=== PATIENT | female | born 1960 | race Caucasian/White ===

== ENCOUNTER → 2016-07-10 | Outpatient (CLI) | payer OTHER ==
[~2016-07-10] MED LIST: ALBUAER INH; AMLO-110 PO; ASCO1CAP3 PO; BACL10TA PO; BENZ100C7 PO; BENZ100C84 PO; BROM500T2 PO; CALC500C3; CLR10 PO; COEN30CA8 PO; COEN400C5 PO; CYAN500T PO; DRGTP12; DRGTP12 TOP; DXM/4 PO; FENT25DI10 TD; FLV1 PO; FNTTP25 TD; GFNSR600 PO; IMD2X PO; IPRASOL4 INH; LEVO112T4 PO; LVQ750 PO; MULT-506 PO; NAPR220T PO; NEBMAC; NYSS5 PO; OMEP40CA41 PO; ONDA8TAB6 PO; OPTIRAY 320 IV PRN; OXGN; OXYC1TAB3 PO; PRED5PAK3 PO; PROC1TAB5 PO; PSYL48.59 PO; SACC250C3 PO; SENN-61 PO; TRAM-10 PO; Tumeric PO; tumeric PO
--- NOTE | 2016-07-10 10:41 | DIAGNOSTIC IMAGING REPORT ---
CT SCAN OF THE ABDOMEN AND PELVIS WITH IV CONTRAST CLINICAL HISTORY: Lung cancer follow-up. COMPARISON STUDY: Abdominal CT dated 03/11/2016. TECHNIQUE: Following the IV administration of 115 cc of Optiray 320, CT scan of the abdomen and pelvis is performed from the lung bases to the proximal femora. Images are reviewed in the axial, sagittal, and coronal planes. IV contrast was administered without complication. Automated dose control exposure was utilized. CT DOSE: 1181.13 mGy.cm FINDINGS: Lung bases: The heart is normal in size noting trace pericardial effusion. There is extensive intralobular septal thickening and diffuse nodularity identified throughout the lower lobes bilaterally. The appearance is consistent with multifocal metastatic disease with probable lymphangitic spread of tumor. The largest nodule seen image #1 in the right lower lobe and measures 1.7 cm. No airspace consolidation is identified typical for pneumonia. There is a trace right pleural effusion. Liver: The contrast-enhanced liver is normal in size, contour, and attenuation. A 7 mm cyst is present in the right lobe. There is no intrahepatic biliary ductal dilatation. The hepatic veins and portal veins are patent. Gallbladder: There are calcified gallstones. Spleen: Normal in size and attenuation. Pancreas: Unremarkable. Adrenal glands: Unremarkable. Kidneys: The contrast enhanced kidneys demonstrate mild cortical atrophy and are without hydronephrosis. The kidneys enhance symmetrically. Left renal cysts measure up to 1.8 cm. Additional subcentimeter cortical hypodensities also likely represent cysts but are too small for definitive characterization. Abdominal vasculature: The abdominal aorta is normal in course and caliber. Bowel: The small bowel and colon are normal in course and caliber. The appendix is well-visualized and normal. Peritoneum: There is no intraperitoneal free air or abdominal ascites. There is a fat-containing umbilical hernia. Lymphadenopathy: Prominent iliac chain lymph nodes are again noted. These measure up to 9 mm in maximum length and are similar to the 03/11/2016 examination. Pelvic viscera: The bladder, uterus, and adnexa are normal as visualized. Calcified phleboliths are present in the pelvis. Skeletal structures: Subtle osteolytic/osteoblastic lesions are identified. The largest lesion is seen involving the superior left acetabulum on image #64. Additional subtle lesions are present within both radha, in the right sacrum. IMPRESSION: 1. Multifocal osseous metastatic disease throughout the bony pelvis is similar in appearance to 03/11/2016. 2. Extensive metastatic disease is present at both lung bases, likely representing lymphangitic spread of tumor. 3. No evidence of progressive metastatic disease is seen in the abdomen or pelvis. 4. Cholelithiasis. 5. Trace right pleural effusion. 6. Additional findings as above. Electronically signed by: Khang Whalen M.D. 07/10/2016 10:39 AM Dictated Date/Time: 07/10/2016 10:27 AM
--- NOTE | 2016-07-10 10:47 | DIAGNOSTIC IMAGING REPORT ---
CHEST CT WITH CONTRAST CT DOSE: HISTORY: Lung cancer. TECHNIQUE: Multiaxial CT images of the chest were performed following the intravenous administration of contrast. COMPARISON: Chest CT 03/11/2016. FINDINGS: The central airways are patent. No pneumothorax. No pleural effusions. No suspicious lytic or blastic osseous lesions. No significant pericardial effusion. No significant mediastinal or hilar lymphadenopathy. The central pulmonary arteries are patent. Interval progression of the nodular interstitial thickening consistent with lymphangitic spread of metastatic disease. The multiple scattered pulmonary nodules have also increased in size. Dominant masslike opacity within the right upper lobe has increased in size. This currently measures 3.9 cm, previous measuring 2.4 cm. IMPRESSION: Interval progression of the pulmonary metastatic disease. Electronically signed by: Michael Rodriguez M.D. 07/10/2016 10:45 AM Dictated Date/Time: 07/10/2016 10:39 AM
== END | disposition home or self-care (01) ==
LOC: C.CTS 09:38
PROVIDERS: ATTEND Internal Medicine Hematology & Oncology
DX: C34.80 Malignant neoplasm of overlapping sites of unspecified bronchus and lung (principal)

== ENCOUNTER → 2016-09-03 | Outpatient (CLI) | payer OTHER ==
--- NOTE | 2016-09-03 15:10 | DIAGNOSTIC IMAGING REPORT ---
CT OF THE CHEST WITH IV CONTRAST CLINICAL HISTORY: NON SMALL CELL LUNG CANCER COMPARISON STUDY: 07/10/2016 TECHNIQUE: Following the IV administration of 92 mL of Optiray-320, CT of the thorax was performed from the thoracic inlet to the lung bases. Images are reviewed in the axial, sagittal, and coronal planes. IV contrast was administered without complication. CT DOSE: 542.22 mGy.cm FINDINGS: Thyroid: Imaged portions of the thyroid gland are normal in appearance. Thoracic aorta: The thoracic aorta is normal in course and caliber, noting standard 3-vessel arch anatomy. No aneurysm or dissection is seen. Pulmonary vasculature: The pulmonary trunk is normal in caliber. There are no central filling defects identified to suggest pulmonary embolus. Note that this examination was not protocoled for the evaluation of pulmonary emboli. HEART: The heart is mildly enlarged. There is no significant pericardial effusion. Lungs and pleural spaces: There is septal edema. There is interval increase in the innumerable bilateral pulmonary nodules which now appear somewhat confluent. The dominant right upper lobe masslike opacity measures 5.5 cm. Mediastinum: There is no mediastinal lymphadenopathy. [place]: There is no evidence of pathologic hilar adenopathy. Axilla: Clear. Upper abdomen: There is a stable 1 cm hypodensity within the liver likely representing a cyst. The 17 mm left renal cyst. There is cholelithiasis. Skeletal structures: There are no lytic or blastic osseous lesions. IMPRESSION: 1. Significant interval progression in the extensive bilateral nodular airspace opacities with interstitial thickening. The findings are likely secondary to progressive metastatic disease with lymphangitic spread. Electronically signed by: Leon Calvin M.D. 09/03/2016 3:08 PM Dictated Date/Time: 09/03/2016 3:03 PM
== END | disposition home or self-care (01) ==
LOC: C.CTS 14:40
PROVIDERS: ATTEND Internal Medicine Hematology & Oncology
DX: R06.02 Shortness of breath (principal); R05 Cough; Z85.118 Personal history of other malignant neoplasm of bronchus and lung

== ENCOUNTER 2016-11-16 16:57 | Inpatient (IN) | payer OTHER ==
[~2016-11-16] VITALS: Ht 162.6 cm; Wt 77.6 kg
[~2016-11-16 16:57] MED LIST changes: -BENZ100C7 PO; -BENZ100C84 PO; -CALC500C3; -COEN30CA8 PO; -DRGTP12 TOP; -FNTTP25 TD; -GFNSR600 PO; -IMD2X PO; -IPRASOL4 INH; -LVQ750 PO; -NEBMAC; -NYSS5 PO; -OMEP40CA41 PO; -OPTIRAY 320 IV PRN; -OXGN; -PRED5PAK3 PO; -SACC250C3 PO; -tumeric PO
[2016-11-16] MEDS ORDERED: SODIUM CHLORIDE 0.9% 1000ML 2,000 ML IV STA (17:30)
[2016-11-16 17:48] LABS: VEN BLOOD GAS BASE EXCESS 3.7 mEq/L; VENOUS BLOOD GAS PCO2 45 mmHg (38.0-50.0); VENOUS BLOOD GAS PO2 31 mmHg
[2016-11-16 17:51] LABS: VEN BLD GAS O2 SATURATION < 60.0 %
--- NOTE | 2016-11-16 17:58 | DIAGNOSTIC IMAGING REPORT ---
CHEST ONE VIEW PORTABLE HISTORY: 56 years-old Female acute chest pain with shortness of breath. History of lung cancer. COMPARISON: Chest CT 09/03/2016, chest radiograph 12/19/2015 TECHNIQUE: Portable upright AP view of the chest. FINDINGS: Cardiac silhouette is enlarged. There is progression of the multifocal somewhat confluent appearance of pulmonary nodules throughout the lungs bilaterally with conglomerate opacities present within the left lung base. There is blunting of left costophrenic angle. No pneumothorax identified. The bones appear grossly intact. IMPRESSION: Progression of multifocal confluent appearance of bilateral multilobar distribution of pulmonary nodules. Focal airspace opacities within the left lung base with small left pleural effusion concerning for superimposed pneumonia. The above report was generated using voice recognition software. It may contain grammatical, syntax or spelling errors. Electronically signed by: Raul Coreas M.D. 11/16/2016 5:57 PM Dictated Date/Time: 11/16/2016 5:54 PM
[2016-11-16] MEDS ORDERED: CEFEPIME IV 1,000 MG in DEXTROSE 5% 100ML 100 ML IV STA (18:02)
[2016-11-16] MEDS ORDERED: SODIUM CHLORIDE 0.9% 1000ML 1,000 ML IV STA (18:02)
[2016-11-16 18:14] LABS: BASO % 0.1 %; BASO ABS # 0.01 K/uL (0-0.2); EOS % 0.5 %; HEMATOCRIT 33.2 % (37-47); IG% 2.2 %; LYMPH % 0.8 %; LYMPH ABS # 0.16 K/uL (1.2-3.4); MEAN CELL VOLUME 73.8 fL (80-100); MEAN CORPUSCULAR HEMOGLOBIN 23.1 pg (25-34); MEAN CORPUSCULAR HGB CONC 31.3 g/dl (32-36); MEAN PLATELET VOLUME 9.3 fL (7.4-10.4); MONO % 5.7 %; NEUT % 90.7 %; PLATELET COUNT 293 K/uL (130-400); WHITE BLOOD COUNT 19.13 K/uL (4.8-10.8)
[2016-11-16 18:19] LABS: ISTAT CREATININE 0.5 mg/dl (0.6-1.3); ISTAT HEMOGLOBIN 12.6 g/dl (12.0-16.0)
[2016-11-16] MEDS ORDERED: LEVAQUIN 750MG / 150ML D5W IV STA (18:20)
[2016-11-16 18:25] VITALS: PULSE 114; O2SAT 96
[2016-11-16 18:27] LABS: INR 1.1 (0.9-1.1)
[2016-11-16] MEDS ORDERED: OPTIRAY 320 IV PRN (18:30)
[2016-11-16 18:33] LABS: BUN/CREATININE RATIO 37.6 (10-20); CALCIUM 8.2 mg/dl (8.5-10.1); CREATININE 0.45 mg/dl (0.60-1.20); POTASSIUM 4.2 mmol/L (3.5-5.1)
--- NOTE | 2016-11-16 18:38 | DIAGNOSTIC IMAGING REPORT ---
(CHEST FOR PE) ANGIO WITH CT DOSE: 598.21 mGy.cm HISTORY: 56 years-old Female presents with acute shortness of breath, hypoxia and confusion. History of lung cancer. TECHNIQUE: Multiple CTA images of the chest were obtained after the intravenous administration of 94 ml Optiray 320. Coronal and sagittal MIPS were obtained from the axial data set and were submitted for review. A dose lowering technique was utilized adhering to the principles of ALARA. COMPARISON: Chest CT 09/03/2016 FINDINGS: CTA: Heart is normal in size with trace pericardial effusion. Thoracic aorta is normal in course and caliber without dissection or aneurysm. The pulmonary arterial tree is well-opacified to the subsegmental branches, however evaluation is limited secondary to extensive respiratory motion. No focal pulmonary arterial tree filling defects are seen to suggest pulmonary embolus. There is reflux of contrast into the IVC, likely secondary to technique. CT CHEST: No dominant thyroid nodule is identified. No pathologic adenopathy about the chest is seen. There is a small left pleural effusion. Segmental airspace consolidation is present within the left lower lobe, notably involving the basilar segments. Additional scattered consolidative opacities are seen within the superior segment left lower lobe. This consolidation demonstrates nonuniform enhancement suggesting pneumonia. There is progression of diffuse nodular intralobular septal thickening with confluent pulmonary nodules and scattered groundglass opacities in a multilobar distribution bilaterally. There is a crazy paving pattern present within the left upper lobe. Central airways appear patent. 8 mm low attenuating lesion of the hepatic dome is unchanged from comparison. Nonspecific mild marek hepatis adenopathy is seen with lymph nodes measuring up to 1.0 cm. There is mild edema about the left flank subcutaneous tissues. Lytic lesions measuring up to 4 mm are seen within the mid vertebral bodies, notably at T6, T7 and T8, new from prior exam suspicious for metastasis no associated pathologic fracture. Similar-appearing lesion is seen at L1. IMPRESSION: 1. Limited study secondary to extensive respiratory motion. Within the limitations of the study, there is no acute aortic pathology or evidence of pulmonary thromboembolic disease. 2. Segmental airspace opacities of the left lower lobe with small left pleural effusion suggests pneumonia. 3. 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 Crazy paving pattern of disease involves the left upper lobe. 4. Interval development of scattered lytic lesions throughout the thoracic and imaged upper lumbar spine without pathologic fracture suggest bony metastasis. The above report was generated using voice recognition software. It may contain grammatical, syntax or spelling errors. Electronically signed by: Raul Coreas M.D. 11/16/2016 6:36 PM Dictated Date/Time: 11/16/2016 6:23 PM
[2016-11-16 18:45] LABS: CKMB/CK RATIO 4.4 (0-3.0)
[2016-11-16 18:52] LABS: ANISOCYTOSIS PRESENT; COMPLETE YES; HYPERSEGMENTED POLYS 1+; SPHEROCYTE 1+
[2016-11-16] MEDS ORDERED: OXYCODONE HCL IR 5 MG TAB (IMMEDIATE RELEASE) PO PRN (19:15)
[2016-11-16] MEDS ORDERED: ONDANSETRON INJ 2 MG/ML 2 ML VIAL IV PRN (19:15)
[2016-11-16] MEDS ORDERED: ACETAMINOPHEN 325 MG TAB PO PRN (19:15)
[2016-11-16] MEDS ORDERED: TRAMADOL HCL 50 MG TAB PO PRN (19:15)
[2016-11-16] MEDS ORDERED: BACLOFEN 10 MG TAB PO PRN (19:15)
[2016-11-16] MEDS ORDERED: NITROGLYCERIN 0.4 MG SL PER TAB CHARGE SL PRN (19:15)
[2016-11-16] MEDS ORDERED: VANCOMYCIN 1GM/270ML NSS ONE (19:26)
[2016-11-16] MEDS ORDERED: VANCOMYCIN INJ 2,000 MG in SODIUM CHLORIDE 0.9% 500ML 500 ML IV STA (19:31)
[2016-11-16] MEDS ORDERED: PIPERACILLIN/TAZOBACTAM 4.5 GM/100ML D5W IV STA (19:32)
[2016-11-16 19:39] LABS: URINE APPEARANCE CLEAR (CLEAR); URINE BILIRUBIN NEG (NEG); URINE COLOR YELLOW; URINE EPITHELIAL CELL AUTO 20-30 /lpf (0-5); URINE NITRITE POS (NEG); URINE PH 6.5 (4.5-7.5); URINE SPECIFIC GRAVITY > 1.045 (1.000-1.030); UROBILINOGEN NEG (NEG); ZZUR CULT IF INDIC CLEAN CATCH YES
[2016-11-16] MEDS ORDERED: FNTTP25 TD (19:41)
[2016-11-16 19:45] LABS: MANUAL MICROSCOPIC REQUIRED? NO; REVIEW REQ? NO
[2016-11-16] MEDS ORDERED: PIPERACILL/TAZOBAC CONSULT ACTIVE PRN (19:45)
[2016-11-16] MEDS ORDERED: VANCOMYCIN CONSULT ACTIVE PRN (19:45)
[2016-11-16 20:22] VITALS: PULSE 117; O2SAT 94
[2016-11-16 20:28] VITALS: BP 164/101; PULSE 117; TEMP 36.9; O2SAT 91; Ht 162.6 cm; Wt 77.6 kg
[2016-11-16] MEDS: FENTANYL PATCH REMOVE & WASTE SCH (20:59)
[2016-11-16] MEDS ORDERED: METHYLPREDNISOLONE IV 125 MG in SYRINGE 0 ML IV ONE (21:00)
[2016-11-16] MEDS: FENTANYL 12 MCG/HR TDSY TD SCH (21:00)
[2016-11-16] MEDS: ENOXAPARIN 40 MG/0.4 ML SYR SC SCH (21:12)
--- NOTE | 2016-11-16 21:14 | History and Physical ---
History & Physical Date & Time of Service: Nov 16, 2016 at 21:03 Chief Complaint: Acute Respiratory Failure With Hypoxia And Primary Care Physician: Reynold Marks M.D. History of Present Illness Source: patient, family The patient is a 56-year-old female who underwent combination chemotherapy and radiation therapy for lung cancer, and has had progressively worsening shortness of breath over the past several days. She became acutely worse today , presents to the emergency department, and was immediately placed on BiPAP with improvement in her breathing. She reports having an intermittently productive cough. Social History Smoking Status: Former Smoker Smokeless Tobacco Use: No Alcohol Use: none Drug Use: none Immunizations History of Influenza Vaccine: Unknown History of Tetanus Vaccine?: Unknown History of Pneumococcal: Unknown History of Hepatitis B Vaccine: Unknown Multi-Drug Resistant Organisms History of MDRO: No Allergies Coded Allergies: No Known Allergies (Unverified , 11/16/16) PER PATIENT AND DEION IN ASU Home Medications Scheduled Amlodipine (Norvasc), 5 MG PO DAILY Ascorbic Acid (Vitamin C), 1 CAP PO BID Bromelains (Bromelain), 1 TAB PO DAILY Coenzyme Q10 (Ubidecarenone) (Coq10), 1 CAP PO DAILY Cyanocobalamin (Vitamin B-12), 500 MCG PO DAILY Dexamethasone (Decadron), 8 MG PO BID Fentanyl (Duragesic), 12 MCG TD CQ72HR Fentanyl (Fentanyl), q72 hrs Fentanyl (Fentanyl), 25 MCG TD Q72 Folic Acid (Folic Acid), 1 MG PO DAILY Levothyroxine Sodium (Levothyroxine Sodium), 112 MCG PO DAILY Loratadine (Claritin), 10 MG PO DAILY Multivitamin (Multivitamin), 1 TAB PO DAILY Psyllium (Metamucil), 1 DOSE PO DAILY [Tumeric], 400 MG PO DAILY Scheduled PRN Albuterol Sulfate (Proventil Hfa), 1 INHA INH QID PRN for Shortness of Breath Baclofen (Lioresal), 10 MG PO TID PRN for Pain Naproxen Sodium (Aleve), 220 MG PO BID PRN for Pain Ondansetron Hcl (Zofran), 8 MG PO Q8 PRN for Nausea or Vomiting Oxycodone Ir (Roxicodone Ir), 5 MG PO Q6H PRN for Pain Prochlorperazine Maleate (Compazine), 10 MG PO QID PRN for Nausea or Vomiting Senna (Senokot), 1 TAB PO BID PRN for Constipation Tramadol (Ultram), 50 MG PO Q4H PRN for Pain Review of Systems The patient denies lower extremity swelling, vision change, hearing change, sore throat, fevers, chills, sweats, weight change, fatigue, nausea, vomiting, diarrhea or constipation, abdominal pain, pelvic pain, blood in urine or stool, dysuria, urinary frequency or urgency, lightheadedness, dizziness, headache, memory loss, rash, abnormal bruising or bleeding, imbalance, focal or generalized weakness, numbness or tingling in arms or legs, generalized arthralgias or myalgias, back or neck pain, night sweats. The review of systems is otherwise negative other than for that already noted above, and at least 10 systems have been reviewed. Physical Exam Vital Signs Date Time Temp Pulse Resp B/P (MAP) Pulse Ox O2 Delivery O2 Flow Rate FiO2 11/16/16 20:28 36.9 117 30 164/101 91 BiPAP 60 11/16/16 19:36 114 32 145/88 96 BiPAP 11/16/16 19:28 113 36 170/98 98 BiPAP 11/16/16 18:23 115 40 133/101 96 BiPAP 11/16/16 17:55 117 11/16/16 17:49 117 135/90 96 Non-Rebreather 11/16/16 17:20 36.7 116 30 108/73 40 Room Air 11/16/16 17:20 40 Room Air The patient is awake, alert and oriented 3, normocephalic and atraumatic, lying in bed , on BiPAP, and no longer in moderate respiratory distress. HEENT--PERRL, EOMI, mucous membranes and oropharynx dry. Neck--supple, no JVD or bruits, thyroid normal, trachea midline, no adenopathy. Heart--normal S1 and S2, no extra beats, no murmurs, rubs or gallops. Lungs--coarse breath sounds bilaterally, no respiratory distress, no accessory muscle use. Abdomen--normal bowel sounds and soft, nontender and nondistended, no hernias or masses, no organomegaly. Extremities--no cyanosis, clubbing or edema. There are good distal pulses b/l. Dermatologic--normal skin turgor, normal color, warm and dry, no abnormal lymph nodes, no rash. Neurologic--cranial nerves II through XII grossly intact, motor and sensory examination normal. Rheumatologic--normal range of motion, nontender, muscles and joints. Psychiatric--normal affect. Diagnostics Laboratory Results Results Past 24 Hours Test 11/16/16 17:40 11/16/16 17:55 11/16/16 17:58 11/16/16 18:03 Range/Units Venous Blood pH 7.43 7.36-7.41 Venous Blood Partial Pressure CO2 45 38.0-50.0 mmHg Venous Blood Partial Pressure O2 31 mmHg Venous Blood HCO3 29 mmol/L Venous Blood Oxygen Saturation < 60.0 % Venous Blood Base Excess 3.7 mEq/L White Blood Count 19.13 4.8-10.8 K/uL Red Blood Count 4.50 4.2-5.4 M/uL Hemoglobin 10.4 12.0-16.0 g/dL Hematocrit 33.2 37-47 % Mean Corpuscular Volume 73.8 80-100 fL Mean Corpuscular Hemoglobin 23.1 25-34 pg Mean Corpuscular Hemoglobin Concent 31.3 32-36 g/dl Platelet Count 293 130-400 K/uL Mean Platelet Volume 9.3 7.4-10.4 fL Neutrophils (%) (Auto) 90.7 % Lymphocytes (%) (Auto) 0.8 % Monocytes (%) (Auto) 5.7 % Eosinophils (%) (Auto) 0.5 % Basophils (%) (Auto) 0.1 % Neutrophils # (Auto) 17.34 1.4-6.5 K/uL Lymphocytes # (Auto) 0.16 1.2-3.4 K/uL Monocytes # (Auto) 1.09 0.11-0.59 K/uL Eosinophils # (Auto) 0.10 0-0.5 K/uL Basophils # (Auto) 0.01 0-0.2 K/uL RDW Standard Deviation 50.1 36.4-46.3 fL RDW Coefficient of Variation 20.4 11.5-14.5 % Immature Granulocyte % (Auto) 2.2 % Immature Granulocyte # (Auto) 0.43 0.00-0.02 K/uL Nucleated RBC Absolute Count (auto) 0.10 0-0 K/uL Nucleated Red Blood Cells % 0.5 % Hypersegmented Polys 1+ Anisocytosis PRESENT Spherocytes 1+ Prothrombin Time 12.0 9.0-12.0 SECONDS Prothromb Time International Ratio 1.1 0.9-1.1 Sodium Level 128 136-145 mmol/L Potassium Level 4.2 3.5-5.1 mmol/L Chloride Level 92 98-107 mmol/L Carbon Dioxide Level 29 21-32 mmol/L Anion Gap 7.0 16.0 16-25 mmol/L Blood Urea Nitrogen 17 7-18 mg/dl Creatinine 0.45 0.60-1.20 mg/dl Est Creatinine Clear Calc Drug Dose 136.6 ml/min Estimated GFR () 130.7 Estimated GFR (Non- 112.8 BUN/Creatinine Ratio 37.6 10-20 Random Glucose 112 70-99 mg/dl Calcium Level 8.2 8.5-10.1 mg/dl Magnesium Level 2.0 1.8-2.4 mg/dl Total Bilirubin 0.5 0.2-1 mg/dl Direct Bilirubin 0.2 0-0.2 mg/dl Aspartate Amino Transf (AST/SGOT) 17 15-37 U/L Alanine Aminotransferase (ALT/SGPT) 11 12-78 U/L Alkaline Phosphatase 122 45-117 U/L Total Creatine Kinase 59 26-192 U/L Creatine Kinase MB 2.6 0.5-3.6 ng/ml Creatine Kinase MB Ratio 4.4 0-3.0 Troponin I 0.188 0-0.045 ng/ml Total Protein 6.4 6.4-8.2 gm/dl Albumin 2.1 3.4-5.0 gm/dl Bedside Hemoglobin 12.6 12.0-16.0 g/dl Bedside Hematocrit 37 37-47 % Bedside Sodium 128 135-144 mEq/L Bedside Potassium 4.3 3.3-5.0 mEq/L Bedside Chloride 90 101-112 mEq/L Bedside Total CO2 28 24-31 mEq/l Bedside Blood Urea Nitrogen 17 7-18 mg/dl Bedside Creatinine 0.5 0.6-1.3 mg/dl Bedside Glucose (other) 116 70-99 mg/dl Bedside Ionized Calcium (Anival) 1.00 1.12-1.32 mmol/l Bedside Lactic Acid Venous 1.61 0.90-1.70 mmol/L Test 11/16/16 19:20 Range/Units Urine Color YELLOW Urine Appearance CLEAR CLEAR Urine pH 6.5 4.5-7.5 Urine Specific [place] > 1.045 1.000-1.030 Urine Protein TRACE NEG Urine Glucose (UA) NEG NEG Urine Ketones 2+ NEG Urine Occult Blood NEG NEG Urine Nitrite POS NEG Urine Bilirubin NEG NEG Urine Urobilinogen NEG NEG Urine Leukocyte Esterase TRACE NEG Urine WBC (Auto) 1-5 0-5 /hpf Urine RBC (Auto) 0-4 0-4 /hpf Urine Hyaline Casts (Auto) 1-5 0-5 /lpf Urine Epithelial Cells (Auto) 20-30 0-5 /lpf Urine Bacteria (Auto) 4+ NEG Microbiology Results 11/16/16 Blood Culture, Received Pending 11/16/16 Blood Culture, Received Pending 11/16/16 Urine Culture, Received Pending Diagnostic Radiology Patient Name: DUNG CELAYA Unit Number: [id number] Dictated: 11/16/161753 Transcribed: 11/16/161753 [employer] Printed Date/Time: [~ rep prt dt]/[~ rep prt tm] [~ rep ct labl] - [~ rep ct ivnm] [facility] Radiology Department [place] [id number] Dictated: 11/16/161753 Transcribed: 11/16/161753 [employer] Printed Date/Time: [~ rep prt dt]/[~ rep prt tm] [~ rep ct labl] - [~ rep ct ivnm] [~ rep ct add3]] CHEST ONE VIEW PORTABLE HISTORY: 56 years-old Female acute chest pain with shortness of breath. History of lung cancer. COMPARISON: Chest CT 09/03/2016, chest radiograph 12/19/2015 TECHNIQUE: Portable upright AP view of the chest. FINDINGS: Cardiac silhouette is enlarged. There is progression of the multifocal somewhat confluent appearance of pulmonary nodules throughout the lungs bilaterally with conglomerate opacities present within the left lung base. There is blunting of left costophrenic angle. No pneumothorax identified. The bones appear grossly intact. IMPRESSION: Progression of multifocal confluent appearance of bilateral multilobar distribution of pulmonary nodules. Focal airspace opacities within the left lung base with small left pleural effusion concerning for superimposed pneumonia. The above report was generated using voice recognition software. It may contain grammatical, syntax or spelling errors. Electronically signed by: Raul Coreas M.D. 11/16/2016 5:57 PM Dictated Date/Time: 11/16/2016 5:54 PM The status of this report is Signed. Draft = Not yet reviewed or approved by Radiologist. Signed = Reviewed and approved by Radiologist. <AttendingPhy></AttendingPhy> <FamilyPhy>Reynold Marks M.D.</FamilyPhy> < PrimaryPhy>Reynold Marks M.D.</PrimaryPhy> <UnitNumber>[id number]</UnitNumber > <VisitNumber>[id number]</VisitNumber> <PatientName>DUNG CELAYA</ PatientName> <DateOfBirth>1960</DateOfBirth> <Location>C.EDB</Location> < ServiceDate>11/16/16</ServiceDate> <MNE>ESINDI</MNE> <OrderingPhy>Lj Moreno DO</OrderingPhy> <OrderingPhyMNE>f rep ord dr mendez</OrderingPhyMNE> < DictatingPhyMNE>f rep dict dr mendez</DictatingPhyMNE> <CCListMNE>f rep ct mne</ CCListMNE> <AdmittingPhyMNE>f pt admit dr mendez</AdmittingPhyMNE> <AttendingPhyMNE >f pt attend dr mendez</AttendingPhyMNE> <ConsultingPhyMNE>f pt consult dr mendez</ConsultingPhyMNE> <FamilyPhyMNE>f pt fam dr mendez</FamilyPhyMNE> <OtherPhyMNE>f pt other dr mendez</OtherPhyMNE> < PrimaryPhyMNE>f pt prim care dr mendez</PrimaryPhyMNE> <ReferringPhyMNE>f pt referring dr mendez</ReferringPhyMNE> Patient Name: DUNG CELAYA Unit Number: [id number] Dictated: 11/16/161822 Transcribed: 11/16/161822 JRB Printed Date/Time: [~ rep prt dt]/[~ rep prt tm] [~ rep ct labl] - [~ rep ct ivnm] [facility] Radiology Department [place], [place] [id number] Dictated: 11/16/161822 Transcribed: 11/16/161822 [employer]ESM[employer] Printed Date/Time: [~ rep prt dt]/[~ rep prt tm] [~ rep ct labl] - [~ rep ct ivnm] [~ rep ct add3]] (CHEST FOR PE) ANGIO WITH CT DOSE: 598.21 mGy.cm HISTORY: 56 years-old Female presents with acute shortness of breath, hypoxia and confusion. History of lung cancer. TECHNIQUE: Multiple CTA images of the chest were obtained after the intravenous administration of 94 ml Optiray 320. Coronal and sagittal MIPS were obtained from the axial data set and were submitted for review. A dose lowering technique was utilized adhering to the principles of ALARA. COMPARISON: Chest CT 09/03/2016 FINDINGS: CTA: Heart is normal in size with trace pericardial effusion. Thoracic aorta is normal in course and caliber without dissection or aneurysm. The pulmonary arterial tree is well-opacified to the subsegmental branches, however evaluation is limited secondary to extensive respiratory motion. No focal pulmonary arterial tree filling defects are seen to suggest pulmonary embolus. There is reflux of contrast into the IVC, likely secondary to technique. CT CHEST: No dominant thyroid nodule is identified. No pathologic adenopathy about the chest is seen. There is a small left pleural effusion. Segmental airspace consolidation is present within the left lower lobe, notably involving the basilar segments. Additional scattered consolidative opacities are seen within the superior segment left lower lobe. This consolidation demonstrates nonuniform enhancement suggesting pneumonia. There is progression of diffuse nodular intralobular septal thickening with confluent pulmonary nodules and scattered groundglass opacities in a multilobar distribution bilaterally. There is a crazy paving pattern present within the left upper lobe. Central airways appear patent. 8 mm low attenuating lesion of the hepatic dome is unchanged from comparison. Nonspecific mild marek hepatis adenopathy is seen with lymph nodes measuring up to 1.0 cm. There is mild edema about the left flank subcutaneous tissues. Lytic lesions measuring up to 4 mm are seen within the mid vertebral bodies, notably at T6, T7 and T8, new from prior exam suspicious for metastasis no associated pathologic fracture. Similar-appearing lesion is seen at L1. IMPRESSION: 1. Limited study secondary to extensive respiratory motion. Within the limitations of the study, there is no acute aortic pathology or evidence of pulmonary thromboembolic disease. 2. Segmental airspace opacities of the left lower lobe with small left pleural effusion suggests pneumonia. 3. 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 Crazy paving pattern of disease involves the left upper lobe. 4. Interval development of scattered lytic lesions throughout the thoracic and imaged upper lumbar spine without pathologic fracture suggest bony metastasis. The above report was generated using voice recognition software. It may contain grammatical, syntax or spelling errors. Electronically signed by: Raul Coeras M.D. 11/16/2016 6:36 PM Dictated Date/Time: 11/16/2016 6:23 PM The status of this report is Signed. Draft = Not yet reviewed or approved by Radiologist. Signed = Reviewed and approved by Radiologist. <AttendingPhy></AttendingPhy> <FamilyPhy>Reynold Marks M.D.</FamilyPhy> < PrimaryPhy>Reynold Marks M.D.</PrimaryPhy> <UnitNumber>[id number]</UnitNumber > <VisitNumber>[id number]</VisitNumber> <PatientName>DUNG CELAYA</ PatientName> <DateOfBirth>1960</DateOfBirth> <Location>C.EDB</Location> < ServiceDate>11/16/16</ServiceDate> <MNE>ESINDI</MNE> <OrderingPhy>Lj Moreno DO</OrderingPhy> <OrderingPhyMNE>f rep ord dr mendez</OrderingPhyMNE> < DictatingPhyMNE>f rep dict dr mendez</DictatingPhyMNE> <CCListMNE>f rep ct mne</ CCListMNE> <AdmittingPhyMNE>f pt admit dr mendez</AdmittingPhyMNE> <AttendingPhyMNE >f pt attend dr mendez</AttendingPhyMNE> <ConsultingPhyMNE>f pt consult dr mendez</ConsultingPhyMNE> <FamilyPhyMNE>f pt fam dr mendez</FamilyPhyMNE> <OtherPhyMNE>f pt other dr mendez</OtherPhyMNE> < PrimaryPhyMNE>f pt prim care dr mendez</PrimaryPhyMNE> <ReferringPhyMNE>f pt referring dr mendez</ReferringPhyMNE> EKG EKG shows sinus tachycardia at 117 bpm, right bundle branch block, no acute ST- T changes Impression Assessment and Plan Acute respiratory failure with hypoxia and hypercapnia--The patient will be admitted to telemetry for serial cardiac enzymes, cardiac rhythm monitoring and a 2-D echocardiogram with Dopplers. Due to a combination of worsening metastatic disease and pneumonia. Continue BiPAP. Xopenex with Atrovent nebulizers/HFA. Vancomycin IV, Zosyn IV and Levaquin IV. Solu-Medrol 125 mg IV now and then 60 mg IV every 6 hours. Hypertension--continue current regimen. Hypothyroidism--continue levothyroxine. Chronic pain syndrome--continue baclofen, tramadol, hydrocodone and had morphine IV Level of Care Telemetry Advanced Directives Existing Advance Directive: No Existing Living Will: No Existing Power of Manufacturing Group Leader: No Resuscitation Status FULL RESUSCITATION VTE Prophylaxis VTE Risk Assessment Done? Y/N: Yes Risk Level: Moderate Given or contraindicated: SCD's Social Service Consult Cancer Patient Under [place]
--- NOTE | 2016-11-16 22:30 | Pharmacy Progress Note ---
Pharmacy Abx Initial Consult Date of Service Nov 16, 2016. Pharmacy Dosing Scope Date of Consult: 11/16/16 Consultation requested by: Dr. Reilly Pharmacy is consulted to initiate vancomycin IV dosing therapy, order appropriate labs and adjust drug dose/frequency. Subjective The patient is a 56 year old female admitted on Nov 16, 2016 at 19:17. Objective Height (Feet): 5 Height (Inches): 4.00 Weight (Kilograms): 78.000 Vital Signs (Past 12Hrs) Vital Signs Past 12 Hours Date Time Temp Pulse Resp B/P (MAP) Pulse Ox O2 Delivery O2 Flow Rate FiO2 11/16/16 20:28 36.9 117 30 164/101 91 BiPAP 60 11/16/16 20:22 117 94 60 11/16/16 19:36 114 32 145/88 96 BiPAP 11/16/16 19:28 113 36 170/98 98 BiPAP 11/16/16 18:25 114 37 96 BiPAP 60 11/16/16 18:25 114 96 60 11/16/16 18:23 115 40 133/101 96 BiPAP 11/16/16 17:55 117 11/16/16 17:49 117 135/90 96 Non-Rebreather 11/16/16 17:20 36.7 116 30 108/73 40 Room Air 11/16/16 17:20 40 Room Air Lab Results (24Hrs) Laboratory Tests (24 Hours) Test 11/16/16 17:55 White Blood Count 19.13 K/uL (4.8-10.8) H Red Blood Count 4.50 M/uL (4.2-5.4) Hemoglobin 10.4 g/dL (12.0-16.0) L Hematocrit 33.2 % (37-47) L Mean Corpuscular Volume 73.8 fL (80-100) L Mean Corpuscular Hemoglobin 23.1 pg (25-34) L Mean Corpuscular Hemoglobin Concent 31.3 g/dl (32-36) L Platelet Count 293 K/uL (130-400) Mean Platelet Volume 9.3 fL (7.4-10.4) Neutrophils (%) (Auto) 90.7 % Lymphocytes (%) (Auto) 0.8 % Monocytes (%) (Auto) 5.7 % Eosinophils (%) (Auto) 0.5 % Basophils (%) (Auto) 0.1 % Neutrophils # (Auto) 17.34 K/uL (1.4-6.5) H Lymphocytes # (Auto) 0.16 K/uL (1.2-3.4) L Monocytes # (Auto) 1.09 K/uL (0.11-0.59) H Eosinophils # (Auto) 0.10 K/uL (0-0.5) Basophils # (Auto) 0.01 K/uL (0-0.2) Total Creatine Kinase 59 U/L (26-192) Micro Results Date/Time Source Procedure Growth Status 11/16/16 17:55 Blood Blood Culture Pending Received 11/16/16 17:35 Blood Blood Culture Pending Received 11/16/16 19:20 Urine , Clean Catch Urine Culture Pending Received Risk Factors for Resistance * Immunocompromised (chemotherapy) Assessment & Plan Assessment 56 year old female with a PMH of lung cancer receiving radiation and chemotherapy who is admitted with sudden SOB. She improved on BiPAP in the ED. Plan vancomycin/Zosyn/Levaquin for treatment of pneumonia Vancomycin IV * Loading dose: 2000 mg (25 mg/kg) * Maintenance dose: 1250 mg IV (16 mg/kg) every 10 hours * Goal trough level for pulmonary source : 15 to 20 mcg/mL * Trough ordered for 11/18/16 prior to noon dose Piperacillin/tazobactam * 3.375 g bolus administered over 30 minutes, then 3.375 g IV extended infusion every 8 hours for CrCl greater than 20 mL/min Pharmacy will continue to follow and will adjust dose/frequency as necessary. Thank you.
--- NOTE | 2016-11-16 22:54 | EMERGENCY ROOM VISIT NOTE ---
History Report prepared by Geovannaibjackelyn: Genia Ku Under the Supervision of: Dr. Lj Moreno D.O. First contact with patient: 17:24 Chief Complaint: SHORTNESS OF BREATH Stated Complaint: SOB,CONFUSED,LATHARGIC,CHEMO/RADIATION Nursing Triage Summary: Right lung CA with mets to the left pelvis and hip; s/p radiation x 10 days on wednesday. she had both chemo and radiation. Lethargic since that time. Diarrhea. Confused today with difficulty breathing. Labored breathing. History of Present Illness The patient is a 56 year old female who presents to the Emergency Room with complaints of worsening shortness of breath for the past day. She is accompanied by her sister and boyfriend. 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 She last underwent radiation and chemotherapy 10 days ago. She has been lethargic since that time and became confused with increased difficulty breathing today. The patient has also experienced diarrhea for the past few days, but her sister states it seems to have resolved. She reports the patient had very labored breathing when she went to visit her this afternoon, so they decided to bring her to the ED. Her family admits to increased coughing but denies any fevers. Source of History: patient, family, spouse/significant other (boyfriend) Onset: past day Position: chest Quality: other (shortness of breath) Timing: worsening Associated Symptoms: + cough, No fevers, No headache, No chest pain, No nausea, No vomiting, No melena, No diarrhea, No urinary symptoms Review of Systems See HPI for pertinent positives & negatives. A total of 10 systems reviewed and were otherwise negative. Past Medical & Surgical Medical Problems: (1) Acute respiratory failure with hypoxia and hypercapnia (2) Hypoxia (3) Small cell lung cancer Social History Smoking Status: Never Smoker Smokeless Tobacco Use: No Alcohol Use: none Drug Use: none Marital Status: in relationship Housing Status: lives with significant other Occupation Status: unemployed Current/Historical Medications Scheduled Amlodipine (Norvasc), 5 MG PO DAILY Ascorbic Acid (Vitamin C), 1 CAP PO BID Bromelains (Bromelain), 1 TAB PO DAILY Coenzyme Q10 (Ubidecarenone) (Coq10), 1 CAP PO DAILY Cyanocobalamin (Vitamin B-12), 500 MCG PO DAILY Dexamethasone (Decadron), 8 MG PO BID Fentanyl (Duragesic), 12 MCG TD CQ72HR Fentanyl (Fentanyl), q72 hrs Fentanyl (Fentanyl), 25 MCG TD Q72 Folic Acid (Folic Acid), 1 MG PO DAILY Levothyroxine Sodium (Levothyroxine Sodium), 112 MCG PO DAILY Loratadine (Claritin), 10 MG PO DAILY Multivitamin (Multivitamin), 1 TAB PO DAILY Psyllium (Metamucil), 1 DOSE PO DAILY [Tumeric], 400 MG PO DAILY Scheduled PRN Albuterol Sulfate (Proventil Hfa), 1 INHA INH QID PRN for Shortness of Breath Baclofen (Lioresal), 10 MG PO TID PRN for Pain Naproxen Sodium (Aleve), 220 MG PO BID PRN for Pain Ondansetron Hcl (Zofran), 8 MG PO Q8 PRN for Nausea or Vomiting Oxycodone Ir (Roxicodone Ir), 5 MG PO Q6H PRN for Pain Prochlorperazine Maleate (Compazine), 10 MG PO QID PRN for Nausea or Vomiting Senna (Senokot), 1 TAB PO BID PRN for Constipation Tramadol (Ultram), 50 MG PO Q4H PRN for Pain Allergies Coded Allergies: No Known Allergies (Unverified , 11/16/16) PER PATIENT AND DEION IN ASU Physical Exam Vital Signs Date Time Temp Pulse Resp B/P (MAP) Pulse Ox O2 Delivery O2 Flow Rate FiO2 11/16/16 18:25 114 37 96 BiPAP 60 11/16/16 18:25 114 96 60 11/16/16 18:23 115 40 133/101 96 BiPAP 11/16/16 17:55 117 11/16/16 17:49 117 135/90 96 Non-Rebreather 11/16/16 17:20 36.7 116 30 108/73 40 Room Air 11/16/16 17:20 40 Room Air Physical Exam GENERAL: Patient is sitting up in bed, ill appearing, dyspneic and appears confused. EYE EXAM: normal conjunctiva, PERRL and EOM's grossly intact OROPHARYNX: no exudate, no erythema, lips, buccal mucosa, and tongue normal and mucous membranes are moist NECK: supple, no nuchal rigidity, no adenopathy, non-tender LUNGS: Lung sounds are diminished bilaterally. Normal chest wall mechanics HEART: Tachycardic heart rate, regular rhythm, no murmurs, S1 normal and S2 normal ABDOMEN: abdomen soft, non-tender, normo-active bowel sounds, no masses, no rebound or guarding. BACK: Back is symmetrical on inspection and there is no deformity, no midline tenderness, no CVA tenderness. SKIN: no rashes and no bruising UPPER EXTREMITIES: upper extremities are grossly normal. LOWER EXTREMITIES: No pitting edema. NEURO EXAM: Patient is alert, able to state her name and location, but not oriented to year. She appears lethargic, moving all extremities, no focal deficits. Medical Decision & Procedures ER Provider Diagnostic Interpretation: Radiology results as stated below per my review and the radiologist's interpretation: CHEST ONE VIEW PORTABLE HISTORY: 56 years-old Female acute chest pain with shortness of breath. History of lung cancer. COMPARISON: Chest CT 09/03/2016, chest radiograph 12/19/2015 TECHNIQUE: Portable upright AP view of the chest. FINDINGS: Cardiac silhouette is enlarged. There is progression of the multifocal somewhat confluent appearance of pulmonary nodules throughout the lungs bilaterally with conglomerate opacities present within the left lung base. There is blunting of left costophrenic angle. No pneumothorax identified. The bones appear grossly intact. IMPRESSION: Progression of multifocal confluent appearance of bilateral multilobar distribution of pulmonary nodules. Focal airspace opacities within the left lung base with small left pleural effusion concerning for superimposed pneumonia. The above report was generated using voice recognition software. It may contain grammatical, syntax or spelling errors. Electronically signed by: Raul Coreas M.D. 11/16/2016 5:57 PM (CHEST FOR PE) ANGIO WITH CT DOSE: 598.21 mGy.cm HISTORY: 56 years-old Female presents with acute shortness of breath, hypoxia and confusion. History of lung cancer. TECHNIQUE: Multiple CTA images of the chest were obtained after the intravenous administration of 94 ml Optiray 320. Coronal and sagittal MIPS were obtained from the axial data set and were submitted for review. A dose lowering technique was utilized adhering to the principles of ALARA. COMPARISON: Chest CT 09/03/2016 FINDINGS: CTA: Heart is normal in size with trace pericardial effusion. Thoracic aorta is normal in course and caliber without dissection or aneurysm. The pulmonary arterial tree is well-opacified to the subsegmental branches, however evaluation is limited secondary to extensive respiratory motion. No focal pulmonary arterial tree filling defects are seen to suggest pulmonary embolus. There is reflux of contrast into the IVC, likely secondary to technique. CT CHEST: No dominant thyroid nodule is identified. No pathologic adenopathy about the chest is seen. There is a small left pleural effusion. Segmental airspace consolidation is present within the left lower lobe, notably involving the basilar segments. Additional scattered consolidative opacities are seen within the superior segment left lower lobe. This consolidation demonstrates nonuniform enhancement suggesting pneumonia. There is progression of diffuse nodular intralobular septal thickening with confluent pulmonary nodules and scattered groundglass opacities in a multilobar distribution bilaterally. There is a crazy paving pattern present within the left upper lobe. Central airways appear patent. 8 mm low attenuating lesion of the hepatic dome is unchanged from comparison. Nonspecific mild marek hepatis adenopathy is seen with lymph nodes measuring up to 1.0 cm. There is mild edema about the left flank subcutaneous tissues. Lytic lesions measuring up to 4 mm are seen within the mid vertebral bodies, notably at T6, T7 and T8, new from prior exam suspicious for metastasis no associated pathologic fracture. Similar-appearing lesion is seen at L1. IMPRESSION: 1. Limited study secondary to extensive respiratory motion. Within the limitations of the study, there is no acute aortic pathology or evidence of pulmonary thromboembolic disease. 2. Segmental airspace opacities of the left lower lobe with small left pleural effusion suggests pneumonia. 3. 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 Crazy paving pattern of disease involves the left upper lobe. 4. Interval development of scattered lytic lesions throughout the thoracic and imaged upper lumbar spine without pathologic fracture suggest bony metastasis. The above report was generated using voice recognition software. It may contain grammatical, syntax or spelling errors. Electronically signed by: Raul Coreas M.D. 11/16/2016 6:36 PM Laboratory Results 11/16/16 17:55 Red Blood Count 4.50, Mean Corpuscular Volume 73.8, Mean Corpuscular Hemoglobin 23.1, Mean Corpuscular Hemoglobin Concent 31.3, Mean Platelet Volume 9.3, Neutrophils (%) (Auto) 90.7, Lymphocytes (%) (Auto) 0.8, Monocytes (%) (Auto) 5.7, Eosinophils (%) (Auto) 0.5, Basophils (%) (Auto) 0.1, Neutrophils # (Auto) 17.34, Lymphocytes # (Auto) 0.16, Monocytes # (Auto) 1.09, Eosinophils # (Auto) 0.10, Basophils # (Auto) 0.01 11/16/16 17:55 Test 11/16/16 17:40 11/16/16 17:55 11/16/16 17:58 11/16/16 18:03 Venous Blood pH 7.43 (7.36-7.41) Venous Blood Partial Pressure CO2 45 mmHg (38.0-50.0) Venous Blood Partial Pressure O2 31 mmHg Venous Blood HCO3 29 mmol/L Venous Blood Oxygen Saturation < 60.0 % Venous Blood Base Excess 3.7 mEq/L White Blood Count 19.13 K/uL (4.8-10.8) Red Blood Count 4.50 M/uL (4.2-5.4) Hemoglobin 10.4 g/dL (12.0-16.0) Hematocrit 33.2 % (37-47) Mean Corpuscular Volume 73.8 fL (80-100) Mean Corpuscular Hemoglobin 23.1 pg (25-34) Mean Corpuscular Hemoglobin Concent 31.3 g/dl (32-36) Platelet Count 293 K/uL (130-400) Mean Platelet Volume 9.3 fL (7.4-10.4) Neutrophils (%) (Auto) 90.7 % Lymphocytes (%) (Auto) 0.8 % Monocytes (%) (Auto) 5.7 % Eosinophils (%) (Auto) 0.5 % Basophils (%) (Auto) 0.1 % Neutrophils # (Auto) 17.34 K/uL (1.4-6.5) Lymphocytes # (Auto) 0.16 K/uL (1.2-3.4) Monocytes # (Auto) 1.09 K/uL (0.11-0.59) Eosinophils # (Auto) 0.10 K/uL (0-0.5) Basophils # (Auto) 0.01 K/uL (0-0.2) RDW Standard Deviation 50.1 fL (36.4-46.3) RDW Coefficient of Variation 20.4 % (11.5-14.5) Immature Granulocyte % (Auto) 2.2 % Immature Granulocyte # (Auto) 0.43 K/uL (0.00-0.02) Nucleated RBC Absolute Count (auto) 0.10 K/uL (0-0) Nucleated Red Blood Cells % 0.5 % Hypersegmented Polys 1+ Anisocytosis PRESENT Spherocytes 1+ Prothrombin Time 12.0 SECONDS (9.0-12.0) Prothromb Time International Ratio 1.1 (0.9-1.1) Est Creatinine Clear Calc Drug Dose 136.6 ml/min Estimated GFR () 130.7 Estimated GFR (Non- 112.8 BUN/Creatinine Ratio 37.6 (10-20) Calcium Level 8.2 mg/dl (8.5-10.1) Magnesium Level 2.0 mg/dl (1.8-2.4) Total Bilirubin 0.5 mg/dl (0.2-1) Direct Bilirubin 0.2 mg/dl (0-0.2) Aspartate Amino Transf (AST/SGOT) 17 U/L (15-37) Alanine Aminotransferase (ALT/SGPT) 11 U/L (12-78) Alkaline Phosphatase 122 U/L (45-117) Total Creatine Kinase 59 U/L (26-192) Creatine Kinase MB 2.6 ng/ml (0.5-3.6) Creatine Kinase MB Ratio 4.4 (0-3.0) Troponin I 0.188 ng/ml (0-0.045) Total Protein 6.4 gm/dl (6.4-8.2) Albumin 2.1 gm/dl (3.4-5.0) Bedside Hemoglobin 12.6 g/dl (12.0-16.0) Bedside Hematocrit 37 % (37-47) Bedside Sodium 128 mEq/L (135-144) Bedside Potassium 4.3 mEq/L (3.3-5.0) Bedside Chloride 90 mEq/L (101-112) Bedside Total CO2 28 mEq/l (24-31) Anion Gap 16.0 mmol/L (16-25) Bedside Blood Urea Nitrogen 17 mg/dl (7-18) Bedside Creatinine 0.5 mg/dl (0.6-1.3) Bedside Glucose (other) 116 mg/dl (70-99) Bedside Ionized Calcium (Anival) 1.00 mmol/l (1.12-1.32) Bedside Lactic Acid Venous 1.61 mmol/L (0.90-1.70) Laboratory results per my review. Medications Administered Medications (Trade) Dose Ordered Sig/Jaziel Route Start Time Stop Time Status Last Admin Dose Admin Sodium Chloride 2,000 ml @ 999 mls/hr Q2H1M STAT IV 11/16/16 17:30 11/16/16 17:48 DC 11/16/16 17:46 999 MLS/HR Cefepime HCl 1000 mg/Dextrose 111.3 ml @ 200 mls/hr NOW STAT IV 11/16/16 18:02 11/16/16 18:35 DC 11/16/16 18:35 200 MLS/HR Sodium Chloride 1,000 ml @ 999 mls/hr Q1H1M STAT IV 11/16/16 18:02 11/16/16 19:02 DC 11/16/16 18:35 999 MLS/HR Levofloxacin (Levaquin / D5W) 750 mg NOW STAT IV 11/16/16 18:20 11/16/16 18:21 DC 11/16/16 18:35 750 MG ECG Indication: SOB/dyspnea Rate (beats per minute): 117 Rhythm: sinus tachycardia Findings: other (normal axis, poor baseline, R prime in septal leads) ED Course ED COURSE: Vital signs were reviewed and showed the patient is hypoxic. The patients medical record was reviewed The above diagnostic studies were performed and reviewed. ED treatments and interventions as stated above. 1726: The patient was evaluated in room B1. A complete history and physical examination was performed. 1730: NSS 2000 ml @ 999 mls/hr IV. 1802: NSS 1000 ml @ 999 mls/hr IV, Cefepime HCl 1000 mg/Dextrose 111.3 ml @ 20 mls/hr IV. 1820: Levaquin 750 mg IV. 1910: Upon reevaluation, the patient is resting comfortably. I discussed my findings with the patient and she and her family understand and agrees with the treatment plan. 1918: I discussed the patients case with Dr. Reilly, [facility] Hospitalist. The patient will be further evaluated. Based on the patients age, coexisting illnesses, exam and lab findings the decision to treat as an inpatient was made. The patient remained stable while under my care. The patient will be evaluated for further management. Medical Decision Differential diagnosis includes etiologies such as sepsis, UTI, pneumonia, metabolic, electrolyte abnormalities, cardiac sources, intracerebral event, toxicologic, neurologic, as well as others were entertained. Patient is a 56-year-old female with metastatic cancer that presents the ER altered short of breath. She is hypoxic with a pulse ox in the 50s. Chest x- ray supports bilateral infiltrates. CT of the chest shows worsening cancer along with pneumonia. Her respiratory rate remained in the 30s. She was on nonrebreather and transitioned to BiPAP. Pulse ox improved to 100% on BiPAP. ABG was fairly unremarkable. She had a marked leukocytosis of 19,000. Mild hyponatremia. Troponin was elevated at 0.18 as expected. UA did show UTI. She was covered with Levaquin and cefepime for pneumonia. Discussed case with internal medicine patient was admitted on BiPAP. Medication Reconcilliation Current Medication List: was personally reviewed by me Blood Pressure Screening Patient's blood pressure: Low blood pressure Low blood pressure was felt to be situational. Consults Time Called: 1914 Consulting Physician: Dr. Reilly, [facility] Hospitalist Returned Call: 1918 I discussed the patients case with Dr. Reilly [facility] Hospitalist. The patient will be further evaluated. Impression Primary Impression: Pneumonia Additional Impressions: Hypoxia Leukocytosis Altered mental status Acute respiratory failure with hypoxia and hypercapnia Critical Care I have personally spent 35 minutes of critical care time in the direct management of this patient. This includes bedside care, interpretation of diagnostic studies, and testing, discussion with consultants, patient, and family members, and other required patient management activities. This 35 minutes is in excess of all separately billable procedures. Scribe Attestation The scribe's documentation has been prepared under my direction and personally reviewed by me in its entirety. I confirm that the note above accurately reflects all work, treatment, procedures, and medical decision making performed by me. Departure Information Dispostion Being Evaluated By Hospitalist Referrals Reynold Marks M.D. (PCP) Patient Instructions My [facility] Problem Qualifiers Primary Impression: Pneumonia Pneumonia type: due to unspecified organism Laterality: unspecified laterality Lung location: unspecified part of lung Qualified Codes: J18.9 - Pneumonia, unspecified organism Additional Impressions: Leukocytosis Leukocytosis type: unspecified Qualified Codes: D72.829 - Elevated white blood cell count, unspecified Altered mental status Altered mental status type: unspecified Qualified Codes: R41.82 - Altered mental status, unspecified
[2016-11-16 23:28] VITALS: BP 122/80; PULSE 109; TEMP 36.6; O2SAT 95
[2016-11-16] MEDS: CHECK FENTANYL PATCH PLACEMENT SCH (23:29)
[2016-11-17] VITALS (12 sets, daily range): BP systolic 106–145; BP diastolic 55–100; PULSE 92–115; TEMP 36.4–36.8; O2SAT 92–97
[2016-11-17] MEDS: METHYLPREDNISOLONE IV 60 MG in SYRINGE 0 ML IV SCH ×3 (01:31→14:15)
[2016-11-17] MEDS: PIPERACILL/TAZOBAC IV 3.375 GM in DEXTROSE 5% 100ML 100 ML IV SCH ×3 (02:15→18:30)
[2016-11-17] MEDS: VANCOMYCIN INJ 1,250 MG in SODIUM CHLORIDE 0.9% 250ML 250 ML IV SCH ×2 (06:00→16:00)
[2016-11-17] MEDS: LEVOTHYROXINE 112 MCG TAB PO SCH (06:17)
[2016-11-17 06:20] LABS: BASO % 0.1 %; BASO ABS # 0.01 K/uL (0-0.2); EOS % 0.1 %; HEMATOCRIT 33.7 % (37-47); IG% 1.7 %; LYMPH % 1.1 %; MEAN CELL VOLUME 74.2 fL (80-100); MEAN CORPUSCULAR HEMOGLOBIN 23.3 pg (25-34); MEAN CORPUSCULAR HGB CONC 31.5 g/dl (32-36); MEAN PLATELET VOLUME 9.7 fL (7.4-10.4); MONO % 1.7 %; NEUT % 95.3 %; PLATELET COUNT 279 K/uL (130-400); RED BLOOD COUNT 4.54 M/uL (4.2-5.4); WHITE BLOOD COUNT 18.61 K/uL (4.8-10.8)
[2016-11-17 06:37] LABS: INR 1.1 (0.9-1.1); PARTIAL THROMBOPLASTIN RATIO 1.2; PROTHROMBIN TIME (PATIENT) 11.9 SECONDS (9.0-12.0)
[2016-11-17 06:43] LABS: BUN/CREATININE RATIO 24.3 (10-20); CALCIUM 8.2 mg/dl (8.5-10.1); CREATININE 0.42 mg/dl (0.60-1.20)
[2016-11-17 07:01] LABS: ANISOCYTOSIS PRESENT; COMPLETE YES; POLYCHROMASIA 1+
[2016-11-17] MEDS: CHECK FENTANYL PATCH PLACEMENT SCH ×3 (08:00→22:43)
[2016-11-17] MEDS: MULTIVITAMIN TAB PO SCH (08:13)
[2016-11-17] MEDS: AMLODIPINE BESYLATE 5 MG TAB PO SCH (08:14)
[2016-11-17] MEDS: CYANOCOBALAMIN 500 MCG TAB (VIT B-12) PO SCH (08:14)
[2016-11-17] MEDS: LORATADINE 10 MG TAB PO SCH (08:14)
[2016-11-17] MEDS ORDERED: OPTIRAY 320 IV PRN (09:00)
--- NOTE | 2016-11-17 09:03 | DIAGNOSTIC IMAGING REPORT ---
HEAD COMBO HISTORY: 56 years-old Female acute headache with history of lung cancer. COMPARISON: CT of the chest 11/16/2016, PET CT 08/26/2015 TECHNIQUE: Multiple axial CT images of the head were obtained both with and without the use of 93 mL Optiray 320. A dose lowering technique was used consistent with the principals of CHERI. FINDINGS: No acute intracranial hemorrhage, midline shift, abnormal extra-axial collections, hydrocephalus or territorial ischemia. Low attenuating 1.4 x 1.0 cm lesion seen within the subcortical white matter of the right frontal lobe is seen with minimal peripheral enhancement. Additionally, there is an 8 x 9 mm low attenuating lesion of the periventricular left frontal lobe with mild peripheral enhancement. Both of which are suspicious for possible metastasis. No additional abnormal enhancement is identified. No calvarial metastasis identified. Mastoid air cells, middle ear cavities and paranasal sinuses are clear. Soft tissues are unremarkable. Orbits are symmetric. IMPRESSION: 1. No acute intracranial hemorrhage or midline shift. 2. Low attenuating lesions with minimal peripheral enhancement involving the subcortical right frontal lobe and periventricular left frontal lobe are suspicious for metastasis. No significant surrounding vasogenic edema. Further evaluation with follow-up MRI of the brain with and without contrast is needed. The above report was generated using voice recognition software. It may contain grammatical, syntax or spelling errors. Electronically signed by: Raul Coreas M.D. 11/17/2016 9:02 AM Dictated Date/Time: 11/17/2016 8:52 AM
[2016-11-17] MEDS: LEVOFLOXACIN / D5W 500 MG in PREMIXED IN D5W 100 ML IV SCH (18:26)
--- NOTE | 2016-11-17 18:42 | Progress Note ---
Subjective Date of Service: Nov 17, 2016. Subjective I was called by nursing this morning due to the patient's confused state. This was despite having improved her oxygenation with high flow oxygen mask. A CT scan of the head was performed with the suggestion of metastatic disease which wasn't commented on earlier. It is known the patient has metastatic lung cancer with recent radiation to a bony met of her hip. The patient is currently brought in for treatment of possible pneumonia however the progression of her chest x-ray could simply be progression of her malignancy plus minus some postobstructive pneumonia. I spoke to the patient and found that she wished me to discuss this with her sister, Marylni warren, I called her on the phone we had a conversation and the entire family showed up in the afternoon to discuss end-of-life issues. There were some unclear answers however I believe the patient is leaning towards a DO NOT RESUSCITATE status. Her son who is present however did not feel that was the case and wished for further discussion which I believe is warranted. Problem List Medical Problems: (1) Altered mental status Status: Acute (2) Leukocytosis Status: Acute (3) Pneumonia Status: Acute Review of Systems Constitutional: + fever, + chills, + weakness, + problem reported (the patient' s confusion prevents accuracy of review of systems she over does remain short of breath) Objective Vital Signs Date Time Temp Pulse Resp B/P (MAP) Pulse Ox O2 Delivery O2 Flow Rate FiO2 11/17/16 07:32 36.7 98 18 121/81 (94) 95 11/17/16 04:00 BiPAP 11/17/16 03:32 36.6 104 20 120/81 (94) 97 BiPAP 11/17/16 01:52 115 95 60 11/16/16 23:59 BiPAP 11/16/16 23:28 36.6 109 24 122/80 (94) 95 BiPAP 60 11/16/16 20:28 36.9 117 30 164/101 91 BiPAP 60 11/16/16 20:22 117 94 60 11/16/16 19:36 114 32 145/88 96 BiPAP 11/16/16 19:28 113 36 170/98 98 BiPAP 11/16/16 18:25 114 37 96 BiPAP 60 11/16/16 18:25 114 96 60 11/16/16 18:23 115 40 133/101 96 BiPAP 11/16/16 17:55 117 11/16/16 17:49 117 135/90 96 Non-Rebreather 11/16/16 17:20 36.7 116 30 108/73 40 Room Air 11/16/16 17:20 40 Room Air Physical Exam General Appearance: WD/WN, + moderate distress Respiratory/Chest: + respiratory distress, + decreased breath sounds, + accessory muscle use, + rhonchi Cardiovascular: regular rate, rhythm, + tachycardia Abdomen: normal bowel sounds, non tender, soft Extremities: + pedal edema, + swelling Neurologic/Psychiatric: alert, + disoriented Laboratory Results Last 24 Hours Test 11/16/16 17:40 11/16/16 17:55 11/16/16 17:58 11/16/16 18:03 Venous Blood pH 7.43 Venous Blood Partial Pressure CO2 45 mmHg Venous Blood Partial Pressure O2 31 mmHg Venous Blood HCO3 29 mmol/L Venous Blood Oxygen Saturation < 60.0 % Venous Blood Base Excess 3.7 mEq/L White Blood Count 19.13 K/uL Red Blood Count 4.50 M/uL Hemoglobin 10.4 g/dL Hematocrit 33.2 % Mean Corpuscular Volume 73.8 fL Mean Corpuscular Hemoglobin 23.1 pg Mean Corpuscular Hemoglobin Concent 31.3 g/dl Platelet Count 293 K/uL Mean Platelet Volume 9.3 fL Neutrophils (%) (Auto) 90.7 % Lymphocytes (%) (Auto) 0.8 % Monocytes (%) (Auto) 5.7 % Eosinophils (%) (Auto) 0.5 % Basophils (%) (Auto) 0.1 % Neutrophils # (Auto) 17.34 K/uL Lymphocytes # (Auto) 0.16 K/uL Monocytes # (Auto) 1.09 K/uL Eosinophils # (Auto) 0.10 K/uL Basophils # (Auto) 0.01 K/uL RDW Standard Deviation 50.1 fL RDW Coefficient of Variation 20.4 % Immature Granulocyte % (Auto) 2.2 % Immature Granulocyte # (Auto) 0.43 K/uL Nucleated RBC Absolute Count (auto) 0.10 K/uL Nucleated Red Blood Cells % 0.5 % Hypersegmented Polys 1+ Anisocytosis PRESENT Spherocytes 1+ Prothrombin Time 12.0 SECONDS Prothromb Time International Ratio 1.1 Sodium Level 128 mmol/L Potassium Level 4.2 mmol/L Chloride Level 92 mmol/L Carbon Dioxide Level 29 mmol/L Anion Gap 7.0 mmol/L 16.0 mmol/L Blood Urea Nitrogen 17 mg/dl Creatinine 0.45 mg/dl Est Creatinine Clear Calc Drug Dose 136.6 ml/min Estimated GFR () 130.7 Estimated GFR (Non- 112.8 BUN/Creatinine Ratio 37.6 Random Glucose 112 mg/dl Calcium Level 8.2 mg/dl Magnesium Level 2.0 mg/dl Total Bilirubin 0.5 mg/dl Direct Bilirubin 0.2 mg/dl Aspartate Amino Transf (AST/SGOT) 17 U/L Alanine Aminotransferase (ALT/SGPT) 11 U/L Alkaline Phosphatase 122 U/L Total Creatine Kinase 59 U/L Creatine Kinase MB 2.6 ng/ml Creatine Kinase MB Ratio 4.4 Troponin I 0.188 ng/ml Total Protein 6.4 gm/dl Albumin 2.1 gm/dl Bedside Hemoglobin 12.6 g/dl Bedside Hematocrit 37 % Bedside Sodium 128 mEq/L Bedside Potassium 4.3 mEq/L Bedside Chloride 90 mEq/L Bedside Total CO2 28 mEq/l Bedside Blood Urea Nitrogen 17 mg/dl Bedside Creatinine 0.5 mg/dl Bedside Glucose (other) 116 mg/dl Bedside Ionized Calcium (Anival) 1.00 mmol/l Bedside Lactic Acid Venous 1.61 mmol/L Test 11/16/16 19:20 11/17/16 05:30 Urine Color YELLOW Urine Appearance CLEAR Urine pH 6.5 Urine Specific [place] > 1.045 Urine Protein TRACE Urine Glucose (UA) NEG Urine Ketones 2+ Urine Occult Blood NEG Urine Nitrite POS Urine Bilirubin NEG Urine Urobilinogen NEG Urine Leukocyte Esterase TRACE Urine WBC (Auto) 1-5 /hpf Urine RBC (Auto) 0-4 /hpf Urine Hyaline Casts (Auto) 1-5 /lpf Urine Epithelial Cells (Auto) 20-30 /lpf Urine Bacteria (Auto) 4+ White Blood Count 18.61 K/uL Red Blood Count 4.54 M/uL Hemoglobin 10.6 g/dL Hematocrit 33.7 % Mean Corpuscular Volume 74.2 fL Mean Corpuscular Hemoglobin 23.3 pg Mean Corpuscular Hemoglobin Concent 31.5 g/dl Platelet Count 279 K/uL Mean Platelet Volume 9.7 fL Neutrophils (%) (Auto) 95.3 % Lymphocytes (%) (Auto) 1.1 % Monocytes (%) (Auto) 1.7 % Eosinophils (%) (Auto) 0.1 % Basophils (%) (Auto) 0.1 % Neutrophils # (Auto) 17.77 K/uL Lymphocytes # (Auto) 0.20 K/uL Monocytes # (Auto) 0.31 K/uL Eosinophils # (Auto) 0.01 K/uL Basophils # (Auto) 0.01 K/uL RDW Standard Deviation 50.4 fL RDW Coefficient of Variation 20.8 % Immature Granulocyte % (Auto) 1.7 % Immature Granulocyte # (Auto) 0.31 K/uL Nucleated RBC Absolute Count (auto) 0.05 K/uL Nucleated Red Blood Cells % 0.3 % Polychromasia 1+ Anisocytosis PRESENT Prothrombin Time 11.9 SECONDS Prothromb Time International Ratio 1.1 Activated Partial Thromboplast Time 31.0 SECONDS Partial Thromboplastin Ratio 1.2 Sodium Level 133 mmol/L Potassium Level 4.0 mmol/L Chloride Level 98 mmol/L Carbon Dioxide Level 27 mmol/L Anion Gap 8.0 mmol/L Blood Urea Nitrogen 10 mg/dl Creatinine 0.42 mg/dl Est Creatinine Clear Calc Drug Dose 155.0 ml/min Estimated GFR () 133.7 Estimated GFR (Non- 115.4 BUN/Creatinine Ratio 24.3 Random Glucose 132 mg/dl Calcium Level 8.2 mg/dl Magnesium Level 2.0 mg/dl Total Bilirubin 0.5 mg/dl Direct Bilirubin 0.2 mg/dl Aspartate Amino Transf (AST/SGOT) 16 U/L Alanine Aminotransferase (ALT/SGPT) 11 U/L Alkaline Phosphatase 112 U/L Total Protein 6.2 gm/dl Albumin 2.0 gm/dl Assessment and Plan 56 F with metastatic lung cancer with profound hypoxia, pneumonia suspect gram negative or staph and marked confusion Newly found cerebral metastasis in association with significantly abnormal chest x-ray and CT suggests persistent progression of her disease, discussion with her oncologist regarding direction of care will need to be undertaken and possible palliative care consult. The CT scan of her head does not show significant vasogenic edema however eczema at the son will be employed in hopes of some improvement. Gram-negative or staph pneumonia will continue to be treated aggressively with vancomycin and levofloxacin and Zosyn Acute on chronic hypoxic respiratory failure, patient is requiring maximum oxygen flow via Oxy- mask and occasional BiPAP support, this concerns me as decompensation would lead towards intubation and at this point time it is unclear the patient's wishes she remains a full code DVT prevention based upon Lovenox
[2016-11-17] MEDS: DEXAMETHASONE INJ 4 MG in SYRINGE 0 ML IV SCH (20:58)
[2016-11-17] MEDS: ENOXAPARIN 40 MG/0.4 ML SYR SC SCH (20:59)
[2016-11-17] MEDS ORDERED: NURSING VERBAL MED ORDER ONE (22:45)
[2016-11-17] MEDS ORDERED: LORAZEPAM 0.5 MG TAB PO SCH (23:00)
[2016-11-18] VITALS (7 sets, daily range): BP systolic 105–124; BP diastolic 70–83; PULSE 75–89; TEMP 36.4–36.9; O2SAT 94–98
[2016-11-18] MEDS: DEXAMETHASONE INJ 4 MG in SYRINGE 0 ML IV SCH ×4 (01:58→19:53)
[2016-11-18] MEDS: PIPERACILL/TAZOBAC IV 3.375 GM in DEXTROSE 5% 100ML 100 ML IV SCH ×3 (01:58→17:57)
[2016-11-18] MEDS: VANCOMYCIN INJ 1,250 MG in SODIUM CHLORIDE 0.9% 250ML 250 ML IV SCH ×3 (01:58→20:03)
[2016-11-18] MEDS: LEVOTHYROXINE 112 MCG TAB PO SCH (06:41)
[2016-11-18 07:21] LABS: BASO % 0.1 %; BASO ABS # 0.01 K/uL (0-0.2); EOS % 0.1 %; HEMATOCRIT 33.3 % (37-47); IG% 1.1 %; LYMPH % 2.6 %; LYMPH ABS # 0.39 K/uL (1.2-3.4); MEAN CORPUSCULAR HEMOGLOBIN 23.3 pg (25-34); MEAN CORPUSCULAR HGB CONC 30.6 g/dl (32-36); MEAN PLATELET VOLUME 9.6 fL (7.4-10.4); MONO % 2.6 %; NEUT % 93.5 %; PLATELET COUNT 254 K/uL (130-400); RED BLOOD COUNT 4.38 M/uL (4.2-5.4); WHITE BLOOD COUNT 15.14 K/uL (4.8-10.8)
[2016-11-18 07:34] LABS: INR 1.1 (0.9-1.1); PARTIAL THROMBOPLASTIN RATIO 1.1
[2016-11-18] MEDS: CHECK FENTANYL PATCH PLACEMENT SCH ×2 (07:52→14:58)
[2016-11-18] MEDS: MULTIVITAMIN TAB PO SCH (07:59)
[2016-11-18] MEDS: LORATADINE 10 MG TAB PO SCH (07:59)
[2016-11-18 08:00] LABS: BUN/CREATININE RATIO 25.5 (10-20); CALCIUM 8.5 mg/dl (8.5-10.1); CREATININE 0.42 mg/dl (0.60-1.20); MAGNESIUM 2.3 mg/dl (1.8-2.4); POTASSIUM 3.6 mmol/L (3.5-5.1)
[2016-11-18] MEDS: AMLODIPINE BESYLATE 5 MG TAB PO SCH (08:00)
[2016-11-18] MEDS: CYANOCOBALAMIN 500 MCG TAB (VIT B-12) PO SCH (08:00)
[2016-11-18 08:24] LABS: ANISOCYTOSIS PRESENT; COMPLETE YES; HYPERSEGMENTED POLYS 2+; HYPOCHROMIA PRESENT
[2016-11-18] MEDS ORDERED: VANCOMYCIN TROUGH SCH (11:30)
--- NOTE | 2016-11-18 14:34 | Pharmacy Progress Note ---
Pharmacy Abx Dose Short Note Date of Service Nov 18, 2016. Assessment & Plan Assessment 56 year old female receiving vancomycin/zosyn/levofloxacin for treatment of pneumonia Day # 3 of antimicrobial therapy. Plan Vancomycin * Trough level of 14.6 mcg/mL is subtherapeutic * Change to 1250 mg IV every 8 hours * Goal trough level 15-20 mcg/mL * Trough ordered for 11/19 1929 Pharmacy will continue to follow and will adjust dose/frequency as necessary. Thank you.
[2016-11-18] MEDS: LEVOFLOXACIN / D5W 500 MG in PREMIXED IN D5W 100 ML IV SCH (16:48)
--- NOTE | 2016-11-18 17:38 | Progress Note ---
Subjective Date of Service: Nov 18, 2016. Subjective This patient has brightened a bit with the addition of dexamethasone perhaps reducing some vasogenic edema surrounding her cerebral metastasis, she's had increased production of sputum although her oxygen requirement remains significant ex We had a discussion with family in the room she is now confirm that she wishes to be a DO NOT RESUSCITATE if an urgent life and circumstance were presented self Problem List Medical Problems: (1) Altered mental status Status: Acute (2) Leukocytosis Status: Acute (3) Pneumonia Status: Acute Objective Vital Signs Date Time Temp Pulse Resp B/P (MAP) Pulse Ox O2 Delivery O2 Flow Rate FiO2 11/18/16 16:00 Oxymask 50 BiPAP 11/18/16 14:59 36.5 85 20 105/74 (84) 97 Mask 15.0 11/18/16 12:00 Oxymask 50 BiPAP 11/18/16 11:26 36.9 75 20 122/70 (87) 95 11/18/16 08:00 Oxymask 50 BiPAP 11/18/16 07:49 36.4 89 18 124/83 (97) 94 11/18/16 04:03 36.9 80 22 124/81 (95) 95 BiPAP 11/18/16 04:00 Oxymask 50 BiPAP 11/17/16 23:59 Oxymask 50 BiPAP 11/17/16 23:45 36.4 98 22 145/100 (115) 97 Oxymask 15.0 11/17/16 23:15 100 96 50 11/17/16 20:00 Oxymask 15.0 11/17/16 18:54 36.4 106 18 123/75 (91) 92 Mask 15.0 Physical Exam General Appearance: WD/WN, + mild distress Eyes: PERRL, EOMI Respiratory/Chest: chest non-tender, + decreased breath sounds, + rhonchi Cardiovascular: regular rate, rhythm, no murmur Abdomen: normal bowel sounds, non tender, soft Extremities: + pedal edema, + swelling (trace) Neurologic/Psychiatric: alert, oriented x 3 Laboratory Results Last 24 Hours Test 11/18/16 06:49 11/18/16 11:22 White Blood Count 15.14 K/uL Red Blood Count 4.38 M/uL Hemoglobin 10.2 g/dL Hematocrit 33.3 % Mean Corpuscular Volume 76.0 fL Mean Corpuscular Hemoglobin 23.3 pg Mean Corpuscular Hemoglobin Concent 30.6 g/dl Platelet Count 254 K/uL Mean Platelet Volume 9.6 fL Neutrophils (%) (Auto) 93.5 % Lymphocytes (%) (Auto) 2.6 % Monocytes (%) (Auto) 2.6 % Eosinophils (%) (Auto) 0.1 % Basophils (%) (Auto) 0.1 % Neutrophils # (Auto) 14.18 K/uL Lymphocytes # (Auto) 0.39 K/uL Monocytes # (Auto) 0.39 K/uL Eosinophils # (Auto) 0.01 K/uL Basophils # (Auto) 0.01 K/uL RDW Standard Deviation 52.6 fL RDW Coefficient of Variation 21.9 % Immature Granulocyte % (Auto) 1.1 % Immature Granulocyte # (Auto) 0.16 K/uL Hypersegmented Polys 2+ Hypochromasia PRESENT Anisocytosis PRESENT Prothrombin Time 12.0 SECONDS Prothromb Time International Ratio 1.1 Activated Partial Thromboplast Time 28.4 SECONDS Partial Thromboplastin Ratio 1.1 Sodium Level 140 mmol/L Potassium Level 3.6 mmol/L Chloride Level 103 mmol/L Carbon Dioxide Level 28 mmol/L Anion Gap 9.0 mmol/L Blood Urea Nitrogen 11 mg/dl Creatinine 0.42 mg/dl Est Creatinine Clear Calc Drug Dose 155.1 ml/min Estimated GFR () 133.7 Estimated GFR (Non- 115.4 BUN/Creatinine Ratio 25.5 Random Glucose 131 mg/dl Calcium Level 8.5 mg/dl Magnesium Level 2.3 mg/dl Total Bilirubin 0.4 mg/dl Direct Bilirubin 0.1 mg/dl Aspartate Amino Transf (AST/SGOT) 17 U/L Alanine Aminotransferase (ALT/SGPT) 12 U/L Alkaline Phosphatase 96 U/L Total Protein 6.1 gm/dl Albumin 2.2 gm/dl Vancomycin Level Trough 14.6 mcg/ml Assessment and Plan 56 F with metastatic lung cancer with profound hypoxia, pneumonia suspect gram negative or staph and marked confusion Newly found cerebral metastasis in association with significantly abnormal chest x-ray and CT suggests persistent progression of her disease, discussion with her oncologist regarding direction of care will need to be undertaken and possible palliative care consult. The CT scan of her head does not show significant vasogenic edema however the patient has had improvement with dexamethasone Gram-negative or staph pneumonia will continue to be treated aggressively with vancomycin and levofloxacin and Zosyn, copious secretions will employ a mucolytic's and chest physiotherapy Acute on chronic hypoxic respiratory failure, patient is requiring maximum oxygen flow via Oxy- mask and occasional BiPAP support, this continues to concern me as decompensation would lead towards intubation and at this point time the patient has decided to be a DO NOT RESUSCITATE Patient requests a sleeping aid will use Seroquel at bedtime DVT prevention based upon Lovenox
--- NOTE | 2016-11-18 18:02 | Medical Student: [facility] ---
Med Student Progress Note Date of Service Nov 18, 2016. 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 X-ray upon admission showed focal opacities with left pleural effusion suggesting superimposed pneumonia. She is currently on Vanco, Levoquin , and Piperacillin/Tazobactam for pneumonia. On 11/17, head CT show 2 lesions on R and L frontal lobes concerning for metastatic disease to the brain. She is currently on BiPAP 15 O2 flow and FiO2 50. Today, she states that she is feeling better. Pain is in left hip and b/l knees. Has cough with clear sputum. Per nurse, she had one dose of Ativan last night and developed hallucinations/ delusions. Eating is okay. Denies fever and chills. This afternoon, patient complained of sore mouth. Review of Systems Constitutional: No fever, No chills Respiratory: + cough, + sputum (clear) Cardiac: No chest pain Abdomen: No pain Musculoskeletal: + joint pain, + problem reported (left hip and b/l knees) Female : No dysuria Neurologic: + problem reported (hallucinations) Objective Vital Signs Date Time Temp Pulse Resp B/P (MAP) Pulse Ox O2 Delivery O2 Flow Rate FiO2 11/18/16 16:00 Oxymask 50 BiPAP 11/18/16 14:59 36.5 85 20 105/74 (84) 97 Mask 15.0 11/18/16 12:00 Oxymask 50 BiPAP 11/18/16 11:26 36.9 75 20 122/70 (87) 95 11/18/16 08:00 Oxymask 50 BiPAP 11/18/16 07:49 36.4 89 18 124/83 (97) 94 11/18/16 04:03 36.9 80 22 124/81 (95) 95 BiPAP 11/18/16 04:00 Oxymask 50 BiPAP 11/17/16 23:59 Oxymask 50 BiPAP 11/17/16 23:45 36.4 98 22 145/100 (115) 97 Oxymask 15.0 11/17/16 23:15 100 96 50 11/17/16 20:00 Oxymask 15.0 11/17/16 18:54 36.4 106 18 123/75 (91) 92 Mask 15.0 Physical Exam General Appearance: + mild distress, + obese Eyes: bilateral eyes normal inspection ENT: hearing grossly normal, + pertinent finding (canker sores) Neck: supple Respiratory/Chest: + respiratory distress, + decreased breath sounds, + accessory muscle use, + crackles (coarse throughout lungs), + wheezing (mild) Cardiovascular: regular rate, rhythm, no murmur Extremities: normal inspection Neurologic/Psychiatric: alert, normal mood/affect, + disoriented Laboratory Results Last 24 Hours Test 11/18/16 06:49 11/18/16 11:22 White Blood Count 15.14 K/uL Red Blood Count 4.38 M/uL Hemoglobin 10.2 g/dL Hematocrit 33.3 % Mean Corpuscular Volume 76.0 fL Mean Corpuscular Hemoglobin 23.3 pg Mean Corpuscular Hemoglobin Concent 30.6 g/dl Platelet Count 254 K/uL Mean Platelet Volume 9.6 fL Neutrophils (%) (Auto) 93.5 % Lymphocytes (%) (Auto) 2.6 % Monocytes (%) (Auto) 2.6 % Eosinophils (%) (Auto) 0.1 % Basophils (%) (Auto) 0.1 % Neutrophils # (Auto) 14.18 K/uL Lymphocytes # (Auto) 0.39 K/uL Monocytes # (Auto) 0.39 K/uL Eosinophils # (Auto) 0.01 K/uL Basophils # (Auto) 0.01 K/uL RDW Standard Deviation 52.6 fL RDW Coefficient of Variation 21.9 % Immature Granulocyte % (Auto) 1.1 % Immature Granulocyte # (Auto) 0.16 K/uL Hypersegmented Polys 2+ Hypochromasia PRESENT Anisocytosis PRESENT Prothrombin Time 12.0 SECONDS Prothromb Time International Ratio 1.1 Activated Partial Thromboplast Time 28.4 SECONDS Partial Thromboplastin Ratio 1.1 Sodium Level 140 mmol/L Potassium Level 3.6 mmol/L Chloride Level 103 mmol/L Carbon Dioxide Level 28 mmol/L Anion Gap 9.0 mmol/L Blood Urea Nitrogen 11 mg/dl Creatinine 0.42 mg/dl Est Creatinine Clear Calc Drug Dose 155.1 ml/min Estimated GFR () 133.7 Estimated GFR (Non- 115.4 BUN/Creatinine Ratio 25.5 Random Glucose 131 mg/dl Calcium Level 8.5 mg/dl Magnesium Level 2.3 mg/dl Total Bilirubin 0.4 mg/dl Direct Bilirubin 0.1 mg/dl Aspartate Amino Transf (AST/SGOT) 17 U/L Alanine Aminotransferase (ALT/SGPT) 12 U/L Alkaline Phosphatase 96 U/L Total Protein 6.1 gm/dl Albumin 2.2 gm/dl Vancomycin Level Trough 14.6 mcg/ml Medications Current Inpatient Medications Medications (Trade) Dose Ordered Sig/Jaziel Route Start Time Stop Time Status Last Admin Dose Admin Ioversol (Optiray 320) 125 ml UD PRN IV 11/16/16 18:30 11/20/16 18:29 Enoxaparin Sodium (Lovenox Inj) 40 mg Q24H SC 11/16/16 21:00 12/16/16 20:59 11/17/16 20:59 40 MG Acetaminophen (Tylenol Tab) 650 mg Q4H PRN PO 11/16/16 19:15 12/16/16 19:14 Nitroglycerin (Nitrostat Tab) 0.4 mg UD PRN SL 11/16/16 19:15 12/16/16 19:14 Amlodipine Besylate (Norvasc Tab) 5 mg DAILY PO 11/17/16 09:00 12/17/16 08:59 11/18/16 08:00 5 MG Baclofen (Lioresal Tab) 10 mg TID PRN PO 11/16/16 19:15 12/16/16 19:14 Cyanocobalamin (Vitamin B-12 Tab) 500 mcg DAILY PO 11/17/16 09:00 12/17/16 08:59 11/18/16 08:00 500 MCG Fentanyl (Duragesic Patch) 12 mcg Q3D@2100 TD 11/16/16 21:00 11/30/16 20:59 Folic Acid (Folvite Tab) 1 mg DAILY PO 11/17/16 09:00 12/17/16 08:59 11/18/16 07:59 1 MG Levothyroxine Sodium (Synthroid Tab) 112 mcg DAILYBB PO 11/17/16 06:00 12/17/16 05:59 11/18/16 06:41 112 MCG Loratadine (Claritin Tab) 10 mg DAILY PO 11/17/16 09:00 12/17/16 08:59 11/17/16 08:14 10 MG Multivitamins (Multivitamin Tab) 1 tab DAILY PO 11/17/16 09:00 12/17/16 08:59 11/18/16 07:59 1 TAB Oxycodone HCl (Roxicodone Immediate Rel Tab) 5 mg Q6H PRN PO 11/16/16 19:15 11/30/16 19:14 Tramadol HCl (Ultram Tab) 50 mg Q4H PRN PO 11/16/16 19:15 12/16/16 19:14 Piperacillin Sod/ Tazobactam Sod 3.375 gm/Dextrose 115 ml @ 28.75 mls/ hr Q8H IV 11/17/16 02:00 11/23/16 23:59 11/18/16 08:00 28.75 MLS/HR Levofloxacin 500 mg/Prmx 100 ml @ 100 mls/hr Q24H IV 11/17/16 18:00 11/23/16 23:59 11/18/16 16:48 100 MLS/HR Ondansetron HCl (Zofran Inj) 4 mg Q6H PRN IV 11/16/16 19:15 12/16/16 19:14 Vancomycin HCl (Consult) 1 ea UD PRN N/A 11/16/16 19:45 12/16/16 19:44 Piperacillin Sod/ Tazobactam Sod (Consult) 1 ea UD PRN N/A 11/16/16 19:45 12/16/16 19:44 Miscellaneous (Fentanyl Patch Remove & Waste) 1 ea Q3D@2059 N/A 11/16/16 20:59 12/16/16 20:58 Miscellaneous Information (Check Fentanyl Patch Placement) 1 ea QS N/A 11/17/16 00:00 12/17/16 00:00 Ioversol (Optiray 320) 125 ml UD PRN IV 11/17/16 09:00 11/21/16 08:59 Dexamethasone Sodium Phosphate 4 mg/Syringe 1 ml @ 1 mls/min Q6H IV 11/17/16 20:00 12/17/16 19:59 11/18/16 13:26 1 MLS/MIN Vancomycin HCl 1250 mg/Sodium Chloride 275 ml @ 125 mls/hr Q8@0400,1200,2000 IV 11/18/16 20:00 11/25/16 19:59 Quetiapine Fumarate (seroQUEL TAB) 25 mg HS PO 11/18/16 21:00 12/18/16 20:59 Assessment and Plan Assessment and Plan: This is 56 yo F with 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 X-ray upon admission showed focal opacities with left pleural effusion suggesting superimposed pneumonia. She is currently on Vanco, Levoquin, and Piperacillin/Tazobactam for pneumonia. On 11/17, head CT show 2 lesions on R and L frontal lobes concerning for metastatic disease to the brain. Metastatic Lung Adenocarcinoma - Head CT show 2 lesions on R and L frontal lobes concerning for metastatic disease to the brain. Not sure if the confusion is from the metastatic disease to the brain or pneumonia. - Will consult Oncology - Dr. Ruth Pneumonia - Continue Vancomycin, Levoquin, and Piperacillin/Tazobactam. - Continue with BiPAP. Will start dexamethasone. - Switch to Seroquel 25mg to help with sleep. Family meeting - End-of life decision was discussed and patient opted for DNR. Continued [facility] stay due to: other (BiPAP needs) Discharge planning: home with home health
[2016-11-18] MEDS: ENOXAPARIN 40 MG/0.4 ML SYR SC SCH (21:39)
[2016-11-18] MEDS: QUETIAPINE FUMARATE 25 MG TAB PO SCH (21:40)
[2016-11-18] MEDS: GUAIFENESIN 600 MG TABCR PO SCH (21:40)
[2016-11-19] VITALS (9 sets, daily range): BP systolic 114–142; BP diastolic 59–84; PULSE 69–90; TEMP 36.4–37; O2SAT 93–98
[2016-11-19] MEDS: DEXAMETHASONE INJ 4 MG in SYRINGE 0 ML IV SCH ×4 (01:55→20:15)
[2016-11-19] MEDS: PIPERACILL/TAZOBAC IV 3.375 GM in DEXTROSE 5% 100ML 100 ML IV SCH ×3 (01:57→20:15)
[2016-11-19] MEDS: VANCOMYCIN INJ 1,250 MG in SODIUM CHLORIDE 0.9% 250ML 250 ML IV SCH ×2 (04:27→13:05)
[2016-11-19] MEDS ORDERED: COUGH DROP (SUGAR FREE) LOZ 24 LOZ/1 BOX ONE (06:06)
[2016-11-19] MEDS: LEVOTHYROXINE 112 MCG TAB PO SCH (06:08)
[2016-11-19 06:13] LABS: HEMATOCRIT 33.9 % (37-47); IG% 1.2 %; LYMPH % 1.6 %; LYMPH ABS # 0.22 K/uL (1.2-3.4); MEAN CELL VOLUME 77.8 fL (80-100); MEAN CORPUSCULAR HEMOGLOBIN 23.4 pg (25-34); MEAN CORPUSCULAR HGB CONC 30.1 g/dl (32-36); MEAN PLATELET VOLUME 9.5 fL (7.4-10.4); MONO % 3.1 %; NEUT % 94.1 %; PLATELET COUNT 224 K/uL (130-400); RED BLOOD COUNT 4.36 M/uL (4.2-5.4)
[2016-11-19] MEDS ORDERED: COUGH DROP (SUGAR FREE) LOZ 24 LOZ/1 BOX PO PRN (06:15)
[2016-11-19 06:46] LABS: INR 1.1 (0.9-1.1); PARTIAL THROMBOPLASTIN RATIO 1.1; PROTHROMBIN TIME (PATIENT) 11.4 SECONDS (9.0-12.0)
[2016-11-19 06:49] LABS: ALT/SGPT 16 U/L (12-78); BLOOD UREA NITROGEN 12 mg/dl (7-18); BUN/CREATININE RATIO 25.4 (10-20); CALCIUM 8.1 mg/dl (8.5-10.1); CARBON DIOXIDE 29 mmol/L (21-32); CHLORIDE 105 mmol/L (98-107); CREATININE 0.46 mg/dl (0.60-1.20); GLUCOSE 136 mg/dl (70-99); MAGNESIUM 2.4 mg/dl (1.8-2.4); POTASSIUM 3.4 mmol/L (3.5-5.1); SODIUM 141 mmol/L (136-145)
[2016-11-19 06:52] LABS: ALKALINE PHOSPHATASE 86 U/L (45-117); AST/SGOT 18 U/L (15-37)
[2016-11-19 07:06] LABS: ANISOCYTOSIS PRESENT; COMPLETE YES; HYPERSEGMENTED POLYS 1+; POLYCHROMASIA 1+; TEAR DROP CELLS 1+
[2016-11-19] MEDS: GUAIFENESIN 600 MG TABCR PO SCH ×2 (08:54→21:11)
[2016-11-19] MEDS: MULTIVITAMIN TAB PO SCH (08:54)
[2016-11-19] MEDS: AMLODIPINE BESYLATE 5 MG TAB PO SCH (08:55)
[2016-11-19] MEDS: CYANOCOBALAMIN 500 MCG TAB (VIT B-12) PO SCH (08:55)
[2016-11-19] MEDS: CHECK FENTANYL PATCH PLACEMENT SCH ×4 (08:55→23:46)
[2016-11-19] MEDS: LORATADINE 10 MG TAB PO SCH (08:56)
[2016-11-19] MEDS ORDERED: BENZOCAINE 20% (ORAJEL) 11.9 GM TUBE MT PRN (09:00)
--- NOTE | 2016-11-19 11:57 | Palliative Care Consultation ---
Consultation Date of Consultation: Nov 19, 2016. Requesting Physician: Dr. Rock Attending Physician: Dr. Rock Reason for Consultation: Goals of care History of Present Illness 56 year old female patient with widespread lung cancer with mets to bone and now /newly, brain, as shown on CT scan. She is under the care of Dr. Ruth, last had radiation to left hip mets the week prior to coming to hospital. She was "doing well," until recently and now her CT of the chest shows progression of lung disease. Patient presented with SOB, found to have pneumonia. She has been hypoxic with increasing oxygen needs including 15L Oxy-mask and bi-pap on/off. She was not doing well past couple days. Palliative care consulted to assist with establishing goals of care. Met with patient in room 216. Awake, alert and completely oriented. She is in good spirits and feels well today. She is on zosyn and vancomycin, does report feeling slightly better with less SOB, more alertness, and less mucous. Was started on dexamethasone and has had improved mentation, more peppiness. Still has a cough, but no pain or discomfort. Has some diarrhea that started here in hospital, but patient is "not worried about it," "it's not severe." Arleen is not at all concerned about her new diagnosis, she understands the severity and is not in denial. However, she believes God will carry her through this. Her plan is to move in with her brother and [id number] because she knows she can' t care for herself alone any more. 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 She plans to meet her and his family next week (they are coming to see her in hospital) and she is going to break the news that she will no longer be living with her . Past Medical/Surgical History Medical History: Lung cancer, mets to bone and brain Social History Smoking Status: Never Smoker History of Alcohol Use: No Drug Use: none Marital Status: in relationship Occupation Status: unemployed Review of Systems Constitutional: + weakness ENT: No sore throat, No trouble swallowing Respiratory: + cough, + sputum (now white/yellow, not extremely thick), + wheezing (occasionally), + shortness of breath Cardiac: No chest pain, No edema Abdomen: + diarrhea, No pain, No nausea, No vomiting Female : No problem reported Psychiatric: No depression symptoms, No anxiety Allergies Coded Allergies: No Known Allergies (Unverified , 11/16/16) PER PATIENT AND DEION IN ASU Medications Current Inpatient Medications Medications (Trade) Dose Ordered Sig/Jaziel Route Start Time Stop Time Status Last Admin Dose Admin Ioversol (Optiray 320) 125 ml UD PRN IV 11/16/16 18:30 11/20/16 18:29 Enoxaparin Sodium (Lovenox Inj) 40 mg Q24H SC 11/16/16 21:00 12/16/16 20:59 11/18/16 21:39 40 MG Acetaminophen (Tylenol Tab) 650 mg Q4H PRN PO 11/16/16 19:15 12/16/16 19:14 Nitroglycerin (Nitrostat Tab) 0.4 mg UD PRN SL 11/16/16 19:15 12/16/16 19:14 Amlodipine Besylate (Norvasc Tab) 5 mg DAILY PO 11/17/16 09:00 12/17/16 08:59 11/19/16 08:55 5 MG Baclofen (Lioresal Tab) 10 mg TID PRN PO 11/16/16 19:15 12/16/16 19:14 Cyanocobalamin (Vitamin B-12 Tab) 500 mcg DAILY PO 11/17/16 09:00 12/17/16 08:59 11/19/16 08:55 500 MCG Fentanyl (Duragesic Patch) 12 mcg Q3D@2100 TD 11/16/16 21:00 11/30/16 20:59 Folic Acid (Folvite Tab) 1 mg DAILY PO 11/17/16 09:00 12/17/16 08:59 11/19/16 08:54 1 MG Levothyroxine Sodium (Synthroid Tab) 112 mcg DAILYBB PO 11/17/16 06:00 12/17/16 05:59 11/19/16 06:08 112 MCG Loratadine (Claritin Tab) 10 mg DAILY PO 11/17/16 09:00 12/17/16 08:59 11/19/16 08:56 10 MG Multivitamins (Multivitamin Tab) 1 tab DAILY PO 11/17/16 09:00 12/17/16 08:59 11/19/16 08:54 1 TAB Oxycodone HCl (Roxicodone Immediate Rel Tab) 5 mg Q6H PRN PO 11/16/16 19:15 11/30/16 19:14 Tramadol HCl (Ultram Tab) 50 mg Q4H PRN PO 11/16/16 19:15 12/16/16 19:14 Piperacillin Sod/ Tazobactam Sod 3.375 gm/Dextrose 115 ml @ 28.75 mls/ hr Q8H IV 11/17/16 02:00 11/23/16 23:59 11/19/16 08:55 28.75 MLS/HR Levofloxacin 500 mg/Prmx 100 ml @ 100 mls/hr Q24H IV 11/17/16 18:00 11/23/16 23:59 11/18/16 16:48 100 MLS/HR Ondansetron HCl (Zofran Inj) 4 mg Q6H PRN IV 11/16/16 19:15 12/16/16 19:14 Vancomycin HCl (Consult) 1 ea UD PRN N/A 11/16/16 19:45 12/16/16 19:44 Piperacillin Sod/ Tazobactam Sod (Consult) 1 ea UD PRN N/A 11/16/16 19:45 12/16/16 19:44 Miscellaneous (Fentanyl Patch Remove & Waste) 1 ea Q3D@9 N/A 11/16/16 20:59 12/16/16 20:58 Miscellaneous Information (Check Fentanyl Patch Placement) 1 ea QS N/A 11/17/16 00:00 12/17/16 00:00 Ioversol (Optiray 320) 125 ml UD PRN IV 11/17/16 09:00 11/21/16 08:59 Dexamethasone Sodium Phosphate 4 mg/Syringe 1 ml @ 1 mls/min Q6H IV 11/17/16 20:00 12/17/16 19:59 11/19/16 08:55 1 MLS/MIN Vancomycin HCl 1250 mg/Sodium Chloride 275 ml @ 125 mls/hr Q8@0400,1200,2000 IV 11/18/16 20:00 11/25/16 19:59 11/19/16 04:27 125 MLS/HR Quetiapine Fumarate (seroQUEL TAB) 25 mg HS PO 11/18/16 21:00 12/18/16 20:59 11/18/16 21:40 25 MG Guaifenesin (Mucinex Contr Rel Tab) 1,200 mg Q12 PO 11/18/16 21:00 12/18/16 20:59 11/19/16 08:54 1,200 MG Menthol (Nice Tamara) 1 tamara PRN PRN PO 11/19/16 06:15 12/19/16 06:14 Benzocaine (Orajel 2% Oral Gel) 1 appln Q4H PRN MT 11/19/16 09:00 12/19/16 08:59 Physical Exam Date Time Temp Pulse Resp B/P (MAP) Pulse Ox O2 Delivery O2 Flow Rate FiO2 11/19/16 11:28 37.0 72 18 131/65 (87) 96 11/19/16 08:00 Oxymask 15.0 11/19/16 07:54 36.8 69 18 127/59 (81) 97 11/19/16 04:00 Oxymask 15.0 BiPAP 11/19/16 03:45 36.4 77 18 114/74 (87) 98 Oxymask 15.0 11/18/16 23:59 Oxymask 15.0 BiPAP 11/18/16 23:42 36.4 80 24 111/73 (86) 98 BiPAP 11/18/16 22:33 85 95 50 11/18/16 20:00 Oxymask 11/18/16 19:42 36.6 85 18 118/77 (91) 97 Mask 15.0 11/18/16 16:00 Oxymask 50 BiPAP 11/18/16 14:59 36.5 85 20 105/74 (84) 97 Mask 15.0 11/18/16 12:00 Oxymask 50 BiPAP General Appearance: no apparent distress ENT: hearing grossly normal Neck: supple, no JVD Respiratory: no respiratory distress, no accessory muscle use, + crackles (LLL> RLL), + wheezing (expiratory in RLL), + pertinent finding (speaks in short- sentences. BLANDON) Cardiovascular: regular rate, rhythm, no edema, + normal peripheral pulses Abdomen: normal bowel sounds, non tender, soft Neurologic/Psychiatric: alert, normal mood/affect, oriented x 3 Laboratory Results Last 24 Hours Test 11/19/16 05:44 White Blood Count 13.60 K/uL Red Blood Count 4.36 M/uL Hemoglobin 10.2 g/dL Hematocrit 33.9 % Mean Corpuscular Volume 77.8 fL Mean Corpuscular Hemoglobin 23.4 pg Mean Corpuscular Hemoglobin Concent 30.1 g/dl Platelet Count 224 K/uL Mean Platelet Volume 9.5 fL Neutrophils (%) (Auto) 94.1 % Lymphocytes (%) (Auto) 1.6 % Monocytes (%) (Auto) 3.1 % Eosinophils (%) (Auto) 0.0 % Basophils (%) (Auto) 0.0 % Neutrophils # (Auto) 12.80 K/uL Lymphocytes # (Auto) 0.22 K/uL Monocytes # (Auto) 0.42 K/uL Eosinophils # (Auto) 0.00 K/uL Basophils # (Auto) 0.00 K/uL RDW Standard Deviation 54.8 fL RDW Coefficient of Variation 22.7 % Immature Granulocyte % (Auto) 1.2 % Immature Granulocyte # (Auto) 0.16 K/uL Nucleated RBC Absolute Count (auto) 0.03 K/uL Nucleated Red Blood Cells % 0.2 % Hypersegmented Polys 1+ Polychromasia 1+ Anisocytosis PRESENT Tear Drop Cells 1+ Prothrombin Time 11.4 SECONDS Prothromb Time International Ratio 1.1 Activated Partial Thromboplast Time 27.5 SECONDS Partial Thromboplastin Ratio 1.1 Sodium Level 141 mmol/L Potassium Level 3.4 mmol/L Chloride Level 105 mmol/L Carbon Dioxide Level 29 mmol/L Anion Gap 7.0 mmol/L Blood Urea Nitrogen 12 mg/dl Creatinine 0.46 mg/dl Est Creatinine Clear Calc Drug Dose 141.7 ml/min Estimated GFR () 129.8 Estimated GFR (Non- 112.0 BUN/Creatinine Ratio 25.4 Random Glucose 136 mg/dl Calcium Level 8.1 mg/dl Magnesium Level 2.4 mg/dl Total Bilirubin 0.3 mg/dl Direct Bilirubin < 0.1 mg/dl Aspartate Amino Transf (AST/SGOT) 18 U/L Alanine Aminotransferase (ALT/SGPT) 16 U/L Alkaline Phosphatase 86 U/L Total Protein 5.7 gm/dl Albumin 2.1 gm/dl Assessment & Plan Palliative Performance Scale: 70 % Problem list: Weakness Diarrhea- patient states it is not bothersome to her Cough SOB/BLANDON Lung cancer, mets to bone and brain Goals of care (Z51.5) Palliative care recs: -Patient is DNR per previous conversation. -Goal is to move in with her brother and [id number]. Wants some home health/ therapy. May need PT/OT consults here. -Goal is to pursue chemotherapy. Patient has strong bib that she is not dying at this time and has a long road ahead of her. She is not in denial about her condition, but says that God will carry her through this. -Will likely need oxygen in the home. Cannot go home on 15L Oxy-mask which I explained to patient and she understands. -Continue current treatment for pneumonia. Continue dexamethasone. -Seroquel made patient groggy and foggy-headed today. She does not want to take this again. -Has no pain. Does not want any medication for the SOB as she doesn't want to be sedated/tired. She does have Roxicodone ordered if needed. -Could add nebs Q6h PRN SOB or wheezing. -Patient will likely be here through the weekend and I will be more than happy to see her next week. Thank you kindly for consulting me on this very pleasant patient.
--- NOTE | 2016-11-19 15:30 | Medical Student: [facility] ---
Med Student Progress Note Date of Service Nov 19, 2016. Subjective Pt evaluation today including: conversation w/ patient, physical exam, chart review, lab review, review of studies, review of inpatient medication list Pain: none PO Intake: normal Voiding: no voiding problems This is 56 yo F with history of metastatic lung adenocarcinoma to bone presented with SOB on November 16 shortly after 10 treatments of radiation and chemotherapy. Upon admisison, she was found to have pneumonia and lung mets to her brain. Today she felt groggy the whole morning and wished not to take Seroquel at night again. Sleeping and eating okay. Some cough with clear sputum. She is currently on 15L O2 using mask. BiPAP on/off. Dr. Rock tried to lower her O2 and she was doing fine at 5L O2 (O2 Sat 95). Still have sore mouth. Review of Systems Constitutional: No fever Respiratory: + cough, + sputum (clear) Cardiac: No chest pain Abdomen: No nausea, No vomiting Female : No dysuria Objective Vital Signs Date Time Temp Pulse Resp B/P (MAP) Pulse Ox O2 Delivery O2 Flow Rate FiO2 11/19/16 12:00 Oxymask 15.0 11/19/16 11:28 37.0 74 18 142/66 (91) 96 11/19/16 08:00 Oxymask 15.0 11/19/16 07:54 36.8 69 18 127/59 (81) 97 11/19/16 04:00 Oxymask 15.0 BiPAP 11/19/16 03:45 36.4 77 18 114/74 (87) 98 Oxymask 15.0 11/18/16 23:59 Oxymask 15.0 BiPAP 11/18/16 23:42 36.4 80 24 111/73 (86) 98 BiPAP 11/18/16 22:33 85 95 50 11/18/16 20:00 Oxymask 11/18/16 19:42 36.6 85 18 118/77 (91) 97 Mask 15.0 11/18/16 16:00 Oxymask 50 BiPAP 11/18/16 14:59 36.5 85 20 105/74 (84) 97 Mask 15.0 Physical Exam General Appearance: no apparent distress, + obese Eyes: bilateral eyes normal inspection ENT: hearing grossly normal Neck: supple Respiratory/Chest: + decreased breath sounds, + rales (coarse), + wheezing ( some) Cardiovascular: no murmur, + tachycardia Neurologic/Psychiatric: alert, normal mood/affect, oriented x 3 Laboratory Results Last 24 Hours Test 11/19/16 05:44 White Blood Count 13.60 K/uL Red Blood Count 4.36 M/uL Hemoglobin 10.2 g/dL Hematocrit 33.9 % Mean Corpuscular Volume 77.8 fL Mean Corpuscular Hemoglobin 23.4 pg Mean Corpuscular Hemoglobin Concent 30.1 g/dl Platelet Count 224 K/uL Mean Platelet Volume 9.5 fL Neutrophils (%) (Auto) 94.1 % Lymphocytes (%) (Auto) 1.6 % Monocytes (%) (Auto) 3.1 % Eosinophils (%) (Auto) 0.0 % Basophils (%) (Auto) 0.0 % Neutrophils # (Auto) 12.80 K/uL Lymphocytes # (Auto) 0.22 K/uL Monocytes # (Auto) 0.42 K/uL Eosinophils # (Auto) 0.00 K/uL Basophils # (Auto) 0.00 K/uL RDW Standard Deviation 54.8 fL RDW Coefficient of Variation 22.7 % Immature Granulocyte % (Auto) 1.2 % Immature Granulocyte # (Auto) 0.16 K/uL Nucleated RBC Absolute Count (auto) 0.03 K/uL Nucleated Red Blood Cells % 0.2 % Hypersegmented Polys 1+ Polychromasia 1+ Anisocytosis PRESENT Tear Drop Cells 1+ Prothrombin Time 11.4 SECONDS Prothromb Time International Ratio 1.1 Activated Partial Thromboplast Time 27.5 SECONDS Partial Thromboplastin Ratio 1.1 Sodium Level 141 mmol/L Potassium Level 3.4 mmol/L Chloride Level 105 mmol/L Carbon Dioxide Level 29 mmol/L Anion Gap 7.0 mmol/L Blood Urea Nitrogen 12 mg/dl Creatinine 0.46 mg/dl Est Creatinine Clear Calc Drug Dose 141.7 ml/min Estimated GFR () 129.8 Estimated GFR (Non- 112.0 BUN/Creatinine Ratio 25.4 Random Glucose 136 mg/dl Calcium Level 8.1 mg/dl Magnesium Level 2.4 mg/dl Total Bilirubin 0.3 mg/dl Direct Bilirubin < 0.1 mg/dl Aspartate Amino Transf (AST/SGOT) 18 U/L Alanine Aminotransferase (ALT/SGPT) 16 U/L Alkaline Phosphatase 86 U/L Total Protein 5.7 gm/dl Albumin 2.1 gm/dl Medications Current Inpatient Medications Medications (Trade) Dose Ordered Sig/Jaziel Route Start Time Stop Time Status Last Admin Dose Admin Ioversol (Optiray 320) 125 ml UD PRN IV 11/16/16 18:30 11/20/16 18:29 Enoxaparin Sodium (Lovenox Inj) 40 mg Q24H SC 11/16/16 21:00 12/16/16 20:59 11/18/16 21:39 40 MG Acetaminophen (Tylenol Tab) 650 mg Q4H PRN PO 11/16/16 19:15 12/16/16 19:14 Nitroglycerin (Nitrostat Tab) 0.4 mg UD PRN SL 11/16/16 19:15 12/16/16 19:14 Amlodipine Besylate (Norvasc Tab) 5 mg DAILY PO 11/17/16 09:00 12/17/16 08:59 11/19/16 08:55 5 MG Baclofen (Lioresal Tab) 10 mg TID PRN PO 11/16/16 19:15 12/16/16 19:14 Cyanocobalamin (Vitamin B-12 Tab) 500 mcg DAILY PO 11/17/16 09:00 12/17/16 08:59 11/19/16 08:55 500 MCG Fentanyl (Duragesic Patch) 12 mcg Q3D@2100 TD 11/16/16 21:00 11/30/16 20:59 Folic Acid (Folvite Tab) 1 mg DAILY PO 11/17/16 09:00 12/17/16 08:59 11/19/16 08:54 1 MG Levothyroxine Sodium (Synthroid Tab) 112 mcg DAILYBB PO 11/17/16 06:00 12/17/16 05:59 11/19/16 06:08 112 MCG Loratadine (Claritin Tab) 10 mg DAILY PO 11/17/16 09:00 12/17/16 08:59 11/19/16 08:56 10 MG Multivitamins (Multivitamin Tab) 1 tab DAILY PO 11/17/16 09:00 12/17/16 08:59 11/19/16 08:54 1 TAB Oxycodone HCl (Roxicodone Immediate Rel Tab) 5 mg Q6H PRN PO 11/16/16 19:15 11/30/16 19:14 Tramadol HCl (Ultram Tab) 50 mg Q4H PRN PO 11/16/16 19:15 12/16/16 19:14 Piperacillin Sod/ Tazobactam Sod 3.375 gm/Dextrose 115 ml @ 28.75 mls/ hr Q8H IV 11/17/16 02:00 11/23/16 23:59 11/19/16 08:55 28.75 MLS/HR Levofloxacin 500 mg/Prmx 100 ml @ 100 mls/hr Q24H IV 11/17/16 18:00 11/23/16 23:59 11/18/16 16:48 100 MLS/HR Ondansetron HCl (Zofran Inj) 4 mg Q6H PRN IV 11/16/16 19:15 12/16/16 19:14 Vancomycin HCl (Consult) 1 ea UD PRN N/A 11/16/16 19:45 12/16/16 19:44 Piperacillin Sod/ Tazobactam Sod (Consult) 1 ea UD PRN N/A 11/16/16 19:45 12/16/16 19:44 Miscellaneous (Fentanyl Patch Remove & Waste) 1 ea Q3D@2059 N/A 11/16/16 20:59 12/16/16 20:58 Miscellaneous Information (Check Fentanyl Patch Placement) 1 ea QS N/A 11/17/16 00:00 12/17/16 00:00 Ioversol (Optiray 320) 125 ml UD PRN IV 11/17/16 09:00 11/21/16 08:59 Dexamethasone Sodium Phosphate 4 mg/Syringe 1 ml @ 1 mls/min Q6H IV 11/17/16 20:00 12/17/16 19:59 11/19/16 13:06 1 MLS/MIN Vancomycin HCl 1250 mg/Sodium Chloride 275 ml @ 125 mls/hr Q8@0400,1200,2000 IV 11/18/16 20:00 11/25/16 19:59 11/19/16 13:05 125 MLS/HR Quetiapine Fumarate (seroQUEL TAB) 25 mg HS PO 11/18/16 21:00 12/18/16 20:59 11/18/16 21:40 25 MG Guaifenesin (Mucinex Contr Rel Tab) 1,200 mg Q12 PO 11/18/16 21:00 12/18/16 20:59 11/19/16 08:54 1,200 MG Menthol (Nice Tamara) 1 tamara PRN PRN PO 11/19/16 06:15 12/19/16 06:14 Benzocaine (Orajel 2% Oral Gel) 1 appln Q4H PRN MT 11/19/16 09:00 12/19/16 08:59 Assessment and Plan Assessment and Plan: This is 56 yo F with 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 X-ray upon admission showed focal opacities with left pleural effusion suggesting superimposed pneumonia. She is currently on Vanco, Levoquin, and Piperacillin/Tazobactam for pneumonia. On 11/17, head CT show 2 lesions on R and L frontal lobes concerning for metastatic disease to the brain. Metastatic Lung Adenocarcinoma - Head CT show 2 lesions on R and L frontal lobes concerning for metastatic disease to the brain. Not sure if the confusion is from the metastatic disease to the brain or pneumonia. - Will consult Oncology - Dr. Ruth - 02 lower to 5L today with O2 stat stable around 94. Continue monitor. - Continue BiPAP at night. Pneumonia - Continue Vancomycin, Levoquin, and Piperacillin/Tazobactam. - Continue Dexamethasone - Stop Seroquel this evening per patient request. Continued [facility] stay due to: other (O2 needs) Discharge planning: home with home health
--- NOTE | 2016-11-19 16:48 | Progress Note ---
Subjective Date of Service: Nov 19, 2016. Subjective Patient continues to improve she did have a hangover effect from the Seroquel she is able to titrate oxygen down somewhat today she states that in the past when she was first diagnosed she was on 3 L nasal cannula at home. She has no other new complaints or problems Problem List Medical Problems: (1) Altered mental status Status: Acute (2) Leukocytosis Status: Acute (3) Pneumonia Status: Acute Review of Systems ROS: well nourished well developed No double vision blurry vision No problems with speech or swallowing No palpitations, chest pain or pressure Patient remains with cough productive of sputum dyspnea on exertion and occasional paroxysms of dyspnea No abdominal pain nausea vomiting diarrhea changes in appetite or weight No burning urine urine frequency or changes in color No focal joint pain or muscle pain No skin rashes or oral lesions No unusual bruising or bleeding No focused back pain or numbness or loss of strength No changes in memory or confusion Objective Vital Signs Date Time Temp Pulse Resp B/P (MAP) Pulse Ox O2 Delivery O2 Flow Rate FiO2 11/19/16 15:13 36.7 82 20 133/84 (100) 95 Nasal Cannula 5.0 11/19/16 12:00 Oxymask 15.0 11/19/16 11:28 37.0 74 18 142/66 (91) 96 11/19/16 08:00 Oxymask 15.0 11/19/16 07:54 36.8 69 18 127/59 (81) 97 11/19/16 04:00 Oxymask 15.0 BiPAP 11/19/16 03:45 36.4 77 18 114/74 (87) 98 Oxymask 15.0 11/18/16 23:59 Oxymask 15.0 BiPAP 11/18/16 23:42 36.4 80 24 111/73 (86) 98 BiPAP 11/18/16 22:33 85 95 50 11/18/16 20:00 Oxymask 11/18/16 19:42 36.6 85 18 118/77 (91) 97 Mask 15.0 Physical Exam General Appearance: WD/WN, + moderate distress (respiratory) Eyes: PERRL, EOMI Respiratory/Chest: chest non-tender, + decreased breath sounds, + accessory muscle use, + rhonchi Cardiovascular: regular rate, rhythm, no murmur Abdomen: normal bowel sounds, non tender, soft Extremities: + pedal edema, + swelling Neurologic/Psychiatric: alert, oriented x 3 Laboratory Results Last 24 Hours Test 11/19/16 05:44 White Blood Count 13.60 K/uL Red Blood Count 4.36 M/uL Hemoglobin 10.2 g/dL Hematocrit 33.9 % Mean Corpuscular Volume 77.8 fL Mean Corpuscular Hemoglobin 23.4 pg Mean Corpuscular Hemoglobin Concent 30.1 g/dl Platelet Count 224 K/uL Mean Platelet Volume 9.5 fL Neutrophils (%) (Auto) 94.1 % Lymphocytes (%) (Auto) 1.6 % Monocytes (%) (Auto) 3.1 % Eosinophils (%) (Auto) 0.0 % Basophils (%) (Auto) 0.0 % Neutrophils # (Auto) 12.80 K/uL Lymphocytes # (Auto) 0.22 K/uL Monocytes # (Auto) 0.42 K/uL Eosinophils # (Auto) 0.00 K/uL Basophils # (Auto) 0.00 K/uL RDW Standard Deviation 54.8 fL RDW Coefficient of Variation 22.7 % Immature Granulocyte % (Auto) 1.2 % Immature Granulocyte # (Auto) 0.16 K/uL Nucleated RBC Absolute Count (auto) 0.03 K/uL Nucleated Red Blood Cells % 0.2 % Hypersegmented Polys 1+ Polychromasia 1+ Anisocytosis PRESENT Tear Drop Cells 1+ Prothrombin Time 11.4 SECONDS Prothromb Time International Ratio 1.1 Activated Partial Thromboplast Time 27.5 SECONDS Partial Thromboplastin Ratio 1.1 Sodium Level 141 mmol/L Potassium Level 3.4 mmol/L Chloride Level 105 mmol/L Carbon Dioxide Level 29 mmol/L Anion Gap 7.0 mmol/L Blood Urea Nitrogen 12 mg/dl Creatinine 0.46 mg/dl Est Creatinine Clear Calc Drug Dose 141.7 ml/min Estimated GFR () 129.8 Estimated GFR (Non- 112.0 BUN/Creatinine Ratio 25.4 Random Glucose 136 mg/dl Calcium Level 8.1 mg/dl Magnesium Level 2.4 mg/dl Total Bilirubin 0.3 mg/dl Direct Bilirubin < 0.1 mg/dl Aspartate Amino Transf (AST/SGOT) 18 U/L Alanine Aminotransferase (ALT/SGPT) 16 U/L Alkaline Phosphatase 86 U/L Total Protein 5.7 gm/dl Albumin 2.1 gm/dl Assessment and Plan 56 F with metastatic lung cancer with profound hypoxia, pneumonia suspect gram negative or staph and marked confusion which has improved with steroid treatment of brain lesions Newly found cerebral metastasis in association with significantly abnormal chest x-ray and CT suggests persistent progression of her disease, discussion with her oncologist regarding direction of care will need to be undertaken and possible palliative care consult. The CT scan of her head does not show significant vasogenic edema however the patient has had improvement with dexamethasone will continue and eventually transitioned to oral Gram-negative or staph pneumonia will continue to be treated aggressively with vancomycin and levofloxacin and Zosyn, copious secretions will employ a mucolytic's and chest physiotherapy, we'll de-escalate to Levaquin and Zosyn on 11/19 Acute on chronic hypoxic respiratory failure, patient is requiring maximum oxygen flow via Oxy- mask and occasional BiPAP support, she's been able to be titrated on a lower level of nasal cannula oxygen 11/19 the patient has decided to be a DO NOT RESUSCITATE DVT prevention based upon Lovenox Continued [facility] stay due to: other (O2 needs) Discharge planning: home with home health
[2016-11-19] MEDS: LEVOFLOXACIN / D5W 500 MG in PREMIXED IN D5W 100 ML IV SCH (18:15)
[2016-11-19] MEDS ORDERED: VANCOMYCIN TROUGH SCH (19:30)
[2016-11-19] MEDS: QUETIAPINE FUMARATE 25 MG TAB PO SCH (21:00)
[2016-11-19] MEDS: FENTANYL 12 MCG/HR TDSY TD SCH (21:00)
[2016-11-19] MEDS: FENTANYL PATCH REMOVE & WASTE SCH (21:06)
[2016-11-19] MEDS: ENOXAPARIN 40 MG/0.4 ML SYR SC SCH (21:12)
[2016-11-20] VITALS (7 sets, daily range): BP systolic 112–142; BP diastolic 72–84; PULSE 79–86; TEMP 36.7–37.1; O2SAT 92–100
[2016-11-20] MEDS: DEXAMETHASONE INJ 4 MG in SYRINGE 0 ML IV SCH ×2 (02:00→08:34)
[2016-11-20] MEDS: PIPERACILL/TAZOBAC IV 3.375 GM in DEXTROSE 5% 100ML 100 ML IV SCH ×3 (02:00→19:03)
[2016-11-20] MEDS: LEVOTHYROXINE 112 MCG TAB PO SCH (05:57)
[2016-11-20] MEDS: LORATADINE 10 MG TAB PO SCH ×2 (08:00→08:27)
[2016-11-20] MEDS: CHECK FENTANYL PATCH PLACEMENT SCH ×3 (08:00→23:47)
[2016-11-20 08:08] LABS: HEMATOCRIT 34.4 % (37-47); MEAN CELL VOLUME 76.8 fL (80-100); MEAN CORPUSCULAR HEMOGLOBIN 23.9 pg (25-34); MEAN CORPUSCULAR HGB CONC 31.1 g/dl (32-36); MEAN PLATELET VOLUME 8.9 fL (7.4-10.4); PLATELET COUNT 248 K/uL (130-400); RED BLOOD COUNT 4.48 M/uL (4.2-5.4); WHITE BLOOD COUNT 16.37 K/uL (4.8-10.8)
[2016-11-20 08:24] LABS: CALCIUM 8.2 mg/dl (8.5-10.1); CREATININE 0.42 mg/dl (0.60-1.20); POTASSIUM 2.9 mmol/L (3.5-5.1)
[2016-11-20] MEDS: GUAIFENESIN 600 MG TABCR PO SCH ×2 (08:27→20:24)
[2016-11-20] MEDS: MULTIVITAMIN TAB PO SCH (08:31)
[2016-11-20] MEDS: AMLODIPINE BESYLATE 5 MG TAB PO SCH (08:31)
[2016-11-20] MEDS: CYANOCOBALAMIN 500 MCG TAB (VIT B-12) PO SCH (08:32)
[2016-11-20] MEDS ORDERED: MAGNESIUM SULFATE 1GM / D5W 1 GM in PREMIXED IN D5W 100 ML IV ONE (11:00)
[2016-11-20] MEDS: POTASSIUM CHLR 10 MEQ / WTR 10 MEQ in PREMIXED WATER 100 ML IV SCH ×3 (11:28→13:54)
--- NOTE | 2016-11-20 12:51 | Medical Student: [facility] ---
Med Student Progress Note Date of Service Nov 20, 2016. 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 Upon admisison, she was found to have pneumonia and lung mets to her brain. Today she states that she feels better. Sleeping and eating okay. Some cough with clear sputum. She used BiPAP at night and currently on 5L NC without problem (O2 sat 96). Pt also states that she had 2 bowel movements yesterday, loose stool, green color, and abdominal discomfort. Denies pain during interview. Review of Systems Constitutional: No fever, No chills Respiratory: + cough, + sputum (clear) Cardiac: No chest pain Abdomen: + pain, + diarrhea Musculoskeletal: + joint pain, + muscle pain Female : No dysuria, No incontinence Objective Vital Signs Date Time Temp Pulse Resp B/P (MAP) Pulse Ox O2 Delivery O2 Flow Rate FiO2 11/20/16 07:34 37.0 86 20 122/77 (92) 92 Nasal Cannula 5.0 11/20/16 07:32 Nasal Cannula 5.0 11/20/16 04:37 36.7 79 20 136/84 (101) 100 CPAP 5.0 11/20/16 00:00 Nasal Cannula 5.0 50 11/19/16 23:28 36.6 88 16 128/84 (99) 93 Nasal Cannula 5.0 11/19/16 23:21 90 98 40 11/19/16 22:48 81 96 50 11/19/16 19:08 36.6 90 20 119/79 (92) 94 Nasal Cannula 5.0 11/19/16 17:45 95 Nasal Cannula 5.0 50 11/19/16 16:00 Nasal Cannula 5.0 11/19/16 15:13 36.7 82 20 133/84 (100) 95 Nasal Cannula 5.0 11/19/16 12:00 Oxymask 15.0 11/19/16 11:28 37.0 74 18 142/66 (91) 96 Physical Exam General Appearance: + mild distress Eyes: bilateral eyes normal inspection ENT: hearing grossly normal Neck: supple Respiratory/Chest: + decreased breath sounds, + accessory muscle use, + rales ( left worse than right), + rhonchi, + wheezing Cardiovascular: regular rate, rhythm, no murmur Abdomen: normal bowel sounds, non tender, soft Extremities: + swelling Neurologic/Psychiatric: alert, normal mood/affect, oriented x 3 Laboratory Results Last 24 Hours Test 11/20/16 07:48 White Blood Count 16.37 K/uL Red Blood Count 4.48 M/uL Hemoglobin 10.7 g/dL Hematocrit 34.4 % Mean Corpuscular Volume 76.8 fL Mean Corpuscular Hemoglobin 23.9 pg Mean Corpuscular Hemoglobin Concent 31.1 g/dl RDW Standard Deviation 56.1 fL RDW Coefficient of Variation 23.2 % Platelet Count 248 K/uL Mean Platelet Volume 8.9 fL Sodium Level 140 mmol/L Potassium Level 2.9 mmol/L Chloride Level 101 mmol/L Carbon Dioxide Level 29 mmol/L Anion Gap 10.0 mmol/L Blood Urea Nitrogen 11 mg/dl Creatinine 0.42 mg/dl Est Creatinine Clear Calc Drug Dose 154.4 ml/min Estimated GFR () 133.7 Estimated GFR (Non- 115.4 BUN/Creatinine Ratio 25.0 Random Glucose 130 mg/dl Calcium Level 8.2 mg/dl Medications Current Inpatient Medications Medications (Trade) Dose Ordered Sig/Jaziel Route Start Time Stop Time Status Last Admin Dose Admin Ioversol (Optiray 320) 125 ml UD PRN IV 11/16/16 18:30 11/20/16 18:29 Enoxaparin Sodium (Lovenox Inj) 40 mg Q24H SC 11/16/16 21:00 12/16/16 20:59 11/19/16 21:12 40 MG Acetaminophen (Tylenol Tab) 650 mg Q4H PRN PO 11/16/16 19:15 12/16/16 19:14 Nitroglycerin (Nitrostat Tab) 0.4 mg UD PRN SL 11/16/16 19:15 12/16/16 19:14 Amlodipine Besylate (Norvasc Tab) 5 mg DAILY PO 11/17/16 09:00 12/17/16 08:59 11/20/16 08:31 5 MG Baclofen (Lioresal Tab) 10 mg TID PRN PO 11/16/16 19:15 12/16/16 19:14 Cyanocobalamin (Vitamin B-12 Tab) 500 mcg DAILY PO 11/17/16 09:00 12/17/16 08:59 11/20/16 08:32 500 MCG Fentanyl (Duragesic Patch) 12 mcg Q3D@2100 TD 11/16/16 21:00 11/30/16 20:59 Folic Acid (Folvite Tab) 1 mg DAILY PO 11/17/16 09:00 12/17/16 08:59 11/20/16 08:27 1 MG Levothyroxine Sodium (Synthroid Tab) 112 mcg DAILYBB PO 11/17/16 06:00 12/17/16 05:59 11/20/16 05:57 112 MCG Loratadine (Claritin Tab) 10 mg DAILY PO 11/17/16 09:00 12/17/16 08:59 11/19/16 08:56 10 MG Multivitamins (Multivitamin Tab) 1 tab DAILY PO 11/17/16 09:00 12/17/16 08:59 11/20/16 08:31 1 TAB Oxycodone HCl (Roxicodone Immediate Rel Tab) 5 mg Q6H PRN PO 11/16/16 19:15 11/30/16 19:14 Tramadol HCl (Ultram Tab) 50 mg Q4H PRN PO 11/16/16 19:15 12/16/16 19:14 Piperacillin Sod/ Tazobactam Sod 3.375 gm/Dextrose 115 ml @ 28.75 mls/ hr Q8H IV 11/17/16 02:00 11/23/16 23:59 11/20/16 10:26 28.75 MLS/HR Levofloxacin 500 mg/Prmx 100 ml @ 100 mls/hr Q24H IV 11/17/16 18:00 11/23/16 23:59 11/19/16 18:15 100 MLS/HR Ondansetron HCl (Zofran Inj) 4 mg Q6H PRN IV 11/16/16 19:15 12/16/16 19:14 Piperacillin Sod/ Tazobactam Sod (Consult) 1 ea UD PRN N/A 11/16/16 19:45 12/16/16 19:44 Miscellaneous (Fentanyl Patch Remove & Waste) 1 ea Q3D@2058 N/A 11/16/16 20:59 12/16/16 20:58 11/19/16 21:06 1 EA Miscellaneous Information (Check Fentanyl Patch Placement) 1 ea QS N/A 11/17/16 00:00 12/17/16 00:00 Ioversol (Optiray 320) 125 ml UD PRN IV 11/17/16 09:00 11/21/16 08:59 Quetiapine Fumarate (seroQUEL TAB) 25 mg HS PO 11/18/16 21:00 12/18/16 20:59 11/18/16 21:40 25 MG Guaifenesin (Mucinex Contr Rel Tab) 1,200 mg Q12 PO 11/18/16 21:00 12/18/16 20:59 11/20/16 08:27 1,200 MG Menthol (Nice Tamara) 1 tamara PRN PRN PO 11/19/16 06:15 12/19/16 06:14 Benzocaine (Orajel 2% Oral Gel) 1 appln Q4H PRN MT 11/19/16 09:00 12/19/16 08:59 11/19/16 15:27 1 APPLN Dexamethasone (Decadron Tab) 4 mg QID PO 11/20/16 12:00 12/20/16 11:59 UNV Potassium Chloride 30 meq/ Prmx 100 ml @ 100 mls/hr NOW STAT IV 11/20/16 10:18 11/20/16 11:17 UNV Potassium Chloride (Klor-Con Tab) 20 meq BID PO 11/20/16 20:00 11/21/16 20:01 UNV Magnesium Sulfate 1 gm/Prmx 100 ml @ 100 mls/hr ONE ONCE IV 11/20/16 10:30 11/20/16 11:29 UNV Assessment and Plan Assessment and Plan: This is 56 yo F with 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 X-ray upon admission showed focal opacities with left pleural effusion suggesting superimposed pneumonia. She is currently on Vanco, Levoquin, and Piperacillin/Tazobactam for pneumonia. On 11/17, head CT show 2 lesions on R and L frontal lobes concerning for metastatic disease to the brain. Metastatic Lung Adenocarcinoma - Head CT show 2 lesions on R and L frontal lobes concerning for metastatic disease to the brain. Not sure if the confusion is from the metastatic disease to the brain or pneumonia. - Pt is stable around 95-96 on 5L NC. Continue monitor and consult radiation on chica mets now that patient is weaned down on O2. - Continue BiPAP at night. Pneumonia/Infection - Continue Vancomycin, Levoquin, and Piperacillin/Tazobactam. - Continue Dexamethasone - Pt had diarrhea yesterday 11/19 and today 11/20. Could be from the abx she is currently taking but will do stool culture to rule out C.diff. Also start probiotics. Discharge planning: uncertain
[2016-11-20] MEDS: DEXAMETHASONE 4 MG TAB PO SCH ×3 (12:52→20:23)
[2016-11-20] MEDS: SACCHAROMYCES BOUL (FLORASTOR) 250 MG CAP PO SCH (13:41)
[2016-11-20] MEDS ORDERED: OXGN ×2 (15:06)
--- NOTE | 2016-11-20 15:09 | Progress Note ---
Subjective Date of Service: Nov 20, 2016. Subjective Patient is somewhat tearful today trying to discern how she care for her ill is with her being ill herself returned coronary home care arrangements and family support she is going to speak to radiation oncology and possibly be simulated for intracranial radiation for brain metastasis Problem List Medical Problems: (1) Altered mental status Status: Acute (2) Leukocytosis Status: Acute (3) Pneumonia Status: Acute Review of Systems Constitutional: + weakness, No fever, No chills, No fatigue Respiratory: + shortness of breath, + dyspnea on exertion, + dyspnea at rest, No cough Cardiac: No chest pain, No orthopnea, No PND, No edema Musculoskeletal: No joint pain, No muscle pain Neurologic: No memory loss, No paralysis Psychiatric: + depression symptoms, + anxiety Objective Vital Signs Date Time Temp Pulse Resp B/P (MAP) Pulse Ox O2 Delivery O2 Flow Rate FiO2 11/20/16 11:21 36.9 81 20 119/76 (90) 96 Nasal Cannula 5.0 11/20/16 07:34 37.0 86 20 122/77 (92) 92 Nasal Cannula 5.0 11/20/16 07:32 Nasal Cannula 5.0 11/20/16 04:37 36.7 79 20 136/84 (101) 100 CPAP 5.0 11/20/16 00:00 Nasal Cannula 5.0 50 11/19/16 23:28 36.6 88 16 128/84 (99) 93 Nasal Cannula 5.0 11/19/16 23:21 90 98 40 11/19/16 22:48 81 96 50 11/19/16 19:08 36.6 90 20 119/79 (92) 94 Nasal Cannula 5.0 11/19/16 17:45 95 Nasal Cannula 5.0 50 11/19/16 16:00 Nasal Cannula 5.0 11/19/16 15:13 36.7 82 20 133/84 (100) 95 Nasal Cannula 5.0 Physical Exam General Appearance: WD/WN, + mild distress Eyes: PERRL, EOMI Respiratory/Chest: chest non-tender, + decreased breath sounds, + accessory muscle use, + rhonchi Cardiovascular: regular rate, rhythm, no murmur Abdomen: normal bowel sounds, non tender, soft Extremities: + pedal edema, + swelling Neurologic/Psychiatric: alert, oriented x 3 Laboratory Results Last 24 Hours Test 11/20/16 07:48 White Blood Count 16.37 K/uL Red Blood Count 4.48 M/uL Hemoglobin 10.7 g/dL Hematocrit 34.4 % Mean Corpuscular Volume 76.8 fL Mean Corpuscular Hemoglobin 23.9 pg Mean Corpuscular Hemoglobin Concent 31.1 g/dl RDW Standard Deviation 56.1 fL RDW Coefficient of Variation 23.2 % Platelet Count 248 K/uL Mean Platelet Volume 8.9 fL Sodium Level 140 mmol/L Potassium Level 2.9 mmol/L Chloride Level 101 mmol/L Carbon Dioxide Level 29 mmol/L Anion Gap 10.0 mmol/L Blood Urea Nitrogen 11 mg/dl Creatinine 0.42 mg/dl Est Creatinine Clear Calc Drug Dose 154.4 ml/min Estimated GFR () 133.7 Estimated GFR (Non- 115.4 BUN/Creatinine Ratio 25.0 Random Glucose 130 mg/dl Calcium Level 8.2 mg/dl Assessment and Plan 56 F with metastatic lung cancer with profound hypoxia, pneumonia suspect gram negative or staph and marked confusion which has improved with steroid treatment of brain lesions Newly found cerebral metastasis in association with significantly abnormal chest x-ray and CT suggests persistent progression of her disease, discussion with her oncologist regarding direction of care will need to be undertaken and possible palliative care consult. The CT scan of her head does not show significant vasogenic edema however the patient has had improvement with dexamethasone will continue and eventually transitioned to oral, will see rad onc for possible intra cranial irradiation Gram-negative or staph pneumonia mucolytic's and chest physiotherapy, we'll de- escalate to Levaquin and Zosyn on 11/19 Acute on chronic hypoxic respiratory failure, patient is requiring maximum oxygen flow via Oxy- mask and occasional BiPAP support, she's been able to be titrated on a lower level of nasal cannula oxygen 11/19 the patient has decided to be a DO NOT RESUSCITATE DVT prevention based upon [facility] Discharge planning: uncertain
[2016-11-20] MEDS: LEVOFLOXACIN / D5W 500 MG in PREMIXED IN D5W 100 ML IV SCH (17:00)
--- NOTE | 2016-11-20 17:35 | Radiation Oncology Consult ---
Radiation Oncology Consult Date / Reason Nov 20, 2016. Diagnosis (1) Primary adenocarcinoma of lower lobe of right lung Onset Date: 08/28/2015 Permanent Comment: History of a chronic cough, abnormal CT of the chest 2015 Innumerable nodular opacities upper and lower lung bilaterally PET/CT 08/26/2015 FDG avid pulmonary nodules, avid lymph nodes, bone metastasis, and avidity of the endometrium Status post bronchoscopy and biopsy 08/28/2015 Adenocarcinoma Chemotherapy with Taxol/carboplatin, and Avastin Progression of disease and placement on Tarceva December 2015 Left hip pain with MRI showing 6.5 cm lytic mass Chemotherapy changed to Alimta 09/24/2016 Referral for palliative radiation therapy to the left hip Status post completion of radiation therapy 11/06/2016. She received 3000 cGy. Last Edited By: Felisa Solorzano on Nov 13, 2016 08:10 History of Present Illness We been asked to evaluate Ms. Lugo in consultation at the request of Dr. Rock. The patient was Ms. Lugo is a 56-year-old female who is well-known to our service. She has a history of metastatic lung cancer and was previously treated with external beam radiation therapy to the left pelvis and completed treatment in in October 2016. More recently, the patient to the emergency room with hypoxia and confusion. She did have a CT of the thorax completed in 11/08/2016 which revealed: "IMPRESSION: 1. Limited study secondary to extensive respiratory motion. Within the limitations of the study, there is no acute aortic pathology or evidence of pulmonary thromboembolic disease. 2. Segmental airspace opacities of the left lower lobe with small left pleural effusion suggests pneumonia. 3. 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 Crazy paving pattern of disease involves the left upper lobe. 4. Interval development of scattered lytic lesions throughout the thoracic and imaged upper lumbar spine without pathologic fracture suggest bony metastasis." Additionally, she did have a CT of the head completed in which revealed: "IMPRESSION: 1. No acute intracranial hemorrhage or midline shift. 2. Low attenuating lesions with minimal peripheral enhancement involving the subcortical right frontal lobe and periventricular left frontal lobe are suspicious for metastasis. No significant surrounding vasogenic edema. Further evaluation with follow-up MRI of the brain with and without contrast is needed." The patient was admitted to the hospital and has been treated with antibiotics and supplemental oxygen and occasional BiPAP which is improved or pulmonary function. Additionally, the patient was started on Decadron 4 mg every 6 hours and her mental status has improved significantly. We have now been asked to evaluate her for consideration of external beam radiation therapy for her intracranial metastatic disease. Pacemaker Hx Pacemaker: No Past History Past Medical/Surgical History: Cancer Social History Smoking Status: Never Smoker Hx Tobacco Use In Past Year?: No Quit Date: Aug 28, 2015 Do You Dip or Chew Tobacco: No Hx Alcohol Use: No Hx Substance Use : No Allergies Coded Allergies: No Known Allergies (Unverified , 11/16/16) PER PATIENT AND DEION IN ASU Home Medications Scheduled Amlodipine (Norvasc), 5 MG PO DAILY Ascorbic Acid (Vitamin C), 1 CAP PO BID Bromelains (Bromelain), 1 TAB PO DAILY Coenzyme Q10 (Ubidecarenone) (Coq10), 1 CAP PO DAILY Cyanocobalamin (Vitamin B-12), 500 MCG PO DAILY Dexamethasone (Decadron), 8 MG PO BID Fentanyl (Duragesic), 12 MCG TD [id number] Fentanyl (Fentanyl), q72 hrs Fentanyl (Fentanyl), 25 MCG TD Q72 Folic Acid (Folic Acid), 1 MG PO DAILY Home O2 Therapy (Oxygen), 1 LITER NA PRN Home O2 Therapy (Oxygen), 3 LITERS NA CONTINOUS Levothyroxine Sodium (Levothyroxine Sodium), 112 MCG PO DAILY Loratadine (Claritin), 10 MG PO DAILY Multivitamin (Multivitamin), 1 TAB PO DAILY Psyllium (Metamucil), 1 DOSE PO DAILY [Tumeric], 400 MG PO DAILY Scheduled PRN Albuterol Sulfate (Proventil Hfa), 1 INHA INH QID PRN for Shortness of Breath Baclofen (Lioresal), 10 MG PO TID PRN for Pain Naproxen Sodium (Aleve), 220 MG PO BID PRN for Pain Ondansetron Hcl (Zofran), 8 MG PO Q8 PRN for Nausea or Vomiting Oxycodone Ir (Roxicodone Ir), 5 MG PO Q6H PRN for Pain Prochlorperazine Maleate (Compazine), 10 MG PO QID PRN for Nausea or Vomiting Senna (Senokot), 1 TAB PO BID PRN for Constipation Tramadol (Ultram), 50 MG PO Q4H PRN for Pain Review of Systems Extremities: Hx Deep Vein Thrombosis: No Eyes: Hx Cataracts: No Ear/Hearing: Ear Side: Bilateral Hearing Ability: Normal Hearing Aid: None Edema: Present?: No Location Body Site Modifier: Bilateral Type: Non-pitting Degree: Trace Pain Management Patient Preferred Pain Scale: 0 - 10 Initial Pain Intensity: 0.0 Physical Exam Height: 5 (Feet) 4.00 (Inches) 162.6 (Centimeters) 1.6256 (Meters) Weight: 175 (Pounds) 4.3 (Ounces) 79.500 (Kilograms) 70778.000 (Grams) Date Time Temp Pulse Resp B/P (MAP) Pulse Ox O2 Delivery O2 Flow Rate FiO2 11/20/16 16:09 36.7 80 20 142/75 (97) 95 Nasal Cannula 5.0 11/20/16 16:00 96 Nasal Cannula 5.0 50 11/20/16 11:21 36.9 81 20 119/76 (90) 96 Nasal Cannula 5.0 11/20/16 07:34 37.0 86 20 122/77 (92) 92 Nasal Cannula 5.0 11/20/16 07:32 Nasal Cannula 5.0 11/20/16 04:37 36.7 79 20 136/84 (101) 100 CPAP 5.0 11/20/16 00:00 Nasal Cannula 5.0 50 11/19/16 23:28 36.6 88 16 128/84 (99) 93 Nasal Cannula 5.0 11/19/16 23:21 90 98 40 11/19/16 22:48 81 96 50 11/19/16 19:08 36.6 90 20 119/79 (92) 94 Nasal Cannula 5.0 11/19/16 17:45 95 Nasal Cannula 5.0 50 General Appearance: + mild distress Head: normocephalic, atraumatic Eyes: normal inspection ENT: normal ENT inspection Neck: supple, no adenopathy Respiratory/Chest: + respiratory distress, + decreased breath sounds, + crackles, + rales Cardiovascular: regular rate, rhythm, no edema, no gallop, no JVD, no murmur Abdomen/GI: normal bowel sounds, non tender, soft, no organomegaly, no pulsatile mass Back: normal inspection Extremities: normal inspection 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 COMPARISON: CT of the chest 11/16/2016, PET CT 08/26/2015 TECHNIQUE: Multiple axial CT images of the head were obtained both with and without the use of 93 mL Optiray 320. A dose lowering technique was used consistent with the principals of ALARA. FINDINGS: No acute intracranial hemorrhage, midline shift, abnormal extra-axial collections, hydrocephalus or territorial ischemia. Low attenuating 1.4 x 1.0 cm lesion seen within the subcortical white matter of the right frontal lobe is seen with minimal peripheral enhancement. Additionally, there is an 8 x 9 mm low attenuating lesion of the periventricular left frontal lobe with mild peripheral enhancement. Both of which are suspicious for possible metastasis. No additional abnormal enhancement is identified. No calvarial metastasis identified. Mastoid air cells, middle ear cavities and paranasal sinuses are clear. Soft tissues are unremarkable. Orbits are symmetric. IMPRESSION: 1. No acute intracranial hemorrhage or midline shift. 2. Low attenuating lesions with minimal peripheral enhancement involving the subcortical right frontal lobe and periventricular left frontal lobe are suspicious for metastasis. No significant surrounding vasogenic edema. Further evaluation with follow-up MRI of the brain with and without contrast is needed. (CHEST FOR PE) ANGIO WITH - 11/16/2016 CT DOSE: 598.21 mGy.cm HISTORY: 56 years-old Female presents with acute shortness of breath, hypoxia and confusion. History of lung cancer. TECHNIQUE: Multiple CTA images of the chest were obtained after the intravenous administration of 94 ml Optiray 320. Coronal and sagittal MIPS were obtained from the axial data set and were submitted for review. A dose lowering technique was utilized adhering to the principles of ALARA. COMPARISON: Chest CT 09/03/2016 FINDINGS: CTA: Heart is normal in size with trace pericardial effusion. Thoracic aorta is normal in course and caliber without dissection or aneurysm. The pulmonary arterial tree is well-opacified to the subsegmental branches, however evaluation is limited secondary to extensive respiratory motion. No focal pulmonary arterial tree filling defects are seen to suggest pulmonary embolus. There is reflux of contrast into the IVC, likely secondary to technique. CT CHEST: No dominant thyroid nodule is identified. No pathologic adenopathy about the chest is seen. There is a small left pleural effusion. Segmental airspace consolidation is present within the left lower lobe, notably involving the basilar segments. Additional scattered consolidative opacities are seen within the superior segment left lower lobe. This consolidation demonstrates nonuniform enhancement suggesting pneumonia. There is progression of diffuse nodular intralobular septal thickening with confluent pulmonary nodules and scattered groundglass opacities in a multilobar distribution bilaterally. There is a crazy paving pattern present within the left upper lobe. Central airways appear patent. 8 mm low attenuating lesion of the hepatic dome is unchanged from comparison. Nonspecific mild marek hepatis adenopathy is seen with lymph nodes measuring up to 1.0 cm. There is mild edema about the left flank subcutaneous tissues. Lytic lesions measuring up to 4 mm are seen within the mid vertebral bodies, notably at T6, T7 and T8, new from prior exam suspicious for metastasis no associated pathologic fracture. Similar-appearing lesion is seen at L1. IMPRESSION: 1. Limited study secondary to extensive respiratory motion. Within the limitations of the study, there is no acute aortic pathology or evidence of pulmonary thromboembolic disease. 2. Segmental airspace opacities of the left lower lobe with small left pleural effusion suggests pneumonia. 3. 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 Crazy paving pattern of disease involves the left upper lobe. 4. Interval development of scattered lytic lesions throughout the thoracic and imaged upper lumbar spine without pathologic fracture suggest bony metastasis. Assessment & Recommendations Ms. Lugo is a 56-year-old female who presents with a history of metastatic non-small cell lung carcinoma. Most recently, the patient was treated with palliative external beam radiation therapy in October 2016. As an outpatient, the patient has been treated with chemotherapy underneath the supervision of Dr. Galen Ruth. The patient was recently admitted to the hospital due to acute respiratory failure and altered mental status. Part of her workup including CT head with contrast which revealed metastatic disease involving the brain. She' s been started on Decadron which has helped her with her neurologic symptoms. We been asked to evaluate her for consideration of palliative external beam radiation therapy to the brain. Based on her clinical evaluation and imaging findings, we did discuss options for treatment of metastatic disease to the brain which included surgical resection and radiation therapy. If the patient is interested in surgical resection, she needs to have a neurosurgical consultation. We then focused our conversation on radiation therapy and then discussed the advantages and disadvantages of stereotactic radiation therapy and whole brain radiation therapy. Given the extent of disease, I have recommended stereotactic radiation therapy in the outpatient setting. Until the patient is treated with radiation therapy I have recommended that the patient continue on Decadron. Additionally, I have spoken with the primary hospital service in have requested that they complete a MRI of the brain with and without contrast (fine axial cuts on T1 with karolina) to aid in treatment planning. The patient is scheduled to come back as an outpatient for follow-up next week and we will then completed her CT simulation for treatment planning. We will coordinate treatment with Dr. Ruth from medical oncology. We explained the indications, alternatives, benefits, risks and side effects of external beam radiation therapy to the brain. We explain the most common side effects including but not limited to skin erythema, skin break down, hair loss, radiation necrosis, fatigue, short-term memory loss, decreased neurocognitive performance, cerebral edema, hearing loss, damage to cochlea structures, seizures, loss of sensory and or motor function. We explained the treatment planning process and what to expect before during and after treatment. The patient understands and would be willing to consent to treatment. The patient and family had multiple questions which were answered to their full satisfaction. Thank you for allowing us to participate in the care of this patient. This chart was completed in part utilizing [employer] Speech Voice Recognition software. Attempts were made to minimize the grammatical errors, random word insertions, pronoun errors and incomplete sentences. Any formal questions or concerns about the content, text or information contained within the body of this dictation should be directly addressed to the provider for clarification. Mickie Sherman MD Department of Radiation Oncology [facility] and Sabrina Jaffe [facility] Total Time In Consultation I spent 30 minutes examining and counseling the patient. I spent 15 minutes completing this note. CLAUDIA
[2016-11-20] MEDS: POTASSIUM CHLORIDE 20 MEQ TABCR PO SCH (20:23)
[2016-11-20] MEDS: ENOXAPARIN 40 MG/0.4 ML SYR SC SCH (20:24)
[2016-11-20] MEDS: QUETIAPINE FUMARATE 25 MG TAB PO SCH (20:25)
--- NOTE | 2016-11-20 22:50 | DIAGNOSTIC IMAGING REPORT ---
Brain MRI WITH AND WITHOUT CONTRAST HISTORY: Lung cancer. Headache. Abnormal head CT. TECHNIQUE: Multiplanar multisequence MRI of the brain was performed both before and after the intravenous administration of contrast. COMPARISON STUDY: Head CT 11/17/2016. FINDINGS: There are greater than 10 enhancing lesion seen within the supratentorial and infratentorial brain. The largest lesions are cystic with peripheral enhancement located within the frontal lobes. Dominant lesion within the right frontal lobe measures 1.4 cm. Dominant lesion within the posterior fossa seen within the left cerebellar hemisphere and measures 6 mm. These are consistent with metastatic disease. No significant mass effect or vasogenic edema at this time. The ventricles are normal in size. Subcentimeter pineal gland cyst. No acute infarct or hematoma. Paranasal sinuses and mastoid air cells are clear. The major vascular flow-voids at the skull base are well-maintained. IMPRESSION: Greater than 10 enhancing lesions within the brain consistent with metastatic disease. Electronically signed by: Michael Rodriguez M.D. 11/20/2016 10:49 PM Dictated Date/Time: 11/20/2016 10:43 PM
[2016-11-21] MEDS: PIPERACILL/TAZOBAC IV 3.375 GM in DEXTROSE 5% 100ML 100 ML IV SCH ×3 (01:28→18:31)
[2016-11-21] MEDS: LEVOTHYROXINE 112 MCG TAB PO SCH (05:59)
[2016-11-21] MEDS: CYANOCOBALAMIN 500 MCG TAB (VIT B-12) PO SCH (07:47)
[2016-11-21] MEDS: LORATADINE 10 MG TAB PO SCH (07:47)
[2016-11-21] MEDS: AMLODIPINE BESYLATE 5 MG TAB PO SCH (07:47)
[2016-11-21] MEDS: MULTIVITAMIN TAB PO SCH (07:48)
[2016-11-21] MEDS: GUAIFENESIN 600 MG TABCR PO SCH ×2 (07:48→21:03)
[2016-11-21] MEDS: SACCHAROMYCES BOUL (FLORASTOR) 250 MG CAP PO SCH (07:48)
[2016-11-21] MEDS: POTASSIUM CHLORIDE 20 MEQ TABCR PO SCH (07:48)
[2016-11-21] MEDS: DEXAMETHASONE 4 MG TAB PO SCH ×4 (07:49→19:52)
[2016-11-21] MEDS: CHECK FENTANYL PATCH PLACEMENT SCH ×4 (07:50→23:28)
[2016-11-21 08:30] VITALS: O2SAT 96
[2016-11-21 08:37] VITALS: BP 120/79; PULSE 75; TEMP 36.6; O2SAT 95
[2016-11-21 11:33] VITALS: BP 115/75; PULSE 85; TEMP 36.8; O2SAT 95
--- NOTE | 2016-11-21 14:02 | DIAGNOSTIC IMAGING REPORT ---
CHEST 2 VIEWS ROUTINE HISTORY: 56 years-old Female lung cancer, possible pneumonia, interval change history of metastatic breast cancer with left lower lobe pneumonia. Follow-up study. COMPARISON: CT of the chest 11/16/2016, chest radiograph August 16, 2016. TECHNIQUE: Portable upright AP view of the chest FINDINGS: Cardiac silhouette is moderately enlarged. There is no pneumothorax. There is redemonstration of multifocal bilateral multilobar pulmonary nodules. There is improved aeration of the bilateral lungs with decreased size of a persistent left lower lobe segmental opacity. Blunting of the left costophrenic angles compatible with small pleural effusion, also slightly decreased in size. Bones are grossly intact. IMPRESSION: 1. Improved aeration of the bilateral lungs with decreased size of persistent segmental left lower lobe airspace opacity. 2. Decreased size of small left pleural effusion. 3. Multifocal multilobar distribution of pulmonary nodules redemonstrated. The above report was generated using voice recognition software. It may contain grammatical, syntax or spelling errors. Electronically signed by: Raul Coeras M.D. 11/21/2016 2:00 PM Dictated Date/Time: 11/21/2016 1:57 PM
[2016-11-21 15:12] LABS: BUN/CREATININE RATIO 28.4 (10-20); CALCIUM 7.9 mg/dl (8.5-10.1); CREATININE 0.45 mg/dl (0.60-1.20); MAGNESIUM 2.1 mg/dl (1.8-2.4); POTASSIUM 3.1 mmol/L (3.5-5.1)
[2016-11-21 15:42] VITALS: BP 126/81; PULSE 84; TEMP 36.7; O2SAT 94
[2016-11-21] MEDS: NYSTATIN SUSP 500,000 U/5 ML UDC PO SCH ×3 (16:05→19:49)
[2016-11-21] MEDS: LEVOFLOXACIN / D5W 500 MG in PREMIXED IN D5W 100 ML IV SCH (17:05)
--- NOTE | 2016-11-21 18:54 | Progress Note ---
Subjective Date of Service: Nov 21, 2016. Subjective Pt evaluation today including: conversation w/ patient, conversation w/ family (, son, daughter in law at bedside), physical exam, chart review, lab review, review of studies (CT chest, cxr, MRI brain, etc), review of inpatient medication list Pain: mouth - mild; no cp or abd pain PO Intake: fair Voiding: no voiding problems reports cough is improved from previous denies any chest pain or abd pain but does have left hip pain (she received radiation for this in the past) is reluctant to take pain meds for such reports ongoing diarrhea but tolerable plan is for d/c to home with her brother and sister, NOT her she has home oxygen and a walker Problem List Medical Problems: (1) Altered mental status Status: Acute (2) Leukocytosis Status: Acute (3) Pneumonia Status: Acute Review of Systems Constitutional: No fever, No chills Respiratory: + dyspnea on exertion, No dyspnea at rest, No hemoptysis Cardiac: No chest pain, No orthopnea Abdomen: + diarrhea, No pain Musculoskeletal: + joint pain Objective Vital Signs Date Time Temp Pulse Resp B/P (MAP) Pulse Ox O2 Delivery O2 Flow Rate FiO2 11/21/16 16:00 Nasal Cannula 5.0 11/21/16 15:42 36.7 84 20 126/81 (96) 94 Nasal Cannula 5.0 11/21/16 11:33 36.8 85 20 115/75 (88) 95 Nasal Cannula 5.0 11/21/16 08:37 36.6 75 20 120/79 (93) 95 5.0 11/21/16 08:30 96 BiPAP 5.0 11/21/16 00:00 BiPAP 11/20/16 23:07 36.8 84 20 112/72 (85) 96 Nasal Cannula 5.0 11/20/16 20:30 37.1 81 20 122/79 (93) 95 Nasal Cannula 5.0 Physical Exam General Appearance: no apparent distress ENT: + pertinent finding (thrush plaques on buccal mucosa) Neck: no JVD Respiratory/Chest: no respiratory distress, no accessory muscle use, + rales ( both bases but no wheezes) Cardiovascular: regular rate, rhythm, no gallop Abdomen: normal bowel sounds, non tender, soft, no organomegaly Extremities: no pedal edema Neurologic/Psychiatric: alert, oriented x 3 Skin: + pertinent finding (significant clubbing of fingernails) Laboratory Results Last 24 Hours Test 11/21/16 14:27 Sodium Level 138 mmol/L Potassium Level 3.1 mmol/L Chloride Level 100 mmol/L Carbon Dioxide Level 30 mmol/L Anion Gap 8.0 mmol/L Blood Urea Nitrogen 13 mg/dl Creatinine 0.45 mg/dl Est Creatinine Clear Calc Drug Dose 143.0 ml/min Estimated GFR () 130.7 Estimated GFR (Non- 112.8 BUN/Creatinine Ratio 28.4 Random Glucose 151 mg/dl Calcium Level 7.9 mg/dl Magnesium Level 2.1 mg/dl Assessment and Plan 56yo female with: 1. acute hypoxic respiratory failure - 2nd to COPD with exacerbation, worsening lung cancer, and possible pneumonia. Improved over the course of her stay (was on BIPAP, now 5 L NC). Cont steroids, IV abx (1 more day), nebs, supportive care, etc. 2. stage 4 lung cancer with extensive bony mets and now brain mets - patient wishes to pursue additional chemotherapy at this point along with palliative xrt to the brain. MRI brain results reviewed with patient and her family today. Fortunately MRI brain does not show edema. Cont decadron. Can likely wean to BID dosing over the next week or two. To receive xrt to brain next week. Palliative care consult was done earlier this stay and, although she is DNR, she wishes to pursue ongoing treatment for cancer at this time. 3. thrush - nystatin solution. 4. probable b/l pneumonia - covering for gram negative etiology/nosocomial. Cont zosyn/levaquin - day # 6 of therapy today. 5. microcytic anemia - check iron studies in am. 6. DVT proph - lovenox. 7. significant deconditioning - patient has declined PT, OT at home. 8. hypothyroidism - on synthroid; check TSH in am. family extensively updated today possible d/c home tomorrow on NC O2 o2 sat goals 90-92% Continued [facility] stay due to: multiple IV medications needed Discharge planning: home with home health
[2016-11-21 19:46] VITALS: BP 131/84; PULSE 89; TEMP 36.5; O2SAT 94
[2016-11-21] MEDS ORDERED: POTASSIUM CHLORIDE 20 MEQ TABCR PO SCH (20:00)
[2016-11-21] MEDS: QUETIAPINE FUMARATE 25 MG TAB PO SCH ×2 (21:00→21:03)
[2016-11-21] MEDS: ENOXAPARIN 40 MG/0.4 ML SYR SC SCH (21:03)
[2016-11-21 23:23] VITALS: BP 125/84; PULSE 85; TEMP 36.9; O2SAT 95
[2016-11-22] MEDS: PIPERACILL/TAZOBAC IV 3.375 GM in DEXTROSE 5% 100ML 100 ML IV SCH ×3 (01:53→10:22)
[2016-11-22 03:34] VITALS: BP 117/78; PULSE 77; TEMP 36.9; O2SAT 98
[2016-11-22] MEDS: LEVOTHYROXINE 112 MCG TAB PO SCH (06:10)
[2016-11-22 06:48] LABS: HEMATOCRIT 35.3 % (37-47); MEAN CELL VOLUME 78.6 fL (80-100); MEAN CORPUSCULAR HEMOGLOBIN 23.6 pg (25-34); MEAN PLATELET VOLUME 9.3 fL (7.4-10.4); PLATELET COUNT 333 K/uL (130-400); RED BLOOD COUNT 4.49 M/uL (4.2-5.4)
[2016-11-22 07:15] LABS: BUN/CREATININE RATIO 34.9 (10-20); CALCIUM 8.1 mg/dl (8.5-10.1); CREATININE 0.35 mg/dl (0.60-1.20); POTASSIUM 3.7 mmol/L (3.5-5.1)
[2016-11-22 07:23] LABS: FERRITIN 431.6 ng/ml (8.0-388.0); THYROID STIMULATING HORMONE 0.786 uIu/ml (0.300-4.500)
[2016-11-22 07:39] VITALS: BP 137/84; PULSE 84; TEMP 36.6; O2SAT 96
[2016-11-22] MEDS: CHECK FENTANYL PATCH PLACEMENT SCH ×3 (08:00→23:55)
[2016-11-22] MEDS: LORATADINE 10 MG TAB PO SCH (08:23)
[2016-11-22] MEDS: GUAIFENESIN 600 MG TABCR PO SCH ×2 (08:23→20:20)
[2016-11-22] MEDS: DEXAMETHASONE 4 MG TAB PO SCH ×4 (08:24→20:20)
[2016-11-22] MEDS: AMLODIPINE BESYLATE 5 MG TAB PO SCH (08:24)
[2016-11-22] MEDS: CYANOCOBALAMIN 500 MCG TAB (VIT B-12) PO SCH (08:24)
[2016-11-22] MEDS: NYSTATIN SUSP 500,000 U/5 ML UDC PO SCH ×4 (08:25→20:19)
[2016-11-22] MEDS: MULTIVITAMIN TAB PO SCH (08:25)
[2016-11-22] MEDS: SACCHAROMYCES BOUL (FLORASTOR) 250 MG CAP PO SCH (08:25)
[2016-11-22 08:30] VITALS: O2SAT 96
[2016-11-22] MEDS: LOPERAMIDE HCL 2 MG CAP PO PRN ×2 (10:26→16:14)
[2016-11-22 11:15] VITALS: BP 129/87; PULSE 85; TEMP 36.3; O2SAT 98
[2016-11-22] MEDS: LEVOFLOXACIN 750 MG TAB PO SCH (12:53)
[2016-11-22 15:09] VITALS: BP 118/78; PULSE 84; TEMP 36.6; O2SAT 96
--- NOTE | 2016-11-22 19:57 | Progress Note ---
Subjective Date of Service: Nov 22, 2016. Subjective Pt evaluation today including: conversation w/ patient, physical exam, chart review, lab review, review of inpatient medication list Pain: left hip region PO Intake: fair Voiding: no voiding problems patient reports 2 episodes of loose stool this am she reports feeling "worn out" from having to go the bathroom for the diarrhea we had a lengthy discussion about her anticipated discharge she reports that she has confidence that her brother/sister can care for her she does NOT want to go any where but to her siblings' home (we discussed SNF/ rehab but not interested) she told me yesterday she did not want home PT/OT to start right away but now she is willing to consider this right at time of discharge reports feeling weak but "Stronger every day" continues with cough Problem List Medical Problems: (1) Altered mental status Status: Acute (2) Leukocytosis Status: Acute (3) Pneumonia Status: Acute Review of Systems Constitutional: + weakness, + fatigue, No fever, No chills Respiratory: + cough, + dyspnea on exertion Cardiac: No chest pain Abdomen: + diarrhea, No pain Objective Vital Signs Date Time Temp Pulse Resp B/P (MAP) Pulse Ox O2 Delivery O2 Flow Rate FiO2 11/22/16 16:00 Nasal Cannula 5.0 11/22/16 15:09 36.6 84 18 118/78 (91) 96 5.0 11/22/16 11:15 36.3 85 20 129/87 (101) 98 5.0 11/22/16 08:30 96 BiPAP 5.0 11/22/16 07:39 36.6 84 18 137/84 (101) 96 5.0 11/22/16 03:34 36.9 77 18 117/78 (91) 98 Nasal Cannula 5.0 11/22/16 00:00 Nasal Cannula 5.0 11/21/16 23:23 36.9 85 18 125/84 (98) 95 Nasal Cannula 5.0 Physical Exam General Appearance: no apparent distress ENT: + pertinent finding (thrush on tongue/buccal mucosa ) Neck: no JVD Respiratory/Chest: no respiratory distress, no accessory muscle use, + crackles (mild, bases) Cardiovascular: regular rate, rhythm, no gallop, no murmur Abdomen: normal bowel sounds, non tender, soft, no organomegaly Extremities: no pedal edema Neurologic/Psychiatric: alert, oriented x 3 Laboratory Results Last 24 Hours Test 11/22/16 06:27 White Blood Count 17.00 K/uL Red Blood Count 4.49 M/uL Hemoglobin 10.6 g/dL Hematocrit 35.3 % Mean Corpuscular Volume 78.6 fL Mean Corpuscular Hemoglobin 23.6 pg Mean Corpuscular Hemoglobin Concent 30.0 g/dl RDW Standard Deviation 68.5 fL RDW Coefficient of Variation 24.2 % Platelet Count 333 K/uL Mean Platelet Volume 9.3 fL Sodium Level 138 mmol/L Potassium Level 3.7 mmol/L Chloride Level 102 mmol/L Carbon Dioxide Level 28 mmol/L Anion Gap 8.0 mmol/L Blood Urea Nitrogen 12 mg/dl Creatinine 0.35 mg/dl Est Creatinine Clear Calc Drug Dose 183.9 ml/min Estimated GFR () 142.0 Estimated GFR (Non- 122.5 BUN/Creatinine Ratio 34.9 Random Glucose 138 mg/dl Calcium Level 8.1 mg/dl Iron Level 27 mcg/dl Total Iron Binding Capacity 176 mcg/dl Transferrin 137 mg/dl Transferrin % Saturation 14 % Ferritin 431.6 ng/ml Thyroid Stimulating Hormone (TSH) 0.786 uIu/ml Assessment and Plan 56yo female with: 1. acute hypoxic respiratory failure - 2nd to COPD with exacerbation, worsening lung cancer, and possible pneumonia. Improved over the course of her stay (was on BIPAP, now 5 L NC). Cont steroids, abx, nebs, supportive care, etc. 2. stage 4 lung cancer with extensive bony mets and now brain mets - patient wishes to pursue additional chemotherapy at this point along with palliative xrt to the brain. Cont decadron - can likely wean to 4mg TID at discharge. 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 Palliative care consult was done earlier this stay and, although she is DNR, she wishes to pursue ongoing treatment for cancer at this time. 3. thrush - nystatin solution. May need decadron. 4. probable b/l pneumonia - covering for gram negative etiology/nosocomial. Cont abx - day #7 of such - change to oral levaquin for 3 more days then stop. Cont probiotics. 5. microcytic anemia - iron studies c/w anemia chronic disease. 6. DVT proph - lovenox. 7. significant deconditioning - patient initially declined PT, OT at home; now willing to consider such. 8. hypothyroidism - on synthroid; TSH wnl. 9. diarrhea - c. diff is negative; abx - associated. add immodium prn. family extensively updated 11/21/16 o2 sat goals 90-92% will need o2 at home I had stalin discussion with patient today that her transition to home will be challenging highly recommended home PT, OT, and home health we discussed SNF placement - she declined; she is very intent on going home with brother/sister d/c tomorrow am Discharge planning: home with home health
[2016-11-22 20:03] VITALS: BP 133/87; PULSE 81; TEMP 36.7; O2SAT 98
[2016-11-22] MEDS: QUETIAPINE FUMARATE 25 MG TAB PO SCH (20:20)
[2016-11-22] MEDS: FENTANYL 12 MCG/HR TDSY TD SCH (20:20)
[2016-11-22] MEDS: ENOXAPARIN 40 MG/0.4 ML SYR SC SCH (20:21)
[2016-11-22] MEDS: FENTANYL PATCH REMOVE & WASTE SCH (20:46)
[2016-11-22] MEDS: BENZONATATE 100MG CAP PO SCH (21:04)
[2016-11-23 00:03] VITALS: BP 120/79; PULSE 82; TEMP 36.6; O2SAT 97
[2016-11-23 05:07] VITALS: BP 128/78; PULSE 80; TEMP 36.7; O2SAT 96
[2016-11-23] MEDS: LEVOTHYROXINE 112 MCG TAB PO SCH (05:14)
[2016-11-23 07:45] LABS: BLOOD UREA NITROGEN 13 mg/dl (7-18); BUN/CREATININE RATIO 49.6 (10-20); CALCIUM 8.1 mg/dl (8.5-10.1); CARBON DIOXIDE 27 mmol/L (21-32); CHLORIDE 100 mmol/L (98-107); CREATININE 0.27 mg/dl (0.60-1.20); GLUCOSE 131 mg/dl (70-99); MAGNESIUM 2.1 mg/dl (1.8-2.4); POTASSIUM 3.9 mmol/L (3.5-5.1); SODIUM 135 mmol/L (136-145)
[2016-11-23 07:59] VITALS: BP 128/85; PULSE 83; TEMP 36.7; O2SAT 94
[2016-11-23] MEDS: CHECK FENTANYL PATCH PLACEMENT SCH (08:00)
[2016-11-23] MEDS: LORATADINE 10 MG TAB PO SCH (08:00)
[2016-11-23] MEDS: AMLODIPINE BESYLATE 5 MG TAB PO SCH (08:03)
[2016-11-23] MEDS: GUAIFENESIN 600 MG TABCR PO SCH (08:03)
[2016-11-23] MEDS: NYSTATIN SUSP 500,000 U/5 ML UDC PO SCH ×2 (08:03→11:44)
[2016-11-23] MEDS: DEXAMETHASONE 4 MG TAB PO SCH ×2 (08:04→11:44)
[2016-11-23] MEDS: BENZONATATE 100MG CAP PO SCH (08:05)
[2016-11-23] MEDS: SACCHAROMYCES BOUL (FLORASTOR) 250 MG CAP PO SCH (08:05)
[2016-11-23] MEDS: CYANOCOBALAMIN 500 MCG TAB (VIT B-12) PO SCH (08:05)
[2016-11-23] MEDS: MULTIVITAMIN TAB PO SCH (08:06)
[2016-11-23 08:30] VITALS: O2SAT 96
[2016-11-23 11:36] VITALS: BP 124/75; PULSE 89; TEMP 36.6; O2SAT 95
[2016-11-23] MEDS: LEVOFLOXACIN 750 MG TAB PO SCH (11:44)
[2016-11-23] MEDS ORDERED: OMEP40CA41 PO (11:55)
[2016-11-23] MEDS ORDERED: SACC250C3 PO (11:55)
[2016-11-23] MEDS ORDERED: NYSS5 PO (11:55)
[2016-11-23] MEDS ORDERED: NEBMAC (11:55)
[2016-11-23] MEDS ORDERED: OXYC1TAB3 PO (11:55)
[2016-11-23] MEDS ORDERED: DRGTP12 TOP (11:55)
[2016-11-23] MEDS ORDERED: OXGN ×2 (11:55)
[2016-11-23] MEDS ORDERED: IPRASOL4 INH (11:55)
[2016-11-23] MEDS ORDERED: BENZ100C7 PO (11:55)
[2016-11-23] MEDS ORDERED: GFNSR600 PO (11:55)
[2016-11-23] MEDS ORDERED: IMD2X PO (11:55)
[2016-11-23] MEDS ORDERED: LVQ750 PO (11:55)
[2016-11-23] MEDS ORDERED: DXM/4 PO (11:55)
[2016-11-23 11:58] VITALS: BP 124/75; PULSE 89; TEMP 36.6; O2SAT 95
--- NOTE | 2016-11-23 12:16 | Discharge Instructions ---
Discharge Instructions Date of Service Nov 23, 2016. Admission Reason for Admission: pneumonia Discharge Discharge Diagnosis / Problem: Pneumonia, lung cancer Discharge Goals Goal(s): Decrease discomfort, Improve disease control, Learn about illness, Diagnostic testing, Therapeutic intervention Activity Recommendations Activity Limitations: resume your previous activity (as tolerated and with the assistance of home PT and OT ) . Instructions / Follow-Up Instructions / Follow-Up From Dr. Joel - 1. Pneumonia - * take 2 more days of your antibiotic (levofloxacin); prescription sent to pharmacy for you * start this TOMORROW on 11/24/16 * continue a "probiotic" for 7 days; prescription sent to pharmacy for you 2. Thrush - yeast infection in mouth - * use nystatin solution 5ml four times a day for 10 days * swish around in the mouth and swallow * prescription sent to pharmacy 3. Shortness of breath/cough/wheezing - * please ask the home oxygen company to get you a "nebulizer machine" * a medical supply company can also get you one * the medication that goes into the machine called "duonebs" (albuterol- ipratropium) is at the [facility] for you * you can take a neb treatment every 4-6 hours as needed for cough, wheezing, shortness of breath 4. Oxygen - * use 2 liters at rest and sleep/naps * use 5 liters with activity, leaving the house, etc 5. Pain - * continue on your fentanyl patch * continue your oxycodone 5mg as needed * new prescriptions given * you can take an occasional advil if desired 6. Your MRI brain showed areas where lung cancer moved to ("mets"). Please take dexamethasone 4mg four times a day. Dr. Ruth and/or Dr. Sherman will likely cut this back in the next few weeks. Please see Dr. Sherman this to discuss brain radiation. 7. To help protect your stomach from ulcers due to the steroids and occasional advil use please take omeprazole 40mg once every morning. This is an acid attending physician. 8. Diarrhea - * may use [id number] immodium as desired * it should improved in the next few days 9. Cough - * may purchase [id number] mucinex and can take up to 1200mg twice a day as desired for cough * I also sent a prescription for "tessalon pearles" to be used every 8 hours as needed for cough to the pharmacy for you 10. Follow-up - See Dr. Ruth and Dr. Sherman this as scheduled 11. Return to [facility] if - * you have worsening shortness of breath (at rest or with activity) that is not responding to your nebs, oxygen, etc * your oxygen levels are consistently less than 88% despite your supplemental oxygen * you develop pain in your legs, chest pain, etc * you develop new weakness of your arms or legs * you have uncontrollable vomiting, diarrhea, etc * you have fever greater than 100.5 degrees Current Hospital Diet Patient's current hospital diet: Regular Diet Discharge Diet Recommended Diet: Regular Diet Procedures Procedures Performed: CAT scan of the lungs, CAT scan of the brain, MRI of the brain Pending Studies Studies pending at discharge: no Medical Emergencies . Who to Call and When: Medical Emergencies: If at any time you feel your situation is an emergency, please call 911 immediately. . Non-Emergent Contact Non-Emergency issues call your: Primary Care Provider, Oncologist Call Non-Emergent contact if: temperature is above 100.5, your pain is not controlled, your pain is worsening, your pain is unusual for you, your pain is concerning you, you have any medication questions . . "Provider Documentation" section prepared by Alex Joel. . VTE Core Measure Inpt VTE Proph given/why not?: Enoxaparin (Lovenox)SQ
[2016-11-26] MEDS ORDERED: OXGN (09:44)
--- NOTE | 2016-11-26 10:40 | Discharge Summary ---
Discharge Summary Date of Service Nov 25, 2016. Discharge Summary Admission Date: Nov 16, 2016 at 19:17 Discharge Date: Nov 23, 2016 Discharge Disposition: Home with services Principal Diagnosis: acute hypoxic respiratory failure Problems/Secondary Diagnoses: 1. stage 4 lung cancer with extensive bony & brain mets 2. probable pneumonia 3. thrush - resolving 4. microcytic anemia 5. LLE weakness, possibly due to right sided brain met and/or left-sided hip metastatic disease 6. deconditioning 7. hyponatremia - resolved 8. hypokalemia - resolved 9. hypothyroidism 10. antibiotic-associated diarrhea 11. moderate protein calorie malnutrition 12. +troponin, likely myocardial demand ischemia in setting of her pneumonia & hypoxic respiratory failure 13. chronic respiratory failure, on home O2 - 2 L at rest, 5 L with activity 14. 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 CTA chest - IMPRESSION: 1. Limited study secondary to extensive respiratory motion. Within the limitations of the study, there is no acute aortic pathology or evidence of pulmonary thromboembolic disease. 2. Segmental airspace opacities of the left lower lobe with small left pleural effusion suggests pneumonia. 3. 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 Crazy paving pattern of disease involves the left upper lobe. 4. Interval development of scattered lytic lesions throughout the thoracic and imaged upper lumbar spine without pathologic fracture suggest bony metastasis. 2. CT head - IMPRESSION: 1. No acute intracranial hemorrhage or midline shift. 2. Low attenuating lesions with minimal peripheral enhancement involving the subcortical right frontal lobe and periventricular left frontal lobe are suspicious for metastasis. No significant surrounding vasogenic edema. Further evaluation with follow-up MRI of the brain with and without contrast is needed. 3. MRI brain - IMPRESSION: Greater than 10 enhancing lesions within the brain consistent with metastatic disease. Consultations: radiation oncology - Mickie Sherman MD palliative care Medication Reconciliation New Medications: Ipratropium-Albuterol (Duoneb) 3 Ml Nebu 1 TREATMENT INH Q4H PRN for cough/wheeze/sob, #1 BOX 5 Refills Nebulizer Machine (Home Use) (Nebulizer Machine (Home Use) ) Mis EA N/A UD, #1 dx - lung cancer, COPD, pneumonia Omeprazole (Prilosec) 40 Mg Cap 40 MG PO QAM, #30 CAP 5 Refills Benzonatate (Benzonatate) 100 Mg Cap 100 MG PO TID PRN for Cough, #30 CAP 0 Refills Guaifenesin Ext Rel (Mucinex Ext Rel) 600 Mg Tabcr 1200 MG PO Q12, #30 TAB 0 Refills can purchase over the counter Loperamide Hcl (Imodium) 2 Mg Cap 2 MG PO Q2H PRN for Diarrhea, #30 CAP 0 Refills purchase over the counter Nystatin (Nystatin) 5 Ml Susp 5 ML PO QID for 10 Days, #200 ML 1 Refill swish and swallow Saccharomyces Boulardii (Florastor) 250 Mg Cap 250 MG PO DAILY for 7 Days, #7 CAP 0 Refills Changed Medications: Dexamethasone (Decadron) 4 Mg Tab 4 MG PO QID, #60 TAB 1 Refill (Changed from: 8 MG; BID; Refills: ; Removed Instructions) Continued Medications: Albuterol Sulfate (Proventil Hfa) 108 Mcg/Act Aer 1 INHA INH QID PRN for Shortness of Breath Amlodipine (Norvasc) 5 Mg Tab 5 MG PO DAILY, TAB Ascorbic Acid (Vitamin C) 500 Mg Cap 1 CAP PO BID Baclofen (Lioresal) 10 Mg Tab 10 MG PO TID PRN for Pain, TAB Bromelains (Bromelain) 500 Mg Tab 1 TAB PO DAILY Coenzyme Q10 (Ubidecarenone) (Coq10) 400 Mg Cap 1 CAP PO DAILY Cyanocobalamin (Vitamin B-12) 500 Mcg Tab 5000 MCG PO DAILY, TAB Fentanyl (Duragesic) 25 Mcg/Hr Dis 12 MCG TD [id number] Folic Acid (Folic Acid) 1 Mg Tab 1 MG PO DAILY Levothyroxine Sodium (Levothyroxine Sodium) 112 Mcg Tab 112 MCG PO DAILY Loratadine (Claritin) 10 Mg Tab 10 MG PO DAILY PRN for Nasal Congestion, TAB Naproxen Sodium (Aleve) 220 Mg Tab 220 MG PO BID PRN for Pain, TAB Ondansetron Hcl (Zofran) 8 Mg Tab 8 MG PO Q8 PRN for Nausea or Vomiting, TAB Oxycodone Ir (Roxicodone Ir) 5 Mg Tab 5 MG PO Q6H PRN for Pain, #30 TAB 0 Refills (This prescription has been renewed) Prochlorperazine Maleate (Compazine) 10 Mg Tab 10 MG PO QID PRN for Nausea or Vomiting, TAB NAUSEA/VOMITING Senna (Senokot) 8.6 Mg Tab 1 TAB PO BID PRN for Constipation, TAB [Tumeric] () 400 MG PO DAILY Discontinued Medications: Fentanyl (Fentanyl) 25 Mcg Tdsy 25 MCG TD Q72 Psyllium (Metamucil) 48.57 % Pow 1 DOSE PO DAILY Tramadol (Ultram) 50 Mg Tab 50 MG PO Q4H PRN for Pain, TAB Referrals At Discharge Follow up Referrals: Oncology/Hematology Referral - 11/26/16 with Galen Ruth D.O. Radiation Oncology Referral - 11/26/16 with Veeral. Sherman MD Discharge Exam Physical Exam: General Appearance: no apparent distress ENT: + pertinent finding (resolving thrush) Neck: no JVD Respiratory/Chest: no respiratory distress, no accessory muscle use, + rales (both bases), + wheezing (mild) Cardiovascular: regular rate, rhythm, no gallop, no murmur, normal peripheral pulses Abdomen / GI: normal bowel sounds, non tender, soft, no organomegaly Extremities: no pedal edema Neurologic/Psychiatric: alert, oriented x 3, + motor weakness (mild left leg weakness) Skin: + pertinent finding (severe fingernail clubbing ) Hospital Course HISTORY OF PRESENT ILLNESS: The patient is a 56-year-old female with known stage 4 lung cancer with extensive bony mets, s/p chemotherapy and radiation therapy, who presented with progressively worsening shortness of breath over the past several days. She became acutely worse on the day of presentation. Upon evaluation in the emergency department she was immediately placed on BiPAP with improvement in her breathing. She reported having an intermittent productive cough. HOSPITAL COURSE: The patient's acute hypoxic respiratory failure was due to a combination of pneumonia, worsening lung cancer, and suspected underlying COPD with exacerbation. She was initially treated with BIPAP and fortunately, with time/supportive care/ antibiotics/steroids, BIPAP was able to be weaned off and transitioned to NC O2. She improved clinically and radiographically. Two-step oxygen test prior to discharge showed she required 2 L NC with rest/ sleep and 5 L with activity. She will discharge home on decadron (see below), nebs, and antibiotics (2 additional days of levaquin). Blood and urine cultures were negative during her stay. Prescriptions for a nebulizer machine & duonebs were given at time of discharge as well. Unfortunately during this stay brain mets were discovered on CT of the head and confirmed on MRI brain with several lesions quite large. One of the right-sided lesions in the frontal lobe could be contributing to mild left leg weakness. She was started on decadron 4mg QID to treat/prevent brain swelling. Dr. Mickie Sherman from radiation oncology saw her in consult who recommended a series of radiation treatments to the brain. These will start in the week after discharge. She was seen in consult by the palliative care team as well. Although she changed her code status to DNR she was not ready to pursue hospice services. Other issues addressed while here included - 1. thrush - she will complete a course of nystatin solution for such. 2. significant deconditioning - patient declined going to a rehab center and instead wished to return home with her brother and sister. She will receive home PT, OT, and home health services. 3. diarrhea - c. diff was negative; thus this was antibiotic-associated diarrhea. She was treated with probiotics & immodium with improvement. Total Time Spent: Greater than 30 minutes This includes examination of the patient, discharge planning, medication reconciliation, and communication with other providers. Discharge Instructions Please refer to the electronic Patient Visit Report (Discharge Instructions) for additional information. Follow-Up see Dr. Ruth - oncology - and Dr. Sherman - radiation oncology - 11/26/16 Dr. Marks, PCP, within 1 week Additional Copies To Reynold Marks M.D.; Galen Ruth D.O.; Veeral. Sherman MD
[2016-12-07] MEDS ORDERED: CALC500C3 (11:20)
[2016-12-07] MEDS ORDERED: DXM/4 PO (11:40)
[2016-12-11] MEDS ORDERED: FNTTP25 TD (11:33)
[2016-12-14] MEDS ORDERED: BENZ100C84 PO (12:59)
[2016-12-14] MEDS ORDERED: tumeric PO (12:59)
== END 2016-11-23 13:30 | disposition home health service (06) | DRG 180 ==
LOC: C.EDB 16:59 → C.2T 19:17 → EDBEDREQ 19:25 → ENRESERV 19:39 → C.4E 11-19 17:53
PROVIDERS: ADMIT Hospitalist; ATTEND Internal Medicine
DX: C34.31 Malignant neoplasm of lower lobe, right bronchus or lung (principal); J18.9 Pneumonia, unspecified organism; J96.21 Acute and chronic respiratory failure with hypoxia; J96.22 Acute and chronic respiratory failure with hypercapnia; C79.31 Secondary malignant neoplasm of brain; C79.51 Secondary malignant neoplasm of bone; J44.1 Chronic obstructive pulmonary disease with (acute) exacerbation; I10 Essential (primary) hypertension; E03.9 Hypothyroidism, unspecified; B37.9 Candidiasis, unspecified; G89.4 Chronic pain syndrome; D50.9 Iron deficiency anemia, unspecified; R19.7 Diarrhea, unspecified; Z51.5 Encounter for palliative care; Z66 Do not resuscitate; Z79.899 Other long term (current) drug therapy; Z92.3 Personal history of irradiation

== ENCOUNTER 2016-12-08 10:54 | Inpatient (IN) | payer OTHER ==
[~2016-12-08] VITALS: Ht 162.6 cm; Wt 77.9 kg
[2016-12-08] MEDS: LEVOTHYROXINE 100 MCG TAB PO SCH (07:00)
[~2016-12-08 10:54] MED LIST changes: -ALBUAER INH; -AMLO-110 PO; -ASCO1CAP3 PO; +BENZ100C7 PO; +CALC500C3; -COEN400C5 PO; -DRGTP12; -FENT25DI10 TD; +IMD2X PO; -MULT-506 PO; +OMEP40CA41 PO; +OXGN; -OXYC1TAB3 PO; -PROC1TAB5 PO; -PSYL48.59 PO; -TRAM-10 PO; -Tumeric PO
--- NOTE | 2016-12-08 11:41 | EMERGENCY ROOM VISIT NOTE ---
History Report prepared by Dex: Ashley Manuel Under the Supervision of: Dr. Ivan Xie M.D. First contact with patient: 11:24 Chief Complaint: SWELLING TO EXTREMITY Stated Complaint: FROM RAD/ONC, SWELLING THROUGH NECK,SUBQ EMPHYSEMA History of Present Illness The patient is a 56 year old female who presents to the Emergency Room with complaints of persistent swelling to her neck that began yesterday. She currently rates her discomfort as a 3/10 in severity. Per the patient's family , the patient has a history of lung cancer that was diagnosed in August 2015. The patient's family notes that the patient has been on chemotherapy since then. The patient's family reports that the patient was diagnosed with pneumonia on 11/16 and notes that at that time, the patient was found to have multiple brain mets. The family reports that the patient now is undergoing radiation and is not on chemotherapy at this time. The patient states that she suddenly felt her lymph nodes begin to swell. She states that she noticed a crackle to her left lung last evening. The patient states that this morning her oncologist found a lump to her right shoulder and was sent up to the emergency department. She denies any recent procedures. The patient denies any fever or chills and reports normal eating and drinking. She states that she is on 2-2.5 liters of supplemental nasal cannula oxygen at all times. Source of History: patient, family Onset: yesterday Position: neck Symptom Intensity: 3/10 Quality: other (swelling) Timing: other (persistent) Associated Symptoms: No fevers, No chills Review of Systems All systems have been listed, reviewed, and are negative other than those previously mentioned. Please see Additional Medical History Sheet. Past Medical & Surgical Medical Problems: (1) Acute respiratory failure with hypoxia and hypercapnia (2) Brain metastases (3) Hypertension (4) Hypoxia (5) Pneumonia (6) Small cell lung cancer Surgical Problems: (1) Previous section Family History Cancer Diabetes mellitus Hypertension Social History Smoking Status: Former Smoker Smokeless Tobacco Use: No Alcohol Use: none Drug Use: none Marital Status: Housing Status: lives with family Occupation Status: unemployed Current/Historical Medications Scheduled Amlodipine (Norvasc), 5 MG PO DAILY Calcium Carbonate (Tums), 2 TID Coenzyme Q10 (Ubidecarenone) (Coq-10), Unknown Dose PO DAILY Dexamethasone (Decadron), 1 TAB PO Q12 Folic Acid (Folic Acid), 1 MG PO DAILY Home O2 Therapy (Oxygen), 3 LITER NA DAILY Levothyroxine Sodium (Levothyroxine Sodium), 100 MCG PO DAILY Omeprazole (Prilosec), 40 MG PO QAM Scheduled PRN Loperamide Hcl (Imodium), 2 MG PO Q2H PRN for Diarrhea Loratadine (Claritin), 10 MG PO DAILY PRN for Nasal Congestion Naproxen Sodium (Aleve), 220 MG PO BID PRN for Pain Allergies Coded Allergies: No Known Allergies (Unverified , 12/08/16) PER PATIENT AND DEION IN ASU Physical Exam Vital Signs Date Time Temp Pulse Resp B/P (MAP) Pulse Ox O2 Delivery O2 Flow Rate FiO2 12/08/16 15:11 100 28 96 12/08/16 15:01 150/100 12/08/16 14:56 109 33 95 12/08/16 14:41 102 26 96 12/08/16 14:31 153/97 12/08/16 14:26 102 27 96 12/08/16 14:18 146/103 12/08/16 14:01 149/103 12/08/16 13:56 101 26 95 12/08/16 13:54 100 12/08/16 13:51 143/102 12/08/16 13:06 108 23 12/08/16 13:01 161/99 12/08/16 12:57 157/98 12/08/16 12:36 105 18 95 12/08/16 12:31 142/104 12/08/16 12:24 103 25 96 12/08/16 12:01 156/99 12/08/16 11:54 107 25 95 12/08/16 11:54 108 20 149/103 95 Nasal Cannula 2.0 12/08/16 11:49 149/103 12/08/16 11:36 96 Nasal Cannula 2.0 12/08/16 11:31 172/122 12/08/16 11:24 111 165/113 97 Nasal Cannula 2.0 12/08/16 11:24 110 36 97 12/08/16 11:15 112 12/08/16 10:58 36.7 104 18 136/92 98 Nasal Cannula 2.0 Physical Exam GENERAL: Patient awake, alert, oriented x 3. Patient follows commands. Patient does not appear toxic. Patient is adequately hydrated and well- nourished. SKIN: No erythema, pallor, cyanosis or rash HEENT: Normal head, pupils equal, reactive to light and accommodation. Old scar to the right ear. Oral cavity and posterior pharynx appear normal. Neck: Swelling to the neck, no neck vein distention. LUNGS:Crackles bilaterally, left greater than right. No wheezes, no rales, no rhonchi. HEART: No murmurs. No gallops. No rubs ABDOMEN: No masses, no rebound, no hepatomegaly or splenomegaly. EXTREMITIES: Small lump to the right shoulder. No signs of trauma. No pedal or pretibial edema. No calf or thigh tenderness. NEUROLOGIC: Cranial nerves II-XII within normal limits. No gross motor sensory function deficits. Medical Decision & Procedures ER Provider Diagnostic Interpretation: Radiology results as stated below per my review and radiologist interpretation: CHEST ONE VIEW PORTABLE CLINICAL HISTORY: Neck swelling. Possible subcutaneous emphysema. Lung cancer. COMPARISON STUDY: Chest CT November 16, 2016 and chest radiograph November 21, 2016. FINDINGS: There is no pneumothorax or pleural effusion. There has been interval development of pneumomediastinum and moderate subcutaneous gas within the lower neck. Mass-like left lower lung opacities are noted. Reticulonodular interstitial thickening throughout the lungs is unchanged. IMPRESSION: 1. Interval development of moderate pneumomediastinum and subcutaneous gas within the lower neck. No pneumothorax. 2. Redemonstration of mass-like left lower lung airspace opacity and diffuse reticulonodular interstitial thickening which may reflect extensive metastases. Electronically signed by: Malik Nunez M.D. 12/08/2016 12:09 PM Dictated Date/Time: 12/08/2016 12:05 PM (CHEST) THORAX WITH CLINICAL HISTORY: 56 years-old Female presenting with emphysema, swelling in the neck, pneumomediastinum, lung cancer. TECHNIQUE: Multidetector CT imaging of the chest was performed after the administration of intravenous contrast. IV contrast: 110 mL of Optiray 320. A dose lowering technique was used consistent with the principles of ALARA (as low as reasonably achievable). COMPARISON: 11/16/[address] abdomen and pelvis from 07/10/2016.. CT DOSE (mGy.cm): The estimated cumulative dose is 368.91 mGy.cm. FINDINGS: Department Assistant topogram: Diffuse bilateral pulmonary opacities. On soft tissue windows, soft tissue emphysema at the base of the neck extends to the posterior soft tissues around the chest wall and emanates from the pneumomediastinum, which is new from prior. No axillary, supraclavicular, hilar, or mediastinal lymphadenopathy. Normal aorta. Main pulmonary artery top normal in size. Heart top normal in size. No pericardial or pleural effusion. Multifocal hypodensities in the liver new from prior exam in 07/10/2016. These have suspicious morphologies with irregular margins. Left adrenal mass, new from June. Lymphadenopathy in the gastrohepatic, portacaval, and celiac regions. On lung windows, slight interval clearance of previously noted groundglass opacity that was diffusely involving all 5 lobes. Persistent innumerable nodular opacities with nodular interlobular septal thickening. Persistent extensive consolidation in the left lower lobe. Emphysematous changes noted at the apices. Airways demonstrate wall thickening. No stalin bronchial or tracheal wall disruption. On bone windows, degenerative changes of the thoracic spine. Previously noted scattered lytic lesions in the vertebral bodies again suggested. IMPRESSION: 1. Significant interval clearance of groundglass opacity that previously diffusely affected all 5 lobes could this likely indicates improved edema or infection. 2. Innumerable irregular pulmonary nodules consistent with diffuse metastatic disease. 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 3. More dense left lower lobe consolidation could relate to metastatic disease or superimposed consolidation/pneumonia. 4. Notably, interval development of multiple hepatic lesions, which are new from June 2016 and are most suspicious for hepatic metastatic disease. Additionally, left adrenal nodule is new since June and also consistent with a site of metastatic disease as well as upper abdominal lymphadenopathy. 5. Findings again suggestive of osseous metastatic disease. 6. Extensive pneumomediastinum. Electronically signed by: Lang Amaya M.D. 12/08/2016 1:33 PM Dictated Date/Time: 12/08/2016 1:23 PM Laboratory Results 12/08/16 11:40 Red Blood Count 4.93, Mean Corpuscular Volume 78.9, Mean Corpuscular Hemoglobin 23.7, Mean Corpuscular Hemoglobin Concent 30.1, Mean Platelet Volume 10.0, Neutrophils (%) (Auto) 92.6, Lymphocytes (%) (Auto) 2.4, Monocytes (%) (Auto) 1.6, Eosinophils (%) (Auto) 0.6, Basophils (%) (Auto) 0.1, Neutrophils # (Auto) 17.78, Lymphocytes # (Auto) 0.47, Monocytes # (Auto) 0.30, Eosinophils # (Auto) 0.11, Basophils # (Auto) 0.02 12/08/16 11:40 12/08/16 13:44 Test 12/08/16 11:40 12/08/16 12:57 12/08/16 13:18 12/08/16 13:44 White Blood Count 19.19 K/uL (4.8-10.8) Red Blood Count 4.93 M/uL (4.2-5.4) Hemoglobin 11.7 g/dL (12.0-16.0) Hematocrit 38.9 % (37-47) Mean Corpuscular Volume 78.9 fL (80-100) Mean Corpuscular Hemoglobin 23.7 pg (25-34) Mean Corpuscular Hemoglobin Concent 30.1 g/dl (32-36) Platelet Count 144 K/uL (130-400) Mean Platelet Volume 10.0 fL (7.4-10.4) Neutrophils (%) (Auto) 92.6 % Lymphocytes (%) (Auto) 2.4 % Monocytes (%) (Auto) 1.6 % Eosinophils (%) (Auto) 0.6 % Basophils (%) (Auto) 0.1 % Neutrophils # (Auto) 17.78 K/uL (1.4-6.5) Lymphocytes # (Auto) 0.47 K/uL (1.2-3.4) Monocytes # (Auto) 0.30 K/uL (0.11-0.59) Eosinophils # (Auto) 0.11 K/uL (0-0.5) Basophils # (Auto) 0.02 K/uL (0-0.2) RDW Standard Deviation 67.6 fL (36.4-46.3) RDW Coefficient of Variation 23.6 % (11.5-14.5) Immature Granulocyte % (Auto) 2.7 % Immature Granulocyte # (Auto) 0.51 K/uL (0.00-0.02) Toxic Granulation 1+ Toxic Vacuolation 1+ Anisocytosis PRESENT Microcytosis PRESENT Anion Gap 8.0 mmol/L (3-11) Est Creatinine Clear Calc Drug Dose 162.7 ml/min Estimated GFR () 137.0 Estimated GFR (Non- 118.2 BUN/Creatinine Ratio 42.7 (10-20) Calcium Level 7.8 mg/dl (8.5-10.1) Total Bilirubin 0.4 mg/dl (0.2-1) Alanine Aminotransferase (ALT/SGPT) 23 U/L (12-78) Alkaline Phosphatase 91 U/L (45-117) Total Protein 5.6 gm/dl (6.4-8.2) Albumin 2.4 gm/dl (3.4-5.0) Globulin 3.2 gm/dl (2.5-4.0) Albumin/Globulin Ratio 0.8 (0.9-2) Prothrombin Time 10.7 SECONDS (9.0-12.0) Prothromb Time International Ratio 1.0 (0.9-1.1) Activated Partial Thromboplast Time 25.4 SECONDS (21.0-31.0) Partial Thromboplastin Ratio 1.0 Urine Color YELLOW Urine Appearance CLEAR (CLEAR) Urine pH 7.0 (4.5-7.5) Urine Specific [place] 1.021 (1.000-1.030) Urine Protein NEG (NEG) Urine Glucose (UA) 2+ (NEG) Urine Ketones NEG (NEG) Urine Occult Blood NEG (NEG) Urine Nitrite NEG (NEG) Urine Bilirubin NEG (NEG) Urine Urobilinogen NEG (NEG) Urine Leukocyte Esterase NEG (NEG) Aspartate Amino Transf (AST/SGOT) 7 U/L (15-37) Laboratory results as stated above per my review. ECG Indication: other (crackles in neck) Rate (beats per minute): 104 Rhythm: sinus tachycardia Findings: no acute ischemic change, no ectopy, other (atrial enlargement) ED Course 1125: Past medical records reviewed. The patient was evaluated in room C6. A complete history and physical examination was performed. 1424: I discussed the patients case with Wilfredo Elias, Cardiothoracic PAWard. He is going to discuss the patients case with Dr. Bauer. 1442: I reevaluated the patient and she is resting. I discussed the exam findings with her and I discussed the treatment plan. She verbalized complete understanding and agreement. She is going to be evaluated for further treatment. 1445: I discussed the patients case with Dr. Bauer, Cardiothoracic Surgery. He states that the patient should be evaluated for further treatment. He additionally states that ENT should be consulted. 1453: I discussed the patients case with VIV Collins at this time. He states that he will evaluate the patient and scope the patient. 1457: I discussed the patients case with Feliciano Davies PA-C. She is going to evaluate the patient for further treatment. Medical Decision Nurses notes reviewed. Medical history sheet reviewed. Differential diagnosis includes but is not limited to: Subcutaneous emphysema, lung cancer, metabolic disorder, infection, pneumonia. Multiple labs, EKG and imaging were obtained. Please see above. White count is elevated to 19,000. The patient has metastatic lung cancer but also has a pneumomediastinum. I discussed care with multiple consultants. Please see below. The patient will require further evaluation in the hospital. I discussed care with the patient and with another family member. Medication Reconcilliation Current Medication List: was personally reviewed by me Blood Pressure Screening Patient's blood pressure: Elevated blood pressure The patient will be followed up by the hospitalist Consults Time Called: 1420 Consulting Physician: Nba Watkins PA-C Returned Call: 1423 I discussed the patients case with Nba Watkins PA-C. He is going to discuss the patients case with Dr. Bauer. Additional Consults: Time Called: 1448 Consulted Physician: VIV Collins Returned Call: [phone] Additional Comments: I discussed the patients case with VIV Collins at this time. He states that he will evaluate the patient and scope the patient. Time Called: 1448 Consulted Physician: Dr. José Ba Returned Call: [phone] Additional Comments: I discussed the patients case with Dr. José Ba. He is going to evaluate the patient for further treatment. Impression Primary Impression: Pneumomediastinum Additional Impression: Metastatic lung cancer (metastasis from lung to other site) Scribe Attestation The scribe's documentation has been prepared under my direction and personally reviewed by me in its entirety. I confirm that the note above accurately reflects all work, treatment, procedures, and medical decision making performed by me. Departure Information Dispostion Being Evaluated By Hospitalist Referrals No Doctor, Assigned (PCP) Problem Qualifiers
--- NOTE | 2016-12-08 12:10 | DIAGNOSTIC IMAGING REPORT ---
CHEST ONE VIEW PORTABLE CLINICAL HISTORY: Neck swelling. Possible subcutaneous emphysema. Lung cancer. COMPARISON STUDY: Chest CT November 16, 2016 and chest radiograph November 21, 2016. FINDINGS: There is no pneumothorax or pleural effusion. There has been interval development of pneumomediastinum and moderate subcutaneous gas within the lower neck. Mass-like left lower lung opacities are noted. Reticulonodular interstitial thickening throughout the lungs is unchanged. IMPRESSION: 1. Interval development of moderate pneumomediastinum and subcutaneous gas within the lower neck. No pneumothorax. 2. Redemonstration of mass-like left lower lung airspace opacity and diffuse reticulonodular interstitial thickening which may reflect extensive metastases. Electronically signed by: Malik Nunez M.D. 12/08/2016 12:09 PM Dictated Date/Time: 12/08/2016 12:05 PM
[2016-12-08 12:18] LABS: BASO % 0.1 %; BASO ABS # 0.02 K/uL (0-0.2); EOS % 0.6 %; HEMATOCRIT 38.9 % (37-47); IG% 2.7 %; LYMPH % 2.4 %; LYMPH ABS # 0.47 K/uL (1.2-3.4); MEAN CELL VOLUME 78.9 fL (80-100); MEAN CORPUSCULAR HEMOGLOBIN 23.7 pg (25-34); MEAN CORPUSCULAR HGB CONC 30.1 g/dl (32-36); MONO % 1.6 %; NEUT % 92.6 %; PLATELET COUNT 144 K/uL (130-400); RED BLOOD COUNT 4.93 M/uL (4.2-5.4); WHITE BLOOD COUNT 19.19 K/uL (4.8-10.8)
[2016-12-08] MEDS ORDERED: AMLO-110 PO (12:22)
[2016-12-08] MEDS ORDERED: COEN30CA8 PO (12:22)
[2016-12-08 12:41] LABS: ANISOCYTOSIS PRESENT; COMPLETE YES; MICROCYTOSIS PRESENT; TOXIC GRANULATION 1+; VACUOLIZATION 1+
[2016-12-08] MEDS ORDERED: OPTIRAY 320 IV PRN (12:45)
[2016-12-08 12:55] LABS: ALB/GLOB RATIO 0.8 (0.9-2); ALKALINE PHOSPHATASE 91 U/L (45-117); ALT/SGPT 23 U/L (12-78); BLOOD UREA NITROGEN 17 mg/dl (7-18); BUN/CREATININE RATIO 42.7 (10-20); CALCIUM 7.8 mg/dl (8.5-10.1); CARBON DIOXIDE 27 mmol/L (21-32); CHLORIDE 100 mmol/L (98-107); CREATININE 0.39 mg/dl (0.60-1.20); GLUCOSE 286 mg/dl (70-99); SODIUM 135 mmol/L (136-145)
[2016-12-08 13:26] LABS: PROTHROMBIN TIME (PATIENT) 10.7 SECONDS (9.0-12.0)
--- NOTE | 2016-12-08 13:35 | DIAGNOSTIC IMAGING REPORT ---
(CHEST) THORAX WITH CLINICAL HISTORY: 56 years-old Female presenting with emphysema, swelling in the neck, pneumomediastinum, lung cancer. TECHNIQUE: Multidetector CT imaging of the chest was performed after the administration of intravenous contrast. IV contrast: 110 mL of Optiray 320. A dose lowering technique was used consistent with the principles of ALARA (as low as reasonably achievable). COMPARISON: 11/16/[address] abdomen and pelvis from 07/10/2016.. CT DOSE (mGy.cm): The estimated cumulative dose is 368.91 mGy.cm. FINDINGS: Automotive Sales Associate topogram: Diffuse bilateral pulmonary opacities. On soft tissue windows, soft tissue emphysema at the base of the neck extends to the posterior soft tissues around the chest wall and emanates from the pneumomediastinum, which is new from prior. No axillary, supraclavicular, hilar, or mediastinal lymphadenopathy. Normal aorta. Main pulmonary artery top normal in size. Heart top normal in size. No pericardial or pleural effusion. Multifocal hypodensities in the liver new from prior exam in 07/10/2016. These have suspicious morphologies with irregular margins. Left adrenal mass, new from June. Lymphadenopathy in the gastrohepatic, portacaval, and celiac regions. On lung windows, slight interval clearance of previously noted groundglass opacity that was diffusely involving all 5 lobes. Persistent innumerable nodular opacities with nodular interlobular septal thickening. Persistent extensive consolidation in the left lower lobe. Emphysematous changes noted at the apices. Airways demonstrate wall thickening. No stalin bronchial or tracheal wall disruption. On bone windows, degenerative changes of the thoracic spine. Previously noted scattered lytic lesions in the vertebral bodies again suggested. IMPRESSION: 1. Significant interval clearance of groundglass opacity that previously diffusely affected all 5 lobes could this likely indicates improved edema or infection. 2. Innumerable irregular pulmonary nodules consistent with diffuse metastatic disease. 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 3. More dense left lower lobe consolidation could relate to metastatic disease or superimposed consolidation/pneumonia. 4. Notably, interval development of multiple hepatic lesions, which are new from June 2016 and are most suspicious for hepatic metastatic disease. Additionally, left adrenal nodule is new since June and also consistent with a site of metastatic disease as well as upper abdominal lymphadenopathy. 5. Findings again suggestive of osseous metastatic disease. 6. Extensive pneumomediastinum. Electronically signed by: Lang Amaya M.D. 12/08/2016 1:33 PM Dictated Date/Time: 12/08/2016 1:23 PM
[2016-12-08 14:00] LABS: URINE APPEARANCE CLEAR (CLEAR); URINE BILIRUBIN NEG (NEG); URINE COLOR YELLOW; URINE NITRITE NEG (NEG); URINE SPECIFIC GRAVITY 1.021 (1.000-1.030); UROBILINOGEN NEG (NEG); ZZUR CULT IF INDIC CLEAN CATCH NO
[2016-12-08 14:05] LABS: MANUAL MICROSCOPIC REQUIRED? NO; REVIEW REQ? NO
[2016-12-08 14:15] LABS: POTASSIUM 3.8 mmol/L (3.5-5.1)
--- NOTE | 2016-12-08 15:37 | Medical Consult ---
Consultation Note Date of Service Dec 08, 2016. Consultation Note Consult Dictated #[id number]
[2016-12-08] MEDS ORDERED: ACETAMINOPHEN 325 MG TAB PO PRN (15:45)
[2016-12-08] MEDS ORDERED: ONDANSETRON INJ 2 MG/ML 2 ML VIAL IV PRN (15:45)
[2016-12-08 15:55] VITALS: BP 140/97; PULSE 106; TEMP 36.7; O2SAT 96; BMI 28.8
[2016-12-08] MEDS ORDERED: GUAIFENESIN/CODEINE 100MG/10MG 5ML UDC PO PRN (16:00)
--- NOTE | 2016-12-08 16:09 | Medical Consult ---
Consultation Date of Consultation: Dec 08, 2016. Attending Physician: History of Present Illness 56 yo female with stage IV lung CA presented to ED for 1 day of swelling in the neck and chest wall. Currently undergoing radiation therapy, previously on chemotherapy. CT chest was performed which showed extensive pneumomediastinum that had spread to the soft tissues of the neck and anterior chest wall. She has no recent neck surgery, no history of neck trauma. She denies any dysphagia , denies hoarseness, denies sore throat. Denies dyspnea. ED called thoracic surgery who recommend ENT eval to rule out head and neck source of the cervical emphysema. She states that she had heartburn a few days ago but this resolved. Never had any dysphagia at any point. No hemoptysis. No alleviating or exacerbating factors. No other associated signs or symptoms. Past Medical/Surgical History Medical Problems: (1) Altered mental status Status: Acute (2) Leukocytosis Status: Acute (3) Metastatic lung cancer (metastasis from lung to other site) Status: Acute (4) Pneumomediastinum Status: Acute (5) Pneumonia Status: Acute Family History Cancer Diabetes mellitus Hypertension Social History Smoking Status: Former Smoker Smokeless Tobacco Use: No Drug Use: none Marital Status: Housing Status: lives with family Occupation Status: unemployed Allergies Coded Allergies: No Known Allergies (Unverified , 12/08/16) PER PATIENT AND DEION IN ASU Current Inpatient Medications Current Inpatient Medications Medications (Trade) Dose Ordered Sig/Jaziel Route Start Time Stop Time Status Last Admin Dose Admin Ioversol (Optiray 320) 100 ml UD PRN IV 12/08/16 12:45 12/12/16 12:44 Acetaminophen (Tylenol Tab) 650 mg Q4H PRN PO 12/08/16 15:45 01/07/17 15:44 UNV Ondansetron HCl (Zofran Inj) 4 mg Q6H PRN IV 12/08/16 15:45 01/07/17 15:44 UNV Review of Systems Constitutional: No fever, No chills, No sweats, No weight loss, No weakness, No fatigue, No problem reported Eyes: No worsening of vision, No eye pain, No redness, No discharge, No diplopia, No problem reported ENT: + problem reported (see HPI) Respiratory: + cough Cardiovascular: No chest pain, No orthopnea, No PND, No edema, No claudication , No palpitations, No problem reported Neurologic: No memory loss, No paralysis, No weakness, No numbness/tingling, No vertigo, No balance problems, No problem reported Endocrine: No fatigue, No excessive thirst, No excessive urination, No problem reported Hematologic / Lymphatic: No abnormal bleeding/bruising, No clotting problems, No swollen lymph nodes, No night sweats, No problem reported Physical Exam Date Time Temp Pulse Resp B/P (MAP) Pulse Ox O2 Delivery O2 Flow Rate FiO2 12/08/16 15:11 100 28 96 12/08/16 15:01 150/100 12/08/16 14:56 109 33 95 12/08/16 14:41 102 26 96 12/08/16 14:31 153/97 12/08/16 14:26 102 27 96 12/08/16 14:18 146/103 12/08/16 14:01 149/103 12/08/16 13:56 101 26 95 12/08/16 13:54 100 12/08/16 13:51 143/102 12/08/16 13:06 108 23 12/08/16 13:01 161/99 12/08/16 12:57 157/98 12/08/16 12:36 105 18 95 12/08/16 12:31 142/104 12/08/16 12:24 103 25 96 12/08/16 12:01 156/99 12/08/16 11:54 107 25 95 12/08/16 11:54 108 20 149/103 95 Nasal Cannula 2.0 12/08/16 11:49 149/103 12/08/16 11:36 96 Nasal Cannula 2.0 12/08/16 11:31 172/122 12/08/16 11:24 111 165/113 97 Nasal Cannula 2.0 12/08/16 11:24 110 36 97 12/08/16 11:15 112 12/08/16 10:58 36.7 104 18 136/92 98 Nasal Cannula 2.0 PROCEDURE Fiberoptic laryngoscopy was performed which revealed normal nasopharyngeal exam , normal posterior and lateral pharyngeal mojica, normal post cricoid space and normal piriform sinuses. No masses or lesions identified. Vocal cord mobility was normal, no paresis or paralysis. Epiglottis is crisp. False cords normal. Arytenoids and AE folds normal on exam as well. Glottic airway widely patent. Patient tolerated procedure well. General Appearance: WD/WN, no apparent distress Head: normocephalic, atraumatic Eyes: normal inspection, PERRL, EOMI ENT: + pertinent finding (palpable bilateral cervical emphysema noted, which extended down onto the chest wall. ) Neck: no JVD, + pertinent finding (see ENT exam) Respiratory/Chest: no respiratory distress, no accessory muscle use Cardiovascular: no edema, no JVD Skin: normal color, warm/dry Lymphatic: no adenopathy, + pertinent finding (right supraclavicular adenopathy ) Laboratory Results Last 24 Hours Test 12/08/16 11:40 12/08/16 12:57 12/08/16 13:18 12/08/16 13:44 White Blood Count 19.19 K/uL Red Blood Count 4.93 M/uL Hemoglobin 11.7 g/dL Hematocrit 38.9 % Mean Corpuscular Volume 78.9 fL Mean Corpuscular Hemoglobin 23.7 pg Mean Corpuscular Hemoglobin Concent 30.1 g/dl Platelet Count 144 K/uL Mean Platelet Volume 10.0 fL Neutrophils (%) (Auto) 92.6 % Lymphocytes (%) (Auto) 2.4 % Monocytes (%) (Auto) 1.6 % Eosinophils (%) (Auto) 0.6 % Basophils (%) (Auto) 0.1 % Neutrophils # (Auto) 17.78 K/uL Lymphocytes # (Auto) 0.47 K/uL Monocytes # (Auto) 0.30 K/uL Eosinophils # (Auto) 0.11 K/uL Basophils # (Auto) 0.02 K/uL RDW Standard Deviation 67.6 fL RDW Coefficient of Variation 23.6 % Immature Granulocyte % (Auto) 2.7 % Immature Granulocyte # (Auto) 0.51 K/uL Toxic Granulation 1+ Toxic Vacuolation 1+ Anisocytosis PRESENT Microcytosis PRESENT Sodium Level 135 mmol/L Potassium Level mmol/L 3.8 mmol/L Chloride Level 100 mmol/L Carbon Dioxide Level 27 mmol/L Anion Gap 8.0 mmol/L Blood Urea Nitrogen 17 mg/dl Creatinine 0.39 mg/dl Est Creatinine Clear Calc Drug Dose 162.7 ml/min Estimated GFR () 137.0 Estimated GFR (Non- 118.2 BUN/Creatinine Ratio 42.7 Random Glucose 286 mg/dl Calcium Level 7.8 mg/dl Total Bilirubin 0.4 mg/dl Aspartate Amino Transf (AST/SGOT) U/L 7 U/L Alanine Aminotransferase (ALT/SGPT) 23 U/L Alkaline Phosphatase 91 U/L Total Protein 5.6 gm/dl Albumin 2.4 gm/dl Globulin 3.2 gm/dl Albumin/Globulin Ratio 0.8 Prothrombin Time 10.7 SECONDS Prothromb Time International Ratio 1.0 Activated Partial Thromboplast Time 25.4 SECONDS Partial Thromboplastin Ratio 1.0 Urine Color YELLOW Urine Appearance CLEAR Urine pH 7.0 Urine Specific [place] 1.021 Urine Protein NEG Urine Glucose (UA) 2+ Urine Ketones NEG Urine Occult Blood NEG Urine Nitrite NEG Urine Bilirubin NEG Urine Urobilinogen NEG Urine Leukocyte Esterase NEG Assessment & Plan 56 yo female with Stage IV lung cancer, acute onset pneumomediastinum tracking to neck causing cervical emphysema - no obvious pharyngeal or laryngeal source on exam and on fiberoptic laryngoscopy today. - patient reassured her comprehensive head and neck exam and fiberoptic laryngoscopy was normal. - suspect her cervical emphysema has tracked superiorly from her mediastinum based on no history of trauma to the neck or recent neck surgery and no obvious head and neck source on exam. - thoracic surgery to eval patient for eval of source from distal airway/ esophagus - cervical emphysema likely resolve with observation. would consider antibiotic coverage - call with questions
--- NOTE | 2016-12-08 16:20 | History and Physical ---
History & Physical Date & Time of Service: Dec 08, 2016 at 15:57 Chief Complaint: From Rad/Onc, Swelling Through Neck,Subq Emphysema Primary Care Physician: Reynold Marks M.D. History of Present Illness Source: patient Pt is a 56 yo female who presents to the ER with complaints of persistent swelling to her neck that began yesterday. Pt currently undergoing radiation treatment for metastatic lung cancer to brain with her last radiation treatment yesterday. Pt reports feeling generalized neck swelling yesterday but denied any worsening shortness of breath. Upon follow up with Dr Sherman, it was noted that pt had crackles and was referred to ER for further evaluation. CT chest notable for extensive pneumomediastinum. The patient denies any fever or chills and reports normal eating and drinking. She states that she is on 2-2.5 liters of supplemental nasal cannula oxygen at all times. Past Medical/Surgical History Medical Problems: (1) Hypertension Status: Chronic (2) Pneumonia Status: Resolved Surgical Problems: (1) Previous section Status: Resolved Family History Cancer Diabetes mellitus Hypertension Social History Smoking Status: Former Smoker Smokeless Tobacco Use: No Drug Use: none Marital Status: Occupational Status: unemployed Immunizations History of Influenza Vaccine: Unknown History of Tetanus Vaccine?: Unknown History of Pneumococcal: Unknown History of Hepatitis B Vaccine: Unknown Multi-Drug Resistant Organisms History of MDRO: No Allergies Coded Allergies: No Known Allergies (Unverified , 12/08/16) PER PATIENT AND DEION IN ASU Home Medications Scheduled Amlodipine (Norvasc), 5 MG PO DAILY Calcium Carbonate (Tums), 2 TID Coenzyme Q10 (Ubidecarenone) (Coq-10), Unknown Dose PO DAILY Dexamethasone (Decadron), 1 TAB PO Q12 Folic Acid (Folic Acid), 1 MG PO DAILY Home O2 Therapy (Oxygen), 3 LITER NA DAILY Levothyroxine Sodium (Levothyroxine Sodium), 100 MCG PO DAILY Omeprazole (Prilosec), 40 MG PO QAM Scheduled PRN Loperamide Hcl (Imodium), 2 MG PO Q2H PRN for Diarrhea Loratadine (Claritin), 10 MG PO DAILY PRN for Nasal Congestion Naproxen Sodium (Aleve), 220 MG PO BID PRN for Pain Review of Systems Constitutional: No fever, No chills, No sweats, No weakness Respiratory: + cough, + sputum, + shortness of breath, No wheezing, No dyspnea on exertion, No dyspnea at rest Cardiovascular: No chest pain, No orthopnea, No PND, No edema Abdomen: No pain, No nausea, No vomiting, No diarrhea Musculoskeletal: No joint pain, No muscle pain, No swelling, No calf pain Genitourinary - Female: No dysuria, No urinary frequency, No urinary urgency, No urinary incontinence Neurologic: No memory loss, No paralysis, No weakness, No numbness/tingling Psychiatric: No depression symptoms, No anhedonism, No anxiety, No insomnia Endocrine: No fatigue, No excessive thirst Integumentary: No rash, No itch Physical Exam Vital Signs Date Time Temp Pulse Resp B/P (MAP) Pulse Ox O2 Delivery O2 Flow Rate FiO2 12/08/16 15:11 100 28 96 12/08/16 15:01 150/100 12/08/16 14:56 109 33 95 12/08/16 14:41 102 26 96 12/08/16 14:31 153/97 12/08/16 14:26 102 27 96 12/08/16 14:18 146/103 12/08/16 14:01 149/103 12/08/16 13:56 101 26 95 12/08/16 13:54 100 12/08/16 13:51 143/102 12/08/16 13:06 108 23 12/08/16 13:01 161/99 12/08/16 12:57 157/98 12/08/16 12:36 105 18 95 12/08/16 12:31 142/104 12/08/16 12:24 103 25 96 12/08/16 12:01 156/99 12/08/16 11:54 107 25 95 12/08/16 11:54 108 20 149/103 95 Nasal Cannula 2.0 12/08/16 11:49 149/103 12/08/16 11:36 96 Nasal Cannula 2.0 12/08/16 11:31 172/122 12/08/16 11:24 111 165/113 97 Nasal Cannula 2.0 12/08/16 11:24 110 36 97 12/08/16 11:15 112 12/08/16 10:58 36.7 104 18 136/92 98 Nasal Cannula 2.0 General Appearance: WD/WN, no apparent distress Head: normocephalic, atraumatic Eyes: normal inspection, PERRL, EOMI, sclerae normal Neck: supple, + pertinent finding (generalized swelling) Respiratory/Chest: chest non-tender, no respiratory distress, no accessory muscle use, + crackles Cardiovascular: no edema, no gallop, no JVD, no murmur Abdomen/GI: non tender, soft, no organomegaly, no pulsatile mass Extremities/Musculoskelatal: normal inspection, no calf tenderness, normal capillary refill, no pedal edema Neurologic/Psych: no motor/sensory deficits, alert, normal mood/affect, oriented x 3 Diagnostics Laboratory Results Results Past 24 Hours Test 12/08/16 11:40 12/08/16 12:57 12/08/16 13:18 12/08/16 13:44 Range/Units White Blood Count 19.19 4.8-10.8 K/uL Red Blood Count 4.93 4.2-5.4 M/uL Hemoglobin 11.7 12.0-16.0 g/dL Hematocrit 38.9 37-47 % Mean Corpuscular Volume 78.9 80-100 fL Mean Corpuscular Hemoglobin 23.7 25-34 pg Mean Corpuscular Hemoglobin Concent 30.1 32-36 g/dl Platelet Count 144 130-400 K/uL Mean Platelet Volume 10.0 7.4-10.4 fL Neutrophils (%) (Auto) 92.6 % Lymphocytes (%) (Auto) 2.4 % Monocytes (%) (Auto) 1.6 % Eosinophils (%) (Auto) 0.6 % Basophils (%) (Auto) 0.1 % Neutrophils # (Auto) 17.78 1.4-6.5 K/uL Lymphocytes # (Auto) 0.47 1.2-3.4 K/uL Monocytes # (Auto) 0.30 0.11-0.59 K/uL Eosinophils # (Auto) 0.11 0-0.5 K/uL Basophils # (Auto) 0.02 0-0.2 K/uL RDW Standard Deviation 67.6 36.4-46.3 fL RDW Coefficient of Variation 23.6 11.5-14.5 % Immature Granulocyte % (Auto) 2.7 % Immature Granulocyte # (Auto) 0.51 0.00-0.02 K/uL Toxic Granulation 1+ Toxic Vacuolation 1+ Anisocytosis PRESENT Microcytosis PRESENT Sodium Level 135 136-145 mmol/L Potassium Level 3.8 3.5-5.1 mmol/L Chloride Level 100 98-107 mmol/L Carbon Dioxide Level 27 21-32 mmol/L Anion Gap 8.0 3-11 mmol/L Blood Urea Nitrogen 17 7-18 mg/dl Creatinine 0.39 0.60-1.20 mg/dl Est Creatinine Clear Calc Drug Dose 162.7 ml/min Estimated GFR () 137.0 Estimated GFR (Non- 118.2 BUN/Creatinine Ratio 42.7 10-20 Random Glucose 286 70-99 mg/dl Calcium Level 7.8 8.5-10.1 mg/dl Total Bilirubin 0.4 0.2-1 mg/dl Aspartate Amino Transf (AST/SGOT) 7 15-37 U/L Alanine Aminotransferase (ALT/SGPT) 23 12-78 U/L Alkaline Phosphatase 91 45-117 U/L Total Protein 5.6 6.4-8.2 gm/dl Albumin 2.4 3.4-5.0 gm/dl Globulin 3.2 2.5-4.0 gm/dl Albumin/Globulin Ratio 0.8 0.9-2 Prothrombin Time 10.7 9.0-12.0 SECONDS Prothromb Time International Ratio 1.0 0.9-1.1 Activated Partial Thromboplast Time 25.4 21.0-31.0 SECONDS Partial Thromboplastin Ratio 1.0 Urine Color YELLOW Urine Appearance CLEAR CLEAR Urine pH 7.0 4.5-7.5 Urine Specific [place] 1.021 1.000-1.030 Urine Protein NEG NEG Urine Glucose (UA) 2+ NEG Urine Ketones NEG NEG Urine Occult Blood NEG NEG Urine Nitrite NEG NEG Urine Bilirubin NEG NEG Urine Urobilinogen NEG NEG Urine Leukocyte Esterase NEG NEG Impression Assessment and Plan Pt is a 56 yo female with stage 4 lung cancer with mets to brain who presents as a referral from Dr Sherman's office for crackles noted on exam. Acute pneumomediastinum in setting of chronic respiratory failure. Admit to tele at this time. Cont O2 supplementation and minimized cough with Robitussin PRN. ENT and thoracic surgery consulted. No acute indication for chest tube. Conservative measures at this time. Stage 4 lung cancer with mets to brain, follows with Dr Sherman, consult rad onc, unlikely to have radiation tx scheduled 12/09 Leukocytosis likely reactive vs secondary to decadron use. Cont to monitor Hypothyroidism, cont synthroid HTN, cont norvasc Pt is FULL CODE VTE Prophylaxis VTE Risk Assessment Done? Y/N: Yes Risk Level: Moderate
[2016-12-08 17:01] VITALS: BP 153/94; PULSE 103; TEMP 36.8; O2SAT 96; Ht 162.6 cm; Wt 77.9 kg
[2016-12-08 20:15] VITALS: BP 148/96; PULSE 102; TEMP 36.6; O2SAT 95
[2016-12-08] MEDS ORDERED: ZOLPIDEM TARTRATE 5 MG TAB PO PRN (20:45)
[2016-12-08] MEDS: DEXAMETHASONE 4 MG TAB PO SCH (21:51)
[2016-12-08] MEDS: NAPROXEN 250 MG TAB PO PRN (21:52)
--- NOTE | 2016-12-09 00:24 | CONSULTATION REPORT ---
DATE OF CONSULTATION: 12/08/2016 HISTORY OF PRESENT ILLNESS: Mediastinal emphysema. HISTORY OF PRESENT ILLNESS: This is a very pleasant 56-year-old female who I was asked to evaluate in the Emergency Department by Dr. Ivan Xie. The patient has a history of nonsmall cell lung cancer that is stage IV with known bony and brainy metastases. The patient says she was previously receiving chemotherapy, which has now been stopped, but she is concurrently undergoing radiation therapy for brain mets. The patient says that she was doing well; however, she does note approximately 1 week ago, she had some shortness of breath, indigestion with belching. She says that the belching did relieve her indigestion, but then she also admits to having a slight coughing spell. Subsequently, thereafter she developed some progressive swelling of her neck as well as a nasal quality of her voice with some associated shortness of breath. She said that she noticed a significant amount of neck swelling yesterday and when she presented for radiation therapy today, they were concerned and sent the patient to the Emergency Department for further evaluation. It is noteworthy to mention that the patient says that and neck swelling is markedly improved over the past 24 hours. In the Emergency Department, labs were performed where sodium is noted to 135, potassium and BUN were normal. Her creatinine was low at 0.3. The patient had a CBC, where white blood cell count is 19.1, hemoglobin and hematocrit 11.7 and 38.9 and platelet count was noted to be within normal range. Coagulation studies are all within normal range. Urinalysis was performed that was negative for urinary tract infection. Chest x-ray showed extensive pneumomediastinum, subcutaneous gas in her neck, no pneumothorax was noted. CT scan of the chest was also performed, which showed extensive pneumomediastinum; however, pneumothorax was not noted. I questioned the patient on other symptoms. She has no recent falls, trauma, or head injury. She denies any visual changes, tinnitus or sore throat. She denies any neck pain, but did note neck swelling as described above. She says that she had some shortness of breath that was slightly worse than what her baseline is. She also did note some chest pain/ingestion that was relieved with belching that has resolved over the past several days. She denies abdominal pain. She denies dysuria. She has no history of stroke, seizure, migraine headache, DVT or PE. PAST MEDICAL HISTORY: Includes, 1. Stage IV nonsmall cell lung cancer with known bony and brain metastases. 2. Hypertension. PAST SURGICAL HISTORY: Includes: 1. . 2. Bronchoscopy, which does have a diagnosis of lung cancer. ALLERGIES: None. OUTPATIENT MEDICATION REGIMEN: Includes, 1. Norvasc 5 mg daily. 2. Tums 2 tablets 3 times daily. 3. Coenzyme Q10 daily. 4. Decadron 1 tablet every 12 hours. 5. Folic acid 1 mg daily. 6. Oxygen 2.5-3 liters via nasal cannula daily continuously. 7. Levothyroxine 100 mcg daily. 8. P.r.n. Imodium. 9. P.r.n. Claritin. 10. P.r.n. Aleve. 11. Omeprazole 40 mg daily. SOCIAL HISTORY: The patient smoked for approximately 1-2 years, less than 1 pack of cigarettes per day, but quit greater than 20 years ago. FAMILY HISTORY: Mother had breast cancer. REVIEW OF SYSTEMS: See above. PHYSICAL EXAMINATION: VITAL SIGNS: The patient is noted to be afebrile with a temperature of 36.7, her pulse is 100 and regular, respirations are 28 and do not appear labored, blood pressure 150/100, and pulse ox 96% on 2.5 liters of oxygen via nasal cannula. HEENT: Head is atraumatic and normocephalic. EYES: Pupils equal, round and reactive to light and accommodation. Extraocular motions are intact. EARS: Auditory acuity is grossly intact. NOSE: Nasal patency was intact. MOUTH: Has moist mucous membranes. NECK: Supple. There is no tracheal shift. There is no stridor. The patient was noted to have a nasal quality to her voice and there were some subQ emphysema palpated bilaterally on her neck. CARDIOVASCULAR: Regular rate and rhythm. LUNGS: The patient's lungs revealed crackles noted bilaterally. She had a small amount of subcutaneous air palpated in the anterior chest and none in the posterior. She was not using accessory muscles to aid in respiration. No wheezing was noted. ABDOMEN: Soft and nontender. EXTREMITIES: Revealed no cyanosis or clubbing; however, was noted to her fingers. NEUROLOGIC: Cranial nerves II through XII are grossly intact. No focal deficits are noted. DIAGNOSTIC DATA: As noted above. IMPRESSION: A 56-year-old female with pneumomediastinum. PLAN: The cause of the patient pneumomediastinum is not entirely ascertained; however, could be related to underlying lung cancer as well as coughing or belching episodes, where she could have potentially ruptured a bulla on her lung. The patient does not have any pneumothorax, so chest tube is not needed at this time. Due to the extensive subcutaneous emphysema noted in her neck, Dr. Bauer has recommended ear, nose and throat to perform a laryngoscopy. The treating Emergency Room physician has contacted otolaryngology for performance of a laryngoscopy. The patient is subsequently going to be admitted to the hospitalist service. We will continue to follow along while she is in the hospital; although no active intervention from the thoracic surgery is needed at this time.
[2016-12-09 00:47] VITALS: BP 123/87; PULSE 104; TEMP 36.8; O2SAT 95
--- NOTE | 2016-12-09 00:48 | SURGICAL CONSULTATION ---
DATE OF CONSULTATION: 12/08/2016 REASON FOR CONSULTATION: Mediastinal emphysema. HISTORY OF PRESENT ILLNESS: This is a 56-year-old with a history of stage IV lung cancer, currently receiving radiation to her brain for apparent cranial mets from a nonsmall cell lung carcinoma which was diagnosed 15 months ago in August of 2015. She developed some swelling and crackling in her neck and had a nasal quality to her voice. She underwent an x-ray and then a CT scan in the Emergency Room and was found to have mediastinal emphysema. It appeared to be more in the pharyngeal and upper chest area, although it did track down some into the lower airways. She has no evidence of a pneumothorax. She was seen by Dr. Mccrod from otolaryngology and by report a laryngoscopy was performed which showed no evidence of pharyngeal or upper airway abnormalities. She is very stable clinically. At this point, we are going to continue to simply follow her as I think that this is a benign condition which should resolve. For specifics, please refer to the full consultation done by Mr. Moreno Elias. TEENA
[2016-12-09 03:22] VITALS: BP 137/88; PULSE 94; TEMP 36.5; O2SAT 96
[2016-12-09] MEDS: LEVOTHYROXINE 100 MCG TAB PO SCH (06:29)
[2016-12-09 07:14] LABS: MEAN CORPUSCULAR HGB CONC 32.9 g/dl (32-36)
[2016-12-09 07:24] LABS: HEMATOCRIT 38.9 % (37-47); MEAN CELL VOLUME 78.3 fL (80-100); MEAN CORPUSCULAR HEMOGLOBIN 25.8 pg (25-34); RED BLOOD COUNT 4.97 M/uL (4.2-5.4); WHITE BLOOD COUNT 16.48 K/uL (4.8-10.8)
[2016-12-09 07:41] LABS: CALCIUM 8.5 mg/dl (8.5-10.1); CREATININE 0.31 mg/dl (0.60-1.20)
[2016-12-09 07:45] VITALS: BP 154/92; PULSE 106; TEMP 36.5; O2SAT 96
[2016-12-09 07:48] LABS: MEAN PLATELET VOLUME 10.2 fL (7.4-10.4); PLATELET COUNT 141 K/uL (130-400)
[2016-12-09 07:51] LABS: ANISOCYTOSIS PRESENT; BASO % 0.2 %; BASO ABS # 0.03 K/uL (0-0.2); COMPLETE YES; IG% 2.4 %; LYMPH % 2.6 %; LYMPH ABS # 0.43 K/uL (1.2-3.4); MONO % 1.3 %; NEUT % 92.5 %; PLT ESTIMATE NORMAL; TOXIC GRANULATION 1+; VACUOLIZATION 1+
--- NOTE | 2016-12-09 07:53 | DIAGNOSTIC IMAGING REPORT ---
CHEST ONE VIEW PORTABLE CLINICAL HISTORY: pneumomediastinum dyspnea COMPARISON STUDY: 12/08/2016 FINDINGS: Unchanging stable pneumomediastinum. Air within the supraclavicular and low cervical regions is stable Interstitial and reticular nodular changes throughout both hemithoraces are stable. Diaphragms remain smooth. IMPRESSION: Unchanging chest. Stable parenchymal infiltrative change and pneumomediastinum The above report was generated using voice recognition software. It may contain grammatical, syntax or spelling errors. Electronically signed by: Lucio Michel M.D. 12/09/2016 7:52 AM Dictated Date/Time: 12/09/2016 7:50 AM
--- NOTE | 2016-12-09 07:59 | Discharge Instructions ---
Discharge Instructions Date of Service Dec 09, 2016. Admission Reason for Admission: Metastic Lung Cancer, Pneumomediastinum Discharge Discharge Diagnosis / Problem: Stage IV non-small cell lung cancer, Pneumomediastinum Discharge Goals Goal(s): Decrease discomfort, Improve function, Diagnostic testing (follow up imaging) Activity Recommendations Activity Limitations: resume your previous activity Lifting Limitations: none Exercise/Sports Limitations: none Shower/Bathe: no limitations . Instructions / Follow-Up Instructions / Follow-Up Medications: no changes The pneumomediastinum should resolve with observation, there is no current treatment or intervention recommended. You were evaluated by both thoracic surgery and ENT, both specialists recommend observation. Dr. Bauer will see you in the office next week, his office will call you. Please continue with radiation oncology treatments as previously scheduled. Current Hospital Diet Patient's current hospital diet: Regular Diet Discharge Diet Recommended Diet: Regular Diet Pending Studies Studies pending at discharge: no Medical Emergencies . Who to Call and When: Medical Emergencies: If at any time you feel your situation is an emergency, please call 911 immediately. . Non-Emergent Contact Non-Emergency issues call your: Primary Care Provider, Oncologist Call Non-Emergent contact if: you have a fever, you have any medication questions . . "Provider Documentation" section prepared by Hunter Melgar. . VTE Core Measure Inpt VTE Proph given/why not?: [facility]'s [place] Drug Monitoring Program Search Results: no issues identified
--- NOTE | 2016-12-09 08:10 | Radiation Oncology Progress Nt ---
Radiation Oncology Progress Nt Date of Service Date of Service: Dec 09, 2016. Reason For Admission Pulmonary symptoms (Subcutaneous emphysema with extension to neck) Requesting Physician Dr. Ramón Valero Diagnosis (1) Pneumomediastinum (2) Primary adenocarcinoma of lower lobe of right lung History of a chronic cough, abnormal CT of the chest 08/14/2015 Innumerable nodular opacities upper and lower lung bilaterally PET/CT 08/26/2015 FDG avid pulmonary nodules, avid lymph nodes, bone metastasis, and avidity of the endometrium Status post bronchoscopy and biopsy 08/28/2015 Adenocarcinoma Chemotherapy with Taxol/carboplatin, and Avastin Progression of disease and placement on Tarceva December 2015 Left hip pain with MRI showing 6.5 cm lytic mass Chemotherapy changed to Alimta 09/24/2016 Referral for palliative radiation therapy to the left hip Status post completion of radiation therapy 11/06/2016. She received 3000 cGy. Finding of brain metastasis 11/17/2016. Last Edited By: Mickie Sherman on Nov 08:07 Subjective Pt evaluation today including: conversation with hospitalist, conversation with inpatient team, chart review, lab review, review of studies Patient is current under treatment for whole radiation therapy in the outpatient setting. Patient was seen and evaluated in our department yesterday and presented with signs of subcutaneous emphysema. The patient was send urgently to ED for further evaluation. In ED, CT of Thorax was ordered and revealed: "IMPRESSION: 1. Significant interval clearance of groundglass opacity that previously diffusely affected all 5 lobes could this likely indicates improved edema or infection. 2. Innumerable irregular pulmonary nodules consistent with diffuse metastatic disease. 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 3. More dense left lower lobe consolidation could relate to metastatic disease or superimposed consolidation/pneumonia. 4. Notably, interval development of multiple hepatic lesions, which are new from June 2016 and are most suspicious for hepatic metastatic disease. Additionally, left adrenal nodule is new since June and also consistent with a site of metastatic disease as well as upper abdominal lymphadenopathy. 5. Findings again suggestive of osseous metastatic disease. 6. Extensive pneumomediastinum." Thoracic surgery and ENT consulted and evaluated the patient and had no recommendation for acute intervention. Radiation Therapy Has patient started Radiation: Yes Number of Treatments Received: 6 Number of Treatments Planned: 10 Current Chemotherapy: No Objective Vital Signs Date Time Temp Pulse Resp B/P (MAP) Pulse Ox O2 Delivery O2 Flow Rate FiO2 12/09/16 07:45 36.5 106 22 154/92 (112) 96 Nasal Cannula 12/09/16 04:00 Nasal Cannula 3.0 12/09/16 03:22 36.5 94 18 137/88 (104) 96 2.5 12/09/16 00:47 36.8 104 18 123/87 (99) 95 2.5 12/08/16 23:59 Nasal Cannula 3.0 12/08/16 20:15 36.6 102 20 148/96 (113) 95 Nasal Cannula 2.0 12/08/16 20:00 Nasal Cannula 3.0 12/08/16 17:01 36.8 103 18 153/94 96 Nasal Cannula 2.0 12/08/16 16:31 141/90 12/08/16 16:16 101 27 94 12/08/16 16:01 138/98 12/08/16 15:55 36.7 106 28 140/97 96 Nasal Cannula 2.0 12/08/16 15:46 103 32 95 12/08/16 15:31 140/97 12/08/16 15:16 101 30 95 12/08/16 15:11 100 28 96 12/08/16 15:01 150/100 12/08/16 14:56 109 33 95 12/08/16 14:41 102 26 96 12/08/16 14:31 153/97 12/08/16 14:26 102 27 96 12/08/16 14:18 146/103 12/08/16 14:01 149/103 12/08/16 13:56 101 26 95 12/08/16 13:54 100 12/08/16 13:51 143/102 12/08/16 13:06 108 23 12/08/16 13:01 161/99 12/08/16 12:57 157/98 12/08/16 12:36 105 18 95 12/08/16 12:31 142/104 12/08/16 12:24 103 25 96 12/08/16 12:01 156/99 12/08/16 11:54 107 25 95 12/08/16 11:54 108 20 149/103 95 Nasal Cannula 2.0 12/08/16 11:49 149/103 12/08/16 11:36 96 Nasal Cannula 2.0 12/08/16 11:31 172/122 12/08/16 11:24 111 165/113 97 Nasal Cannula 2.0 12/08/16 11:24 110 36 97 12/08/16 11:15 112 12/08/16 10:58 36.7 104 18 136/92 98 Nasal Cannula 2.0 Laboratory Results Last 24 Hours Test 12/08/16 11:40 12/08/16 12:57 12/08/16 13:18 12/08/16 13:44 White Blood Count 19.19 K/uL Red Blood Count 4.93 M/uL Hemoglobin 11.7 g/dL Hematocrit 38.9 % Mean Corpuscular Volume 78.9 fL Mean Corpuscular Hemoglobin 23.7 pg Mean Corpuscular Hemoglobin Concent 30.1 g/dl Platelet Count 144 K/uL Mean Platelet Volume 10.0 fL Neutrophils (%) (Auto) 92.6 % Lymphocytes (%) (Auto) 2.4 % Monocytes (%) (Auto) 1.6 % Eosinophils (%) (Auto) 0.6 % Basophils (%) (Auto) 0.1 % Neutrophils # (Auto) 17.78 K/uL Lymphocytes # (Auto) 0.47 K/uL Monocytes # (Auto) 0.30 K/uL Eosinophils # (Auto) 0.11 K/uL Basophils # (Auto) 0.02 K/uL RDW Standard Deviation 67.6 fL RDW Coefficient of Variation 23.6 % Immature Granulocyte % (Auto) 2.7 % Immature Granulocyte # (Auto) 0.51 K/uL Toxic Granulation 1+ Toxic Vacuolation 1+ Anisocytosis PRESENT Microcytosis PRESENT Sodium Level 135 mmol/L Potassium Level mmol/L 3.8 mmol/L Chloride Level 100 mmol/L Carbon Dioxide Level 27 mmol/L Anion Gap 8.0 mmol/L Blood Urea Nitrogen 17 mg/dl Creatinine 0.39 mg/dl Est Creatinine Clear Calc Drug Dose 162.7 ml/min Estimated GFR () 137.0 Estimated GFR (Non- 118.2 BUN/Creatinine Ratio 42.7 Random Glucose 286 mg/dl Calcium Level 7.8 mg/dl Total Bilirubin 0.4 mg/dl Aspartate Amino Transf (AST/SGOT) U/L 7 U/L Alanine Aminotransferase (ALT/SGPT) 23 U/L Alkaline Phosphatase 91 U/L Total Protein 5.6 gm/dl Albumin 2.4 gm/dl Globulin 3.2 gm/dl Albumin/Globulin Ratio 0.8 Prothrombin Time 10.7 SECONDS Prothromb Time International Ratio 1.0 Activated Partial Thromboplast Time 25.4 SECONDS Partial Thromboplastin Ratio 1.0 Urine Color YELLOW Urine Appearance CLEAR Urine pH 7.0 Urine Specific [place] 1.021 Urine Protein NEG Urine Glucose (UA) 2+ Urine Ketones NEG Urine Occult Blood NEG Urine Nitrite NEG Urine Bilirubin NEG Urine Urobilinogen NEG Urine Leukocyte Esterase NEG Test 12/09/16 06:54 White Blood Count 16.48 K/uL Red Blood Count 4.97 M/uL Hemoglobin 12.8 g/dL Hematocrit 38.9 % Mean Corpuscular Volume 78.3 fL Mean Corpuscular Hemoglobin 25.8 pg Mean Corpuscular Hemoglobin Concent 32.9 g/dl Platelet Count 141 K/uL Mean Platelet Volume 10.2 fL Neutrophils (%) (Auto) 92.5 % Lymphocytes (%) (Auto) 2.6 % Monocytes (%) (Auto) 1.3 % Eosinophils (%) (Auto) 1.0 % Basophils (%) (Auto) 0.2 % Neutrophils # (Auto) 15.25 K/uL Lymphocytes # (Auto) 0.43 K/uL Monocytes # (Auto) 0.21 K/uL Eosinophils # (Auto) 0.17 K/uL Basophils # (Auto) 0.03 K/uL RDW Standard Deviation 67.4 fL RDW Coefficient of Variation 23.8 % Immature Granulocyte % (Auto) 2.4 % Immature Granulocyte # (Auto) 0.39 K/uL Toxic Granulation 1+ Toxic Vacuolation 1+ Platelet Estimate NORMAL Anisocytosis PRESENT Sodium Level 135 mmol/L Potassium Level 4.0 mmol/L Chloride Level 97 mmol/L Carbon Dioxide Level 30 mmol/L Anion Gap 8.0 mmol/L Blood Urea Nitrogen 12 mg/dl Creatinine 0.31 mg/dl Est Creatinine Clear Calc Drug Dose 207.2 ml/min Estimated GFR () 147.8 Estimated GFR (Non- 127.5 BUN/Creatinine Ratio 39.0 Random Glucose 179 mg/dl Calcium Level 8.5 mg/dl Assessment and Plan We have discussed the patients care with the primary hospital service. The patients reason for admission is unrelated to radiation therapy. The primary hospital service has recommended the patient continue with radiation therapy while in the inpatient setting. The patient was evaluated in our department and will continue with radiation therapy during this hospital course. Please call us with any further questions or concerns or if the patients condition changes during her hospital admission.
--- NOTE | 2016-12-09 08:31 | SURGERY PROGRESS NOTE ---
DATE: 12/09/2016 SUBJECTIVE: Ms. Lugo was seen today. She is tolerating a diet without difficulty. Her subcutaneous emphysema appeared to be less to me on exam. Her white count is 16,480. In seeing her chest x-ray, infiltrative pattern in both lung oh is unchanged. ASSESSMENT AND PLAN: Pneumomediastinum. I think this is a benign condition due to air tracking back along one of the airways. From my standpoint, this patient will be discharged. We have communicated this to Dr. Melgar from the hospitalist service.
[2016-12-09] MEDS ORDERED: AMLODIPINE BESYLATE 5 MG TAB PO SCH (09:00)
[2016-12-09] MEDS ORDERED: PANTOprazole SOD 40 MG TAB PO SCH (09:00)
[2016-12-09] MEDS ORDERED: [UNRECOGNIZED DRUG - OTHER] SCH (09:00)
[2016-12-09] MEDS: DEXAMETHASONE 4 MG TAB PO SCH (09:02)
[2016-12-09] MEDS: NAPROXEN 250 MG TAB PO PRN (09:54)
--- NOTE | 2016-12-09 09:54 | Discharge Summary ---
Discharge Summary Date of Service Dec 09, 2016. Discharge Summary Admission Date: Dec 08, 2016 at 15:45 Discharge Date: Dec 09, 2016 Discharge Disposition: Home Principal Diagnosis: Pneumomediastinum Problems/Secondary Diagnoses: Stage IV non-small cell lung cancer Immunizations: Have You Had Influenza Vaccine: Unknown History of Tetanus Vaccine?: Unknown History of Pneumococcal: Unknown History of Hepatitis B Vaccine: Unknown Procedures: none Consultations: ENT Thoracic surgery Medication Reconciliation Continued Medications: Amlodipine (Norvasc) 5 Mg Tab 5 MG PO DAILY, TAB Calcium Carbonate (Tums) 500 Mg Chew 2 TID Coenzyme Q10 (Ubidecarenone) (Coq-10) 30 Mg Cap Unknown Dose PO DAILY Dexamethasone (Decadron) 4 Mg Tab 1 TAB PO Q12 for 2 Days, #4 TAB Folic Acid (Folic Acid) 1 Mg Tab 1 MG PO DAILY Home O2 Therapy (Oxygen) Gas 3 LITER NA DAILY, % Levothyroxine Sodium (Levothyroxine Sodium) 112 Mcg Tab 100 MCG PO DAILY Loperamide Hcl (Imodium) 2 Mg Cap 2 MG PO Q2H PRN for Diarrhea, #30 CAP 0 Refills purchase over the counter Loratadine (Claritin) 10 Mg Tab 10 MG PO DAILY PRN for Nasal Congestion, TAB Naproxen Sodium (Aleve) 220 Mg Tab 220 MG PO BID PRN for Pain, TAB Omeprazole (Prilosec) 40 Mg Cap 40 MG PO QAM, #30 CAP 5 Refills Discharge Exam Patient feeling well, no dyspnea, no pain. Plan for brain radiation today at 1050 as previously scheduled. Discussed the case with Dr. Bauer and Dr. Sherman. Patient will follow up with thoracic surgery in a week, repeat imaging at that time. Review of Systems: Constitutional: No fever, No chills, No sweats, No weight loss, No weakness , No fatigue, No problem reported Eyes: No worsening of vision, No eye pain, No redness, No discharge, No diplopia, No problem reported ENT: No hearing loss, No unusual epistaxis, No nasal symptoms, No sore throat, No tinnitus, No dental problems, No trouble swallowing, No problem reported Respiratory: + cough, + dyspnea on exertion, No sputum, No wheezing, No shortness of breath, No dyspnea at rest, No hemoptysis, No problem reported Cardiovascular: No chest pain, No orthopnea, No PND, No edema, No claudication, No palpitations, No problem reported Abdomen: No pain, No nausea, No vomiting, No diarrhea, No constipation, No GI bleeding, No problem reported Musculoskeletal: No joint pain, No muscle pain, No swelling, No calf pain, No problem reported Genitourinary - Female: No dysuria, No urinary frequency, No urinary urgency , No urinary incontinence, No urinary retention, No hematuria Neurologic: No memory loss, No paralysis, No weakness, No numbness/tingling , No vertigo, No balance problems, No problem reported Psychiatric: No depression symptoms, No anhedonism, No anxiety, No insomnia , No substance abuse, No problem reported Endocrine: No fatigue, No excessive thirst, No excessive urination, No problem reported Hematologic / Lymphatic: No abnormal bleeding/bruising, No clotting problems , No swollen lymph nodes, No night sweats, No problem reported Integumentary: No rash, No itch, No new/changing skin lesions, No color change, No bleeding, No problem reported Physical Exam: General Appearance: WD/WN, no apparent distress Eyes: normal inspection, EOMI, sclerae normal ENT: normal ENT inspection, hearing grossly normal, pharynx normal Neck: supple, no adenopathy, no JVD, trachea midline Respiratory/Chest: chest non-tender, no respiratory distress, no accessory muscle use, + decreased breath sounds, + rhonchi Cardiovascular: no edema, no gallop, no JVD, no murmur, normal peripheral pulses, + tachycardia Abdomen / GI: normal bowel sounds, non tender, soft, no organomegaly Extremities: normal inspection, no calf tenderness, normal capillary refill , no pedal edema, normal range of motion Neurologic/Psychiatric: academic specialist II-XII nml as tested, no motor/sensory deficits , alert, normal mood/affect, normal reflexes, oriented x 3 Skin: normal color, warm/dry, no rash Hospital Course Pt is a 56 yo female with stage 4 lung cancer with mets to brain who presents as a referral from Dr Sherman's office for crackles noted on exam. Acute pneumomediastinum in setting of chronic respiratory failure. observed overnight, remains stable with some sinus tachycardia no increased dyspnea compared to baseline discussed the case with Dr. Bauer, stable for discharge from their perspective, will see in office next week evaluated by ENT in the ED, no neck source of pneumomediastinum Stage 4 lung cancer with mets to brain, follows with Dr Sherman, will send for whole brain radiation on 12/09 and d/c home afterwards Leukocytosis likely reactive vs secondary to decadron use Hypothyroidism, cont synthroid HTN, cont norvasc Pt is FULL CODE Total Time Spent: Less than 30 minutes This includes examination of the patient, discharge planning, medication reconciliation, and communication with other providers. Discharge Instructions Please refer to the electronic Patient Visit Report (Discharge Instructions) for additional information. Follow-Up Dr. Bauer next week Radiation oncology as previously scheduled Medical oncology as previously scheduled Additional Copies To Galen Ruth D.O.; Veeral. Sherman MD; Kendall Bauer MD
[2016-12-09 11:15] VITALS: BP 154/92; PULSE 106; TEMP 36.5; O2SAT 96
--- NOTE | 2016-12-09 12:52 | Ears,Nose,Throat Progress Note ---
Progress Note Date of Service Dec 09, 2016. Subjective Pt evaluation today including: conversation w/ patient, conversation w/ family , physical exam, chart review, lab review Patient doing well. Afebrile overnight. Tolerating diet, no dysphagia or odynophagia. No dyspnea. Feels her neck and chest swelling is improved. Objective Vital Signs Date Time Temp Pulse Resp B/P (MAP) Pulse Ox O2 Delivery O2 Flow Rate FiO2 12/09/16 11:15 36.5 106 22 96 Nasal Cannula 12/09/16 10:04 Nasal Cannula 3.0 12/09/16 08:00 Nasal Cannula 3.0 12/09/16 07:45 36.5 106 22 154/92 (112) 96 Nasal Cannula 12/09/16 04:00 Nasal Cannula 3.0 12/09/16 03:22 36.5 94 18 137/88 (104) 96 2.5 12/09/16 00:47 36.8 104 18 123/87 (99) 95 2.5 12/08/16 23:59 Nasal Cannula 3.0 12/08/16 20:15 36.6 102 20 148/96 (113) 95 Nasal Cannula 2.0 12/08/16 20:00 Nasal Cannula 3.0 12/08/16 17:01 36.8 103 18 153/94 96 Nasal Cannula 2.0 12/08/16 16:31 141/90 12/08/16 16:16 101 27 94 12/08/16 16:01 138/98 12/08/16 15:55 36.7 106 28 140/97 96 Nasal Cannula 2.0 12/08/16 15:46 103 32 95 12/08/16 15:31 140/97 12/08/16 15:16 101 30 95 12/08/16 15:11 100 28 96 12/08/16 15:01 150/100 12/08/16 14:56 109 33 95 12/08/16 14:41 102 26 96 12/08/16 14:31 153/97 12/08/16 14:26 102 27 96 12/08/16 14:18 146/103 12/08/16 14:01 149/103 12/08/16 13:56 101 26 95 12/08/16 13:54 100 12/08/16 13:51 143/102 12/08/16 13:06 108 23 12/08/16 13:01 161/99 12/08/16 12:57 157/98 Physical Exam General Appearance: WD/WN, no apparent distress Eyes: PERRL, EOMI ENT: + pertinent finding (bilateral crepitance on palpation of the neck. Neck edema is improved today. ) Neck: + pertinent finding (see ENT exam) Respiratory/Chest: no respiratory distress, no accessory muscle use Laboratory Results Last 24 Hours Test 12/08/16 12:57 12/08/16 13:18 12/08/16 13:44 12/09/16 06:54 Prothrombin Time 10.7 SECONDS Prothromb Time International Ratio 1.0 Activated Partial Thromboplast Time 25.4 SECONDS Partial Thromboplastin Ratio 1.0 Urine Color YELLOW Urine Appearance CLEAR Urine pH 7.0 Urine Specific [place] 1.021 Urine Protein NEG Urine Glucose (UA) 2+ Urine Ketones NEG Urine Occult Blood NEG Urine Nitrite NEG Urine Bilirubin NEG Urine Urobilinogen NEG Urine Leukocyte Esterase NEG Potassium Level 3.8 mmol/L 4.0 mmol/L Aspartate Amino Transf (AST/SGOT) 7 U/L White Blood Count 16.48 K/uL Red Blood Count 4.97 M/uL Hemoglobin 12.8 g/dL Hematocrit 38.9 % Mean Corpuscular Volume 78.3 fL Mean Corpuscular Hemoglobin 25.8 pg Mean Corpuscular Hemoglobin Concent 32.9 g/dl Platelet Count 141 K/uL Mean Platelet Volume 10.2 fL Neutrophils (%) (Auto) 92.5 % Lymphocytes (%) (Auto) 2.6 % Monocytes (%) (Auto) 1.3 % Eosinophils (%) (Auto) 1.0 % Basophils (%) (Auto) 0.2 % Neutrophils # (Auto) 15.25 K/uL Lymphocytes # (Auto) 0.43 K/uL Monocytes # (Auto) 0.21 K/uL Eosinophils # (Auto) 0.17 K/uL Basophils # (Auto) 0.03 K/uL RDW Standard Deviation 67.4 fL RDW Coefficient of Variation 23.8 % Immature Granulocyte % (Auto) 2.4 % Immature Granulocyte # (Auto) 0.39 K/uL Toxic Granulation 1+ Toxic Vacuolation 1+ Platelet Estimate NORMAL Anisocytosis PRESENT Sodium Level 135 mmol/L Chloride Level 97 mmol/L Carbon Dioxide Level 30 mmol/L Anion Gap 8.0 mmol/L Blood Urea Nitrogen 12 mg/dl Creatinine 0.31 mg/dl Est Creatinine Clear Calc Drug Dose 207.2 ml/min Estimated GFR () 147.8 Estimated GFR (Non- 127.5 BUN/Creatinine Ratio 39.0 Random Glucose 179 mg/dl Calcium Level 8.5 mg/dl Assessment and Plan 56 yo female with Stage IV lung cancer, acute onset pneumomediastinum tracking to neck causing cervical emphysema - improved neck swelling and decreased crepitance today - Thoracic surgery recommended discharge - no reason from ENT standpoint patient could not be discharged - doubt this was ENT related.
[2016-12-11] MEDS ORDERED: FNTTP25 TD (11:33)
[2016-12-14] MEDS ORDERED: tumeric PO (12:59)
[2016-12-14] MEDS ORDERED: BENZ100C84 PO (12:59)
== END 2016-12-09 13:15 | disposition home or self-care (01) | DRG 200 ==
LOC: C.EDB 10:55 → C.2E 15:45 → ENRESERV 16:18
PROVIDERS: ADMIT Hospitalist; ATTEND Internal Medicine
PROC: 0CJS8ZZ Inspection of Larynx, Via Natural or Artificial Opening Endoscopic (ICD-10-PCS; principal; 2016-12-08)
DX: J98.2 Interstitial emphysema (principal); C34.31 Malignant neoplasm of lower lobe, right bronchus or lung; C79.31 Secondary malignant neoplasm of brain; C79.51 Secondary malignant neoplasm of bone; J96.10 Chronic respiratory failure, unspecified whether with hypoxia or hypercapnia; E03.9 Hypothyroidism, unspecified; I10 Essential (primary) hypertension; Z92.3 Personal history of irradiation; Z87.891 Personal history of nicotine dependence; Z79.899 Other long term (current) drug therapy

== ENCOUNTER → 2016-12-17 | Outpatient (CLI) | payer OTHER ==
[~2016-12-17] MED LIST changes: +AMLO-110 PO; -BACL10TA PO; -BENZ100C7 PO; +BENZ100C84 PO; -BROM500T2 PO; +COEN30CA8 PO; -CYAN500T PO; +FNTTP25 TD; -ONDA8TAB6 PO; -SENN-61 PO; +tumeric PO
--- NOTE | 2016-12-17 10:04 | DIAGNOSTIC IMAGING REPORT ---
CHEST 2 VIEWS ROUTINE CLINICAL HISTORY: 56 years-old Female presenting with C34.90 Non-small cell carcinoma of [id number]. TECHNIQUE: PA and lateral views of the chest were obtained. COMPARISON: 12/09/2016. FINDINGS: Subcutaneous emphysema and pneumomediastinum, unchanged. Cardiomediastinal silhouette stable. Persistent left retrocardiac opacity as well as diffuse reticular nodular opacities throughout both lungs. No large effusion or pneumothorax. Osseous structures normal. Upper abdomen normal. IMPRESSION: 1. No significant change. Stable diffuse parenchymal disease as well as pneumomediastinum. Electronically signed by: Lang Amaya M.D. 12/17/2016 10:03 AM Dictated Date/Time: 12/17/2016 10:01 AM
== END | disposition home or self-care (01) ==
LOC: C.RAD 09:37
PROVIDERS: ATTEND Surgery
DX: C34.90 Malignant neoplasm of unspecified part of unspecified bronchus or lung (principal)